=== PATIENT | male | born 1955 | race African-American/Black ===

== ENCOUNTER 2016-07-12 22:19 | Inpatient (IN) ==
[2016-07-12] MEDS ORDERED: FUROSEMIDE 40 MG/4 ML VIAL IV STA ×2 (22:35→23:52)
[2016-07-12] MEDS ORDERED: FUROSEMIDE 40 MG/4 ML VIAL ONE ×2 (22:36→23:52)
--- NOTE | 2016-07-12 23:00 | CT Report ---
Referring physician: Fadi Haddad Exam: CT brain without contrast Date: July 12, 2016 Comparison: None Reason: Altered mental status The patient is an Emergency Department patient on July 12, 2016. Technique: Axial images of the head were obtained without the use of contrast. Total DLP was 1073.1 mGy*cm. Findings: No hydrocephalus or midline shift is present. There is no evidence of an acute infarction, recent intracranial hemorrhage or abnormal mass effect. The osseous structures appear intact. The mastoid air cells and visualized paranasal sinuses are clear. Impression: No acute intracranial abnormality is identified. The CT exam was performed using one or more of the following dose reduction techniques: Automated exposure control and adjustment of the mA and/or kV according to patient size. PROCEDURE INTERPRETED AT [facility] DEPARTMENT OF RADIOLOGY Final Report Signed by: Dr. Dewayne Joiner
[2016-07-12 23:15] LABS: ABG HCO3 26.9 MMOL/L (20-26); ABG Oxygen Saturation 93.3 % (95-100); ABG PCO2 51.5 MM HG (35-48); ABG PH 7.366 (7.35-7.45); ABG PO2 69.9 MM HG (80-95); ABG TCO2 25.7 MMOL/L (23-27); Allen Test Positive
[2016-07-12 23:25] LABS: Basophils % 0.4 % (0.0-0.8); Eosinophils # 0.6 10*3/uL (0.0-0.87); Eosinophils % 8.1 % (0.00-10.9); Hematocrit 40.4 VOL% (42.0-52.0); Hemoglobin 13.8 GM/DL (14.0-18.0); Immature Granulocytes % 0.4 %; Immature Granulocytes Absolute 0.03 #; Lymphocytes # 1.9 10*3/uL (1.4-4.0); Lymphocytes % 28.4 % (21.2-54.2); Mean Corpuscular HGB Conc 34.2 GM/DL (32-36); Mean Corpuscular Hemoglobin 31 PG (27-34); Mean Corpuscular Volume 89.8 FL (87-102); Mean Platelet Volume 11.9 FL (9.6-12.0); Monocytes # 0.6 10*3/uL (0.11-0.8); Monocytes % 8.5 % (1.7-12.7); Neutrophils # 3.7 10*3/uL (1.4-7.4); Neutrophils % 54.2 % (38.7-73.9); Platelet Count 163 T/CUMM (130-400); Red Cell Distribution Width 13.9 % (9.3-17.3); White Blood Count 6.8 T/CUMM (4-12)
[2016-07-12 23:31] LABS: Apearance,Urine Slightly Hazy (Clear); Bilirubin,Urine Negative (Negative); Blood, Urine Negative (Negative); Glucose,Urine (UA) Negative (Negative); Hyaline Casts,Urine 4 /LPF (0-3); Ketones,Urine Negative (Negative); Mucus,Urine Occasional /LPF (Occasional); Nitrite,Urine Negative (Negative); Protein,Urine Negative; RBC,Urine 1 /HPF (0-4); Squamous Epithelial Cell,Urine Occasional /HPF (0-10); Urine Color Yellow (Yellow); Urine Specific Gravity 1.012 (1.001-1.035); Urine Urobilinogen < 2.0 EU/DL (0.2-1.0); WBC,Urine 1 /HPF (0-6)
[2016-07-12 23:35] LABS: Barbiturates Screen,Urine Negative (Negative); Benzodiazepines Screen,Urine Negative (Negative); Cannabinoid Screen,Urine Negative (Negative); Opiate Screen,Urine Negative (Negative); Phencyclidine Screen,Urine Negative (Negative)
[2016-07-12 23:43] LABS: Alanine Aminotransferase 63 U/L (16-61); Albumin 3.7 G/DL (3.4-5.0); Alkaline Phosphatase 67 U/L (45-117); Aspartate Amino Transferase 45 U/L (0-37); Bilirubin,Total < 0.39 MG/DL (0.2-1.0); Blood Urea Nitrogen 14 MG/DL (7-18); Calcium 9.6 MG/DL (8.5-10.1); Glucose 133 MG/DL (74-106); Potassium 3.2 MMOL/L (3.5-5.1); Sodium 143 MMOL/L (136-145)
[2016-07-12 23:46] LABS: Troponin I Only 0.032 NG/ML (0.00-0.045)
[2016-07-13] MEDS ORDERED: POTASSIUM CHLORIDE RIDER 100 ML IV ONE ×2 (00:18→07:47)
[2016-07-13] MEDS ORDERED: cefTRIAXone 1,000 MG in SODIUM CHLORIDE 0.9% 100 ML IV STA (00:39)
--- NOTE | 2016-07-13 00:39 | Emergency Department Note ---
I, Asha Jerome, am scribing for, and in the presence of, Faid Haddad MD 22:41 . IBoo Hans, MD, personally performed the services described in this documentation, ascribed by Asha Jerome in my presence, and it is both accurate and complete . Arrival - Arrival Chief Complaint: Shortness of Breath Stated Complaint: sob ED Nursing Triage Note: ems states pt called [facility] d/t sob cant understand what pt is saying d/t sob. 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 Pt is difficult to arouse and HPI was obtained from significant other. states pt's PCP is at the [facility] but pt has been admitted here before for similar sxs. reports she was at [facility] when pt called and told her he needed to go to the ER but pt had already called EMS. Pt denies CP. states she was with pt earlier today and he was normal and not drowsy. reports " he might start hitting because he thinks back to war." Pt has a PMHx of HTN, CHF , DM, dyslipidemia, asthma, COPD, GERD, and prostate CA. No other complaints/ pain in ED. Onset (ago): hour(s) Consistency: constant Severity: moderate, severe Severity scale (1-10): 6 Quality: other Allergies/Adverse Reactions: Allergies Allergy/AdvReac Type Severity Reaction Status Date / Time lisinopril AdvReac Cough Verified 03/01/16 10:11 Home Medications: Home Medications Medication Instructions Recorded Confirmed Type Albuterol Neb [Proventil Neb] 2.5 mg RESP TX Q6H PRN 02/05/16 03/01/16 History Atorvastatin [Lipitor] 20 mg PO BEDTIME 02/05/16 03/01/16 History Benztropine Mesylate 1 mg PO BEDTIME 02/05/16 03/01/16 History Budesonide/Formoterol 160-4.5 2 puff INH BID 02/05/16 03/01/16 History [Symbicort 160-4.5] Cyclobenzaprine HCl 10 mg PO TID PRN 02/05/16 03/01/16 History Furosemide Tab [Lasix Tab] 20 mg PO BID DIURETIC 02/05/16 03/01/16 History Gabapentin Cap/Tab [Neurontin 600 mg PO TID 02/05/16 03/01/16 History Cap/Tab] Ipratropium/Albuterol Inhaler 1 puff INH QID 02/05/16 03/01/16 History [Combivent Respimat Inhaler] Isosorbide Mononitrate [Isosorbide 60 mg PO BID 02/05/16 03/01/16 History Mononitrate ER] Loratadine 10 mg PO DAILY 02/05/16 03/01/16 History Metoprolol Tartrate Tab [Lopressor 75 mg PO BID 02/05/16 03/01/16 History Tab] Omeprazole [Prilosec] 40 mg PO DAILY 02/05/16 03/01/16 History Potassium Chloride Cap/Tab [K Dur] 20 meq PO BID 02/05/16 03/01/16 History Prazosin HCl 5 mg PO BEDTIME 02/05/16 03/01/16 History Sertraline HCl 100 mg PO DAILY 02/05/16 03/01/16 History Simethicone Chew Tab [Mylicon Chew 80 mg PO TIDPC 02/05/16 03/01/16 History Tab] Theophylline ER Tab 300 mg PO DAILY 02/05/16 03/01/16 History amLODIPine [Norvasc] 10 mg PO DAILY 02/05/16 03/01/16 History glipiZIDE [Glipizide] 20 mg PO BID 02/05/16 03/01/16 History risperiDONE [Risperidone] 3 mg PO BID #60 tablet NS 03/07/16 Rx Albuterol Inhaler [Proventil 2 puff INH Q4H PRN #1 inhaler 05/26/16 Rx Inhaler] predniSONE TAB [PredniSONE] 20 mg PO BID #20 tablet 05/26/16 Rx Review of System - Review of System 12 point system: reviewed and no additional remarkable complaints except as stated - Review of System Constitutional: Absent: chills, fever Respiratory: Present: other (SOB) Cardiovascular: Absent: chest pain Gastrointestinal: Absent: abdominal pain Musculoskeletal: Absent: arm pain, back pain, leg pain, neck pain Skin: Absent: rash Neurological: Absent: headache Medical,Surgical,& Family Hx - Medical History Cardio: History of: CHF, Hypertension Psychological: History of: Depression (PTSD) Endocrine: History of: Diabetes Mellitus (IDDM), Diabetes Mellitus (NIDDM), Dyslipidemia Respiratory: History of: Asthma, COPD, Obstructive Sleep Apnea Genitourinary: History of: Prostate Problems (prostate cancer), Problems ( urinary incontinence ocassionally) Gastrointestinal: History of: GERD - Surgical History Reproductive Surgeries: Surgical HX of;: Prostate Surgery (prostate removal) - Social History Smoking Status: Current every day smoker Frequency of Alcohol Use: None Type of Drug Use: None Exam Vital Signs: Vital Signs Temperature 97.8 F 07/12/16 22:20 Pulse Rate 83 07/12/16 22:20 Respiratory Rate 24 07/12/16 22:20 Blood Pressure 108/79 07/12/16 22:20 O2 Sat by Pulse Oximetry 91 L 07/12/16 22:20 - General General appearance: in no apparent distress, lethargic, other (difficult to arouse) - Head Head exam: Present: atraumatic, normocephalic - Eye Eye exam: Present: PERRL, EOMI - ENT ENT exam: Present: mucous membranes moist. Absent: mucous membranes dry - Neck Neck exam: Present: full ROM. Absent: tenderness - Chest Chest inspection: Present: symmetric chest wall rise. Absent: tenderness - Respiratory Respiratory exam: Present: accessory muscle use, other (expiratory crackles). Absent: wheezes - Cardiovascular Cardiovascular exam: Present: regular rate, normal rhythm, normal heart sounds - Abdominal Exam Abdominal exam: Present: soft. Absent: tenderness - Extremities Exam Extremities exam: Present: full ROM, other (lower extremity edema that is nonpiting in knees). Absent: tenderness - Back Exam Back exam: Present: full ROM. Absent: tenderness - Neurological Exam Neurological exam: Present: alert, oriented X3, CN II-XII intact. Absent: motor sensory deficit - Psychiatric Psychiatric exam: Present: normal affect, normal mood - Skin Skin exam: Present: warm, dry Course Course Narrative: This patient was evaluated with chest x-ray as well as lab work and urinalysis and ABG and EKG. He also had a head CT scan. He was made came back abnormal was cocaine in the urine and ammonia in the blood and a small transaminitis. His potassium was a little bit low so he was given some potassium in the ER. He also was given some Lasix for his history of CHF but did not produce a whole lot of urine. It appeared to have will be consistent with some sort of bronchitis as well as an ammonia level elevation which could be resulting in his altered mental status. His case was discussed with the hospitalist on-call who agreed to come and see him for admission to treat his encephalopathy from his ammonia and any underlying bronchitis that is occurring. Results - Labs CBC & BMP: 07/12/16 23:10 07/12/16 23:10 Lab Results: I have reviewed the patients labs Labs: Laboratory Tests 07/12/16 23:06 ABG pCO2 51.5 H ABG pO2 69.9 L ABG HCO3 26.9 H ABG O2 Saturation 93.3 L ABG Base Excess 3.0 H Laboratory Tests 07/12/16 23:10 Hgb 13.8 L Hct 40.4 L Laboratory Tests 07/12/16 23:10 Urine Color Yellow Urine Appearance Slightly hazy Urine pH 7.0 Ur Specific [place] 1.012 Urine Protein Negative Urine Glucose (UA) Negative Urine Ketones Negative Urine Blood Negative Urine Nitrate Negative Urine Bilirubin Negative Urine Urobilinogen < 2.0 H Urine Leukocytes Negative Urine RBC 1 Urine WBC 1 Ur Squamous Epith Cells Occasional Hyaline Casts 4 Urine Mucus Occasional Laboratory Tests 07/12/16 23:10 U Cocaine Metab Screen Positive H Laboratory Tests 07/12/16 23:10 Potassium 3.2 L Glucose 133 H AST 45 H ALT 63 H Laboratory Tests 07/12/16 23:10 Total Creatine Kinase 205 CK-MB (CK-2) 1.4 Troponin I 0.032 Laboratory Tests 07/12/16 23:10 Ammonia 58 H Laboratory Tests 07/12/16 23:10 B-Natriuretic Peptide 88 Laboratory Tests 07/12/16 23:15 Serum Alcohol < 15 L - Diagnostic Findings Procedure: CT: report reviewed by me (Head: No acute intracranial abnormality is identified.) Disposition Clinical Impression: History of congestive heart failure Case discussed with: patient, patient's family Disposition: Still a Patient Condition: Guarded Instructions: Bronchiolitis (ED) Time of Disposition: 00:39
[2016-07-13] MEDS: POTASSIUM CHLORIDE RIDER 10 MEQ in PREMIX 1 EACH IV SCH ×6 (00:41→07:53)
[2016-07-13] MEDS ORDERED: cefTRIAXone 1,000 MG VIAL ONE (01:53)
--- NOTE | 2016-07-13 02:08 | Hospitalist History & Physical ---
Assessment and Plan (1) Altered mental status Status: Acute Current Visit: Yes (2) Acute exacerbation of chronic obstructive pulmonary disease (COPD) Status: Acute Current Visit: No (3) Diabetes Status: Acute Current Visit: No Qualifiers: Diabetes mellitus type: type 2 (4) History of prostate cancer Status: Acute Current Visit: No (5) Hypertension Status: Chronic Current Visit: No Qualifiers: Hypertension type: essential hypertension Qualified Code(s): I10 - Essential (primary) hypertension (6) Obstructive sleep apnea Status: Chronic Assessment and plan: Plan for this patient will be transfer him to ICU. We will schedule breathing treatments and put him on steroids. Can repeat ABG in the morning. Schedule him some lactulose. Have DT precautions for him. Current Visit: No History of Present Illness Chief complaint: Shortness of breath History of present illness: Mr. Fournier is a 61 year old male with past medical history significant for hypertension, congestive heart failure, diabetes, dyslipidemia, COPD, asthma and reflux presents to our hospital tonight. Patient called his earlier saying that he could not breathe him to please come home. She started coming home that her daughter called her and said ambulance had been called and he had been taken up to the hospital. reports that he is a heavy drinker and smoker. And sometimes he will get confused and that he is back in the worst start hitting things. Patient's lethargic when I examined him and I do feel that it seems in a COPD exacerbation. He is definitely has obstructive sleep apnea. I do feel that a stay in the ICU at least tonight would be appropriate. I was consulted to admit him through the emergency room. Home Medications Medication Instructions Recorded Confirmed Type Albuterol Neb [Proventil Neb] 2.5 mg RESP TX Q6H PRN 02/05/16 03/01/16 History Atorvastatin [Lipitor] 20 mg PO BEDTIME 02/05/16 03/01/16 History Benztropine Mesylate 1 mg PO BEDTIME 02/05/16 03/01/16 History Budesonide/Formoterol 160-4.5 2 puff INH BID 02/05/16 03/01/16 History [Symbicort 160-4.5] Cyclobenzaprine HCl 10 mg PO TID PRN 02/05/16 03/01/16 History Furosemide Tab [Lasix Tab] 20 mg PO BID DIURETIC 02/05/16 03/01/16 History Gabapentin Cap/Tab [Neurontin 600 mg PO TID 02/05/16 03/01/16 History Cap/Tab] Ipratropium/Albuterol Inhaler 1 puff INH QID 02/05/16 03/01/16 History [Combivent Respimat Inhaler] Isosorbide Mononitrate [Isosorbide 60 mg PO BID 02/05/16 03/01/16 History Mononitrate ER] Loratadine 10 mg PO DAILY 02/05/16 03/01/16 History Metoprolol Tartrate Tab [Lopressor 75 mg PO BID 02/05/16 03/01/16 History Tab] Omeprazole [Prilosec] 40 mg PO DAILY 02/05/16 03/01/16 History Potassium Chloride Cap/Tab [K Dur] 20 meq PO BID 02/05/16 03/01/16 History Prazosin HCl 5 mg PO BEDTIME 02/05/16 03/01/16 History Sertraline HCl 100 mg PO DAILY 02/05/16 03/01/16 History Simethicone Chew Tab [Mylicon Chew 80 mg PO TIDPC 02/05/16 03/01/16 History Tab] Theophylline ER Tab 300 mg PO DAILY 02/05/16 03/01/16 History amLODIPine [Norvasc] 10 mg PO DAILY 02/05/16 03/01/16 History glipiZIDE [Glipizide] 20 mg PO BID 02/05/16 03/01/16 History risperiDONE [Risperidone] 3 mg PO BID #60 tablet NS 03/07/16 Rx Albuterol Inhaler [Proventil 2 puff INH Q4H PRN #1 inhaler 05/26/16 Rx Inhaler] predniSONE TAB [PredniSONE] 20 mg PO BID #20 tablet 05/26/16 Rx Allergies Allergy/AdvReac Type Severity Reaction Status Date / Time lisinopril AdvReac Cough Verified 03/01/16 10:11 Medical,Surgical,& Family Hx - Medical History Cardio: History of: CHF, Hypertension Psychological: History of: Depression (PTSD) Endocrine: History of: Diabetes Mellitus (IDDM), Diabetes Mellitus (NIDDM), Dyslipidemia Respiratory: History of: Asthma, COPD, Obstructive Sleep Apnea Genitourinary: History of: Prostate Problems (prostate cancer), Problems ( urinary incontinence ocassionally) Gastrointestinal: History of: GERD - Surgical History Reproductive Surgeries: Surgical HX of;: Prostate Surgery (prostate removal) - Family History Family History: Reports;: Family Heart Disease - Social History Smoking Status: Current every day smoker Frequency of Alcohol Use: None Type of Drug Use: None ROS unobtainable: due to mental status Exam - Constitutional Vitals: Period Temp Pulse Resp BP Sys/Chua Pulse Ox Last 24 Hr 97.8 F 83 24-24 108/79 91 General appearance: over weight - Head Head exam: Present: normal inspection - ENT ENT exam: Present: normal exam - Neck Neck exam: Present: normal inspection - Respiratory Respiratory exam: Present: wheezes - Cardiovascular Cardiovascular exam: Present: regular rate and rhythm - GI/Abdominal GI/Abdominal exam: Present: normal bowel sounds - Extremities Exam Extremities exam: Present: normal inspection - Back Exam Back exam: Present: normal inspection - Neurological Exam Neurological exam: Present: other (Patient's seem sedated) - Psychiatric Psychiatric exam: Present: flat affect - Skin Skin exam: Present: normal color Results - Labs CBC & BMP: 07/12/16 23:10 07/12/16 23:10
[2016-07-13] MEDS ORDERED: GLUCAGON 1 MG VIAL IM PRN (02:11)
[2016-07-13] MEDS ORDERED: DEXTROSE 50% 25 GM/50 ML VIAL IV PRN (02:11)
[2016-07-13] MEDS ORDERED: ALBUTEROL 2.5 MG/3 ML NEB RESP TX PRN (02:11)
[2016-07-13] MEDS ORDERED: ONDANSETRON 4 MG/2 ML VIAL IV PRN (02:11)
[2016-07-13] MEDS ORDERED: LACTULOSE 20 GM/30 ML UDCUP PO PRN (02:15)
[2016-07-13] MEDS ORDERED: LORazepam 1 MG TABLET PO PRN (02:16)
[2016-07-13] MEDS ORDERED: methylPREDNISolone SOD SUC 125 MG/2 ML VIAL IV SCH (04:00)
--- NOTE | 2016-07-13 05:52 | EKG Report ---
Stationary ECG Study [facility] ER Test Date: 07/12/2016 11:42:49 PM Pat Name: HAY GERONIMO Department: Room: 105 Gender: M Broadcast Correspondent: OLE : 1955 Requested by: Fadi Haddad Order Number: [id number] Reading MD: SABA SALGADO Intervals [place] Rate: 73 P: 67 ND: 149 QRS: 60 QRSD: 101 T: 77 QT: 406 QTc: 432 Interpretive Statements SINUS RHYTHM at 73 bpm INDETERMINATE AXIS INCOMPLETE RIGHT BUNDLE BRANCH BLOCK Electronically Signed On 07-16-16 16:15:47 CDT by SABA SALGADO [email or web address]
--- NOTE | 2016-07-13 06:53 | XRay Report ---
XR chest 1V portable Indication: Dyspnea Comparison: Chest x-ray dated May 26, 2016 Technique: Frontal views of the chest Findings: Cardiomediastinal silhouette is stable configuration. There is prominence of interstitial lung markings which may reflect chronic change, interstitial pulmonary edema, or interstitial pneumonia. Mild patchy opacification demonstrated within the left suprahilar and right infrahilar lung suspicious for pneumonia or pulmonary edema. Osseous and surrounding soft tissue structures appear grossly unchanged. IMPRESSION: As above. PROCEDURE INTERPRETED AT [facility] [place] DEPARTMENT OF RADIOLOGY Final Report Signed by: Dr Erick Pinzon
[2016-07-13] MEDS: ALBUTEROL/IPRATROPIUM 3 ML NEB RESP TX SCH ×3 (07:52→19:33)
[2016-07-13 07:57] LABS: ABG Base Excess 1.5 MMOL/L (-2.5-2.5); ABG HCO3 25.8 MMOL/L (20-26); ABG Oxygen Saturation 99.6 % (95-100); ABG PCO2 56.6 MM HG (35-48); ABG PH 7.319 (7.35-7.45); ABG TCO2 25.7 MMOL/L (23-27)
[2016-07-13 07:59] LABS: Basophils % 0.3 % (0.0-0.8); Eosinophils # 0.1 10*3/uL (0.0-0.87); Eosinophils % 1.3 % (0.00-10.9); Hematocrit 39.3 VOL% (42.0-52.0); Hemoglobin 13.3 GM/DL (14.0-18.0); Immature Granulocytes % 0.3 %; Immature Granulocytes Absolute 0.02 #; Lymphocytes # 0.6 10*3/uL (1.4-4.0); Lymphocytes % 8.1 % (21.2-54.2); Mean Corpuscular HGB Conc 33.8 GM/DL (32-36); Mean Corpuscular Hemoglobin 31 PG (27-34); Mean Corpuscular Volume 91.4 FL (87-102); Mean Platelet Volume 11.5 FL (9.6-12.0); Monocytes # 0.1 10*3/uL (0.11-0.8); Monocytes % 1.6 % (1.7-12.7); Neutrophils # 6.7 10*3/uL (1.4-7.4); Neutrophils % 88.4 % (38.7-73.9); Platelet Count 155 T/CUMM (130-400); Red Cell Distribution Width 14.1 % (9.3-17.3); White Blood Count 7.6 T/CUMM (4-12)
[2016-07-13] MEDS ORDERED: POTASSIUM CHLORIDE RIDER 10 MEQ in PREMIX 1 EACH IV SCH (08:00)
[2016-07-13 08:31] LABS: Albumin 3.6 G/DL (3.4-5.0); Bilirubin,Total 0.4 MG/DL (0.2-1.0); Calcium 9.1 MG/DL (8.5-10.1); Osmolality,Calculated 284.5 MOS/KG (273-304); Total Protein 6.8 G/DL (6.4-8.3)
[2016-07-13] MEDS: INSULIN REGULAR 100 UNIT/ML SUBCUT SCH ×4 (09:30→21:51)
[2016-07-13] MEDS ORDERED: AZITHROMYCIN 250 MG TABLET PO ONE (09:32)
--- NOTE | 2016-07-13 10:07 | Hospitalist Progress Note ---
Assessment and Plan - Time spent with patient Time spent with patient: Greater than 30 minutes (1) Community acquired pneumonia Status: Acute Assessment and plan: Continue Rocephin and azithromycin. Current Visit: Yes (2) Acute exacerbation of chronic obstructive pulmonary disease (COPD) Status: Acute Assessment and plan: Continue antibiotics, corticosteroids, bronchodilators. Patient receiving Rocephin and azithromycin. Repeat chest x-ray in 48 hours for follow-up. Current Visit: No (3) Diabetes Status: Chronic Assessment and plan: Continue home medications with sliding scale Accu-Cheks and insulin as well as diabetic diet. Current Visit: No Qualifiers: Diabetes mellitus type: type 2 Diabetes mellitus complication status: without complication (4) Hypertension Status: Chronic Current Visit: No Qualifiers: Hypertension type: essential hypertension Qualified Code(s): I10 - Essential (primary) hypertension (5) Obstructive sleep apnea Status: Chronic Current Visit: No (6) Altered mental status Status: Resolved Current Visit: Yes Qualifiers: Altered mental status type: delirium Qualified Code(s): R41.0 - Disorientation, unspecified Hospitalist: Subjective Interval history: Patient seen and examined. No acute events overnight. Case discussed with nursing staff. Labs reviewed. 61-year-old male admitted with COPD exacerbation and possible pneumonia with altered mental status. He is awake and alert and oriented this morning. He sounds congested and has bilateral rhonchi. Azithromycin was added to Rocephin to cover community-acquired pneumonia. Exam - Constitutional Vitals: Period Temp Pulse Resp BP Sys/Chua Pulse Ox Last 24 Hr 98.2 F-98.4 F 77-85 17-33 87-129/57-94 96-100 Exam: Constitutional System: Mild distress. No tremulousness. Head: Normocephalic, atraumatic. Ears, Nose and Throat System: No pain or tenderness. No epistaxis or discharge Eyes System: Pupils equal, round, and reactive. Extraocular muscles intact. Neck: Supple, without adenopathy, No jugular venous distention. No thyromegaly, neck mass, or prior surgery apparent. Respiratory System: Chest coarse breath sounds to auscultation. Cardiovascular System: Heart with regular rate and rhythm. No murmur. GI System: Abdomen soft, nontender. Normo active bowel sounds present. Musculoskeletal System: limbs with no pedal edema. Full distal pulses. Neurological System: No discernable sensory deficit. No aphasia Psychiatric System: Conversation is rational Results - Labs CBC & BMP: 07/13/16 07:50 07/13/16 07:50 Lab Results: I have reviewed the past 24 hour labs - Diagnostic Findings Procedure: Chest x-ray: image reviewed by me, report reviewed by me Specialty Discharge - Follow Up or Referrals
[2016-07-13] MEDS: PANTOPRAZOLE 40 MG TABLET PO SCH (10:08)
[2016-07-13] MEDS: FOLIC ACID 1 MG TABLET PO SCH (10:09)
[2016-07-13] MEDS: THIAMINE 100 MG TABLET PO SCH (10:09)
[2016-07-13] MEDS: MULTIVITAMIN (CENTRUM) TABLET PO SCH (10:10)
[2016-07-13] MEDS: methylPREDNISolone SOD SUC 40 MG/1 ML VIAL IV SCH ×2 (10:11→18:49)
[2016-07-13] MEDS: ENOXAPARIN 40 MG/0.4 ML SYRINGE SUBCUT SCH (10:12)
[2016-07-13] MEDS: ISOSORBIDE MONONITRATE 60 MG TABLET PO SCH ×2 (10:55→21:44)
--- NOTE | 2016-07-13 11:18 | Sleep Medicine Consult ---
Assessment and Plan (1) Obstructive sleep apnea Status: Chronic Assessment and plan: We can place on auto CPAP therapy with pressure range from 12-20 cm with supplemental oxygen as needed. However, with his pulmonary illness, CPAP may not be his best intervention and I would defer to pulmonary medicine for whether BiPAP would better serve him. We will have CPAP available if he improves enough to utilize it. We will follow-up with him once he is medically stable. Current Visit: No History of Present Illness Chief complaint: Sleep apnea History of present illness: Mr. Fournier is a 61 year old male admitted with acute respiratory insufficiency, altered mental status, community-acquired pneumonia, and influenza B. He is encephalopathic and was unable to give me any history. There was concern expressed by the admitting service regarding sleep apnea. On review of his records, he does have a history of obstructive sleep apnea diagnosed by polysomnography here on 07/01/2012. He had a diagnostic AHI of 28.1 and was treated with CPAP and had excellent results on titration through 16 cm of CPAP. Best treatment was felt to be 15 cm. He also had periodic limb movements and medical therapy for periodic limb movement disorder was recommended. [facility]. I do not have any records of compliance or follow-up on him. Home Medications Medication Instructions Recorded Confirmed Type Albuterol Neb [Proventil Neb] 2.5 mg RESP TX Q6H PRN 02/05/16 07/13/16 History Atorvastatin [Lipitor] 20 mg PO BEDTIME 02/05/16 07/13/16 History Benztropine Mesylate 1 mg PO BEDTIME 02/05/16 07/13/16 History Budesonide/Formoterol 160-4.5 2 puff INH BID 02/05/16 07/13/16 History [Symbicort 160-4.5] Cyclobenzaprine HCl 10 mg PO TID PRN 02/05/16 07/13/16 History Furosemide Tab [Lasix Tab] 20 mg PO BID DIURETIC 02/05/16 07/13/16 History Gabapentin Cap/Tab [Neurontin 600 mg PO TID 02/05/16 07/13/16 History Cap/Tab] Ipratropium/Albuterol Inhaler 1 puff INH QID 02/05/16 07/13/16 History [Combivent Respimat Inhaler] Isosorbide Mononitrate [Isosorbide 60 mg PO BID 02/05/16 07/13/16 History Mononitrate ER] Loratadine 10 mg PO DAILY 02/05/16 07/13/16 History Metoprolol Tartrate Tab [Lopressor 75 mg PO BID 02/05/16 07/13/16 History Tab] Omeprazole [Prilosec] 40 mg PO DAILY 02/05/16 07/13/16 History Potassium Chloride Cap/Tab [K Dur] 20 meq PO BID 02/05/16 07/13/16 History Prazosin HCl 5 mg PO BEDTIME 02/05/16 07/13/16 History Sertraline HCl 100 mg PO DAILY 02/05/16 07/13/16 History Simethicone Chew Tab [Mylicon Chew 80 mg PO TIDPC 02/05/16 07/13/16 History Tab] Theophylline ER Tab 300 mg PO DAILY 02/05/16 07/13/16 History amLODIPine [Norvasc] 10 mg PO DAILY 02/05/16 07/13/16 History glipiZIDE [Glipizide] 20 mg PO BID 02/05/16 07/13/16 History risperiDONE [Risperidone] 3 mg PO BID #60 tablet NS 03/07/16 07/13/16 Rx Albuterol Inhaler [Proventil 2 puff INH Q4H PRN #1 inhaler 05/26/16 07/13/16 Rx Inhaler] predniSONE TAB [PredniSONE] 20 mg PO BID #20 tablet 05/26/16 07/13/16 Rx Allergies Allergy/AdvReac Type Severity Reaction Status Date / Time lisinopril AdvReac Cough Verified 03/01/16 10:11 ROS unobtainable: due to mental status Exam (Pulmonay) H&P - Constitutional Vitals: Period Temp Pulse Resp BP Sys/Chua Pulse Ox Last 24 Hr 98.2 F-98.4 F 77-85 17-33 87-129/57-94 96-100 Exam: He is encephalopathic but arousable. Pupils equal round reactive to light. Oropharynx with a class IV Mallampati exam and dry oral mucosa neck supple without adenopathy. Chest with scattered rhonchi and few crackles bilaterally. Cardiac exam reveals a regular rhythm without murmur gallop. Abdomen soft nontender without palpable hepatosplenomegaly or mass. Extremities are without clubbing, cyanosis, or edema. Neurologically, he he is encephalopathic but will move extremities to painful stimuli. Medical,Surgical,& Family Hx - Medical History Cardio: History of: CHF, Hypertension Psychological: History of: Depression (PTSD) Endocrine: History of: Diabetes Mellitus (IDDM), Diabetes Mellitus (NIDDM), Dyslipidemia Respiratory: History of: Asthma, COPD Genitourinary: History of: Prostate Problems (prostate cancer), Problems ( urinary incontinence ocassionally) Gastrointestinal: History of: GERD - Surgical History Reproductive Surgeries: Surgical HX of;: Prostate Surgery (prostate removal) - Family History Family History: Reports;: Family Heart Disease - Social History Smoking Status: Current every day smoker Frequency of Alcohol Use: None Type of Drug Use: None Results - Labs CBC & BMP: 07/13/16 07:50 07/13/16 07:50 Lab Results: I have reviewed the past 24 hour labs Specialty Discharge - Follow Up or Referrals
[2016-07-13] MEDS: ACETAMINOPHEN 325 MG TABLET PO PRN (19:45)
[2016-07-13] MEDS ORDERED: PRAZOSIN 1 MG CAPSULE PO SCH (21:00)
[2016-07-13] MEDS: glipiZIDE 10 MG TABLET PO SCH (21:43)
[2016-07-13] MEDS: BENZTROPINE 1 MG TABLET PO SCH (21:43)
[2016-07-13] MEDS: ATORVASTATIN 20 MG TABLET PO SCH (21:44)
[2016-07-13] MEDS: METOPROLOL TARTRATE 50 MG TABLET PO SCH (21:44)
[2016-07-13] MEDS: PRAZOSIN 1 MG CAPSULE PO SCH (21:45)
[2016-07-13] MEDS: BUDESONIDE/FORMOTEROL 160-4.5 INHALER 6 GM INH SCH (21:47)
[2016-07-13] MEDS: risperiDONE 1 MG TABLET PO SCH (21:47)
[2016-07-14] MEDS: methylPREDNISolone SOD SUC 40 MG/1 ML VIAL IV SCH ×3 (01:09→18:43)
[2016-07-14] MEDS: cefTRIAXone 1,000 MG in SODIUM CHLORIDE 0.9% 100 ML IV SCH (01:10)
[2016-07-14] MEDS: ALBUTEROL/IPRATROPIUM 3 ML NEB RESP TX SCH ×4 (04:11→19:13)
[2016-07-14 05:45] LABS: Hematocrit 36.9 VOL% (42.0-52.0); Hemoglobin 12.5 GM/DL (14.0-18.0); Immature Granulocytes % 0.6 %; Immature Granulocytes Absolute 0.05 #; Lymphocytes # 0.5 10*3/uL (1.4-4.0); Lymphocytes % 6.4 % (21.2-54.2); Mean Corpuscular HGB Conc 33.9 GM/DL (32-36); Mean Corpuscular Hemoglobin 30 PG (27-34); Mean Corpuscular Volume 88.7 FL (87-102); Mean Platelet Volume 12.5 FL (9.6-12.0); Monocytes # 0.2 10*3/uL (0.11-0.8); Monocytes % 2.1 % (1.7-12.7); Neutrophils # 7.5 10*3/uL (1.4-7.4); Neutrophils % 90.9 % (38.7-73.9); Platelet Count 132 T/CUMM (130-400); Red Blood Count 4.16 MC/CUMM (3.8-5.5); Red Cell Distribution Width 13.4 % (9.3-17.3); White Blood Count 8.3 T/CUMM (4-12)
[2016-07-14 06:22] LABS: Calcium 9.6 MG/DL (8.5-10.1); Magnesium 2.1 MG/DL (1.8-2.4); Osmolality,Calculated 291.1 MOS/KG (273-304); Potassium 4.3 MMOL/L (3.5-5.1)
[2016-07-14 08:11] LABS: Lymphocytes 3 % (20-55); Segmented Neutrophils 93 % (50-85); Total Cells Counted 100
[2016-07-14 08:12] LABS: Hypochromasia 2+; Microcytosis 1+; Platelet Estimate Adequate
[2016-07-14] MEDS: risperiDONE 1 MG TABLET PO SCH ×2 (08:35→22:13)
[2016-07-14] MEDS: ISOSORBIDE MONONITRATE 60 MG TABLET PO SCH ×2 (08:36→22:07)
[2016-07-14] MEDS: glipiZIDE 10 MG TABLET PO SCH ×2 (08:36→22:07)
[2016-07-14] MEDS: THEOPHYLLINE ER 300 MG TABLET PO SCH (08:37)
[2016-07-14] MEDS: THIAMINE 100 MG TABLET PO SCH (08:37)
[2016-07-14] MEDS: METOPROLOL TARTRATE 50 MG TABLET PO SCH ×2 (08:38→22:07)
[2016-07-14] MEDS: AZITHROMYCIN 250 MG TABLET PO SCH (08:40)
[2016-07-14] MEDS: MULTIVITAMIN (CENTRUM) TABLET PO SCH (08:40)
[2016-07-14] MEDS: ENOXAPARIN 40 MG/0.4 ML SYRINGE SUBCUT SCH (08:41)
[2016-07-14] MEDS: PANTOPRAZOLE 40 MG TABLET PO SCH (08:41)
[2016-07-14] MEDS: SERTRALINE 100 MG TABLET PO SCH (08:41)
[2016-07-14] MEDS: FOLIC ACID 1 MG TABLET PO SCH (08:41)
[2016-07-14] MEDS: INSULIN REGULAR 100 UNIT/ML SUBCUT SCH ×4 (08:42→22:09)
[2016-07-14] MEDS: ACETAMINOPHEN 325 MG TABLET PO PRN (09:15)
[2016-07-14] MEDS: BUDESONIDE/FORMOTEROL 160-4.5 INHALER 6 GM INH SCH ×2 (09:15→22:10)
--- NOTE | 2016-07-14 09:17 | Hospitalist Progress Note ---
Assessment and Plan (1) Acute respiratory failure with hypoxia Status: Acute Assessment and plan: Patient respiratory status at this point is optimal. With nasal cannula oxygen , 3 L/min he has saturation of 94%. Stable enough to be transferred to a monitored bed. Current Visit: Yes (2) Acute respiratory acidosis Status: Acute Assessment and plan: This is now resolved patient will be transferred from the ICU Current Visit: Yes (3) Cocaine use Status: Acute Assessment and plan: Patient has been counseled on this. I am informed states it is something that you are not supposed to. Visual use cannot be ascertained at this time there is mention of heavy smoking and heavy drinking as reported in subjective information act admission. risk for abuse is very high. Current Visit: Yes (4) Acute exacerbation of chronic obstructive pulmonary disease (COPD) Status: Acute Assessment and plan: Continue bronchodilators and steroids. This can be continued on the floor. Monitor respiratory status increase activity with ambulation 3 times a day Current Visit: No Hospitalist: Subjective Interval history: Patient has been seen interviewed and examined chart has been reviewed. Admitted to the hospital yesterday with acute exacerbation of COPD acute respiratory failure with hypoxia and hypercapnia and mild respiratory acidosis. There is history of heavy drinking and smoking. Evaluate admission his alcohol level is less than 15 mg percent. He did test positive for cocaine metabolites. With recurrent respiratory failure workup for myocardial infarction was negative markers Exam - Constitutional Vitals: Period Temp Pulse Resp BP Sys/Chua Pulse Ox Last 24 Hr 97.4 F-98.2 F 69-88 17-26 102-137/64-84 90-98 General appearance: normal weight - Head Head exam: Present: normocephalic, atraumatic - Eye Eye exam: Present: EOMI Pupils: Present: CHIQUITA - ENT ENT exam: Present: normal exam, normal oropharynx - Neck Neck exam: Present: other (Supple neck no JVD or bruits no adenopathy) - Respiratory Respiratory exam: Present: clear to auscultation bilaterally, other (Mild wheezing mid to end expiratory. Paroxysmal coughing with a congested cough but no production no rhonchi positive crackles) - Cardiovascular Cardiovascular exam: Present: regular rate and rhythm - GI/Abdominal GI/Abdominal exam: Present: normal bowel sounds, soft, other (No guarding no rebound tenderness no hepatosplenomegaly) - Extremities Exam Extremities exam: Present: full ROM - Back Exam Back exam: Present: normal inspection - Neurological Exam Neurological exam: Present: alert, oriented X3, CN II-XII intact - Psychiatric Psychiatric exam: Present: normal affect, normal mood - Skin Skin exam: Present: normal color, warm, dry Results - Labs CBC & BMP: 07/14/16 05:23 07/14/16 05:23 Lab Results: I have reviewed the past 24 hour labs Specialty Discharge - Follow Up or Referrals
[2016-07-14] MEDS: PRAZOSIN 1 MG CAPSULE PO SCH (22:07)
[2016-07-14] MEDS: BENZTROPINE 1 MG TABLET PO SCH (22:08)
[2016-07-14] MEDS: ATORVASTATIN 20 MG TABLET PO SCH (22:08)
[2016-07-15] MEDS: ALBUTEROL/IPRATROPIUM 3 ML NEB RESP TX SCH ×4 (00:20→20:14)
[2016-07-15] MEDS: cefTRIAXone 1,000 MG in SODIUM CHLORIDE 0.9% 100 ML IV SCH (02:07)
[2016-07-15] MEDS: methylPREDNISolone SOD SUC 40 MG/1 ML VIAL IV SCH ×3 (02:08→21:30)
--- NOTE | 2016-07-15 09:32 | XRay Report ---
XR chest 1V portable Indication: Pneumonia, COPD Comparison: 12 Jul 2016 Findings: The heart and mediastinum are stable in size and configuration. The pulmonary vascularity is slightly increased with bilateral increased interstitial lung density. No other lung infiltrates, effusions, pneumothorax or other abnormality is demonstrated. Impression: Findings suggest mild cardiac decompensation. PROCEDURE INTERPRETED AT [facility] DEPARTMENT OF RADIOLOGY Final Report Signed by: Dr. Daquan Walker
[2016-07-15] MEDS: INSULIN REGULAR 100 UNIT/ML SUBCUT SCH ×4 (09:36→21:29)
[2016-07-15] MEDS: ENOXAPARIN 40 MG/0.4 ML SYRINGE SUBCUT SCH (09:38)
[2016-07-15] MEDS: risperiDONE 1 MG TABLET PO SCH ×2 (09:46→20:59)
[2016-07-15] MEDS: THIAMINE 100 MG TABLET PO SCH (09:46)
[2016-07-15] MEDS: PANTOPRAZOLE 40 MG TABLET PO SCH (09:46)
[2016-07-15] MEDS: ISOSORBIDE MONONITRATE 60 MG TABLET PO SCH ×2 (09:46→20:59)
[2016-07-15] MEDS: THEOPHYLLINE ER 300 MG TABLET PO SCH (09:46)
[2016-07-15] MEDS: AZITHROMYCIN 250 MG TABLET PO SCH (09:47)
[2016-07-15] MEDS: METOPROLOL TARTRATE 50 MG TABLET PO SCH ×2 (09:47→21:00)
[2016-07-15] MEDS: FOLIC ACID 1 MG TABLET PO SCH (09:47)
[2016-07-15] MEDS: glipiZIDE 10 MG TABLET PO SCH ×2 (09:47→21:00)
[2016-07-15] MEDS: SERTRALINE 100 MG TABLET PO SCH (09:47)
[2016-07-15] MEDS: BUDESONIDE/FORMOTEROL 160-4.5 INHALER 6 GM INH SCH ×2 (10:47→20:56)
[2016-07-15] MEDS: MULTIVITAMIN (CENTRUM) TABLET PO SCH (10:47)
[2016-07-15] MEDS ORDERED: FUROSEMIDE 40 MG/4 ML VIAL IV ONE (12:42)
--- NOTE | 2016-07-15 12:45 | Hospitalist Progress Note ---
Assessment and Plan (1) Acute exacerbation of chronic obstructive pulmonary disease (COPD) Status: Acute Assessment and plan: The patient's shortness of breath and hypoxemia are improving with treatment of acute lung infection and COPD. The patient will decrease steroid today and recheck electrolytes tomorrow. I am going to give a dose of Lasix to improve interstitial edema. Current Visit: No (2) Community acquired pneumonia Status: Acute Current Visit: Yes Hospitalist: Subjective Interval history: This patient was admitted to the hospital with interstitial pneumonia. The patient states his cough is persistent but sputum production is improving. She still has shortness of breath which is moderate upon exertion. The patient denies angina or palpitations. Exam - Constitutional Vitals: Period Temp Pulse Resp BP Sys/Chua Pulse Ox Last 24 Hr 97.2 F-98.3 F 70-88 16-24 123-165/73-99 88-98 Exam: Constitutional System: Mild distress. No tremulousness. Head: Normocephalic, atraumatic. Ears, Nose and Throat System: No evidence of Otitis or Mastoiditis. No epistaxis or discharge Eyes System: Pupils equal, round, and reactive. Extraocular muscles intact. Neck: Supple, without adenopathy, No jugular venous distention. No thyromegaly , neck mass, or prior surgery apparent. Respiratory System: Chest generally clear with a few scattered rhonchi to auscultation. Cardiovascular System: Heart with regular rate and rhythm. No murmur. GI System: Abdomen soft, nontender. Normo active bowel sounds present. Musculoskeletal System: limbs with no pedal edema. Full distal pulses. Neurological System: No discernable sensory deficit. No aphasia Psychiatric System: Conversation is rational Results - Labs CBC & BMP: 07/14/16 05:23 07/14/16 05:23 Lab Results: I have reviewed the past 24 hour labs - Diagnostic Findings Procedure: Chest x-ray: report reviewed by me, image reviewed by me (The patient has globular heart with some vascular redistribution. The interstitial pattern infiltrate is improving) Specialty Discharge - Follow Up or Referrals
[2016-07-15] MEDS: BENZTROPINE 1 MG TABLET PO SCH (20:57)
[2016-07-15] MEDS: PRAZOSIN 1 MG CAPSULE PO SCH (20:58)
[2016-07-15] MEDS: ATORVASTATIN 20 MG TABLET PO SCH (20:58)
[2016-07-16] MEDS: cefTRIAXone 1,000 MG in SODIUM CHLORIDE 0.9% 100 ML IV SCH (01:53)
[2016-07-16 05:50] LABS: Calcium 9.3 MG/DL (8.5-10.1); Magnesium 2.1 MG/DL (1.8-2.4); Osmolality,Calculated 288.5 MOS/KG (273-304)
[2016-07-16] MEDS: ALBUTEROL/IPRATROPIUM 3 ML NEB RESP TX SCH (07:23)
[2016-07-16] MEDS: METOPROLOL TARTRATE 50 MG TABLET PO SCH (08:29)
[2016-07-16] MEDS: PANTOPRAZOLE 40 MG TABLET PO SCH (08:30)
[2016-07-16] MEDS: glipiZIDE 10 MG TABLET PO SCH (08:30)
[2016-07-16] MEDS: FOLIC ACID 1 MG TABLET PO SCH (08:30)
[2016-07-16] MEDS: MULTIVITAMIN (CENTRUM) TABLET PO SCH (08:30)
[2016-07-16] MEDS: THIAMINE 100 MG TABLET PO SCH (08:30)
[2016-07-16] MEDS: THEOPHYLLINE ER 300 MG TABLET PO SCH (08:30)
[2016-07-16] MEDS: INSULIN REGULAR 100 UNIT/ML SUBCUT SCH ×2 (08:31→12:56)
[2016-07-16] MEDS: SERTRALINE 100 MG TABLET PO SCH (08:31)
[2016-07-16] MEDS: risperiDONE 1 MG TABLET PO SCH (08:31)
[2016-07-16] MEDS: ISOSORBIDE MONONITRATE 60 MG TABLET PO SCH (08:31)
[2016-07-16] MEDS: AZITHROMYCIN 250 MG TABLET PO SCH (08:31)
[2016-07-16] MEDS: BUDESONIDE/FORMOTEROL 160-4.5 INHALER 6 GM INH SCH (08:32)
[2016-07-16] MEDS: ENOXAPARIN 40 MG/0.4 ML SYRINGE SUBCUT SCH (08:32)
--- NOTE | 2016-07-16 10:59 | Physician Query Form ---
CLICK EDIT DOCUMENT TO SELECT QUERY ANSWER --> OK --> SIGN Radha Malik RN, CCDS Certified Clinical Speech Language Pathologist Assistant W) [phone] (f) [phone] [email or web address] PROVIDERS: Make your selection(s) from the choices in EACH section by typing an "x" and enter comments in the comment section. Please use your independent medical judgment in providing your response. This request does not imply that any particular answer is desired or expected. CLINICAL INDICATORS: (Providers should not edit this section) The medical record indicates that the patient was admitted with acute exacerbation of COPD, AMS, "an ammonia level elevation" and the patient was treated with Chronulac. Based on the above, could you clarify the appropriate diagnosis, if significant , that supports the above abnormalities and additional evaluation, monitoring, and/or treatment rendered: (X ) patient was treated or monitored for hepatic encephalopathy ( ) patient was not treated or monitored for hepatic encephalopathy ( ) patient was treated or monitored for encephalopathy due to ___ ( ) Other, please specify: ( ) Clinically unable to determine COMMENTS: PLEASE ALSO DOCUMENT RESPONSE IN PROGRESS NOTES AND/OR DISCHARGE SUMMARY Use of terms such as suspected, likely, or probable (associated with a specific diagnosis that is being evaluated, monitored, or treated as if it exists) are acceptable and can be restated in the discharge summary if not ruled out. MTDD
--- NOTE | 2016-07-16 11:00 | Physician Query Form ---
CLICK EDIT DOCUMENT TO SELECT QUERY ANSWER --> OK --> SIGN Radha Malik RN, CCDS Certified Clinical Oven Heater Helper W) [phone] (f) [phone] [email or web address] PROVIDERS: Make your selection(s) from the choices in EACH section by typing an "x" and enter comments in the comment section. Please use your independent medical judgment in providing your response. This request does not imply that any particular answer is desired or expected. CLINICAL INDICATORS: (Providers should not edit this section) The medical record indicates that the patient was admitted with acute exacerbation of COPD, "accessory muscle use", SOB, "other (expiratory crackles) ", treated with Non Rebreather Mask some on the AND respiratory failure is mentioned on the . As the attending MD can you please clarify if the respiratory failure was ? ABG's on the : ABG pH 7.366--- pCO2 51.5---p02 69.9---- Diagnosis: Respiratory Failure Please clarify the status of (diagnosis) based on the above: (X ) The above diagnosis was present on admission ( ) The above diagnosis was NOT present on admission ( ) Other, please specify: ( ) Clinically unable to determine COMMENTS: PLEASE ALSO DOCUMENT RESPONSE IN PROGRESS NOTES AND/OR DISCHARGE SUMMARY Use of terms such as suspected, likely, or probable (associated with a specific diagnosis that is being evaluated, monitored, or treated as if it exists) are acceptable and can be restated in the discharge summary if not ruled out. MTDD
[2016-07-16] MEDS: methylPREDNISolone SOD SUC 40 MG/1 ML VIAL IV SCH (12:55)
--- NOTE | 2016-07-16 13:09 | Discharge Summary ---
Hospital Course - Hospital Course Hospital Course: Mr. greenfield was admitted to the hospital with shortness of breath cough and wheezing. He was treated for COPD exacerbation with IV antibiotics, intravenous steroid, and beta agonist nebulized breathing therapies. The patient improved over 5 days period of time and is now ready for discharge home to continue treatment with oral antibiotics oral steroid and inhaled beta agonist nebulizer. The patient [place] up [place]. The patient's sleep apnea diagnosis was confirmed and he needs further follow-up with the ink blender at the [place] in [place] according to Dr. Garcia. On the date of discharge, the patient is enthusiastic about his improvement, has clear chest with minimal to moderate air trapping and no wheezing. The patient has minimal upper airway congestion. Discharge time is 32 minutes. - Time spent with patient Time with patient DS: Greater than 30 minutes Time spent discussing smoking cessation with patient: 3 to 10 minutes Diagnosis - Discharge Diagnosis (1) Acute exacerbation of chronic obstructive pulmonary disease (COPD) Status: Resolved (2) Community acquired pneumonia Status: Resolved Specialty Discharge - Follow Up or Referrals Discharge Plan - Discharge Data Disposition: Disch To Home/Self Care Condition at Discharge: Stable Discharge Diet: advance to your usual diet Activity: resume usual activities as tolerated Hygiene: no restrictions Weight Bearing at Discharge: full weight bearing - Discharge Medications New Cefuroxime Tab [Ceftin] 250 mg PO BID #14 tablet Continue Potassium Chloride Cap/Tab [K Dur] 20 meq PO BID Ipratropium/Albuterol Inhaler [Combivent Respimat Inhaler] 1 puff INH QID amLODIPine [Norvasc] 10 mg PO DAILY Albuterol Neb [Proventil Neb] 2.5 mg RESP TX Q6H PRN PRN Reason: Shortness Of Breath/Wheezing Atorvastatin [Lipitor] 20 mg PO BEDTIME Budesonide/Formoterol 160-4.5 [Symbicort 160-4.5] 2 puff INH BID Isosorbide Mononitrate [Isosorbide Mononitrate ER] 60 mg PO BID glipiZIDE [Glipizide] 20 mg PO BID Omeprazole [Prilosec] 40 mg PO DAILY Prazosin HCl 5 mg PO BEDTIME Theophylline ER Tab 300 mg PO DAILY Metoprolol Tartrate Tab [Lopressor Tab] 75 mg PO BID Sertraline HCl 100 mg PO DAILY Benztropine Mesylate 1 mg PO BEDTIME Simethicone Chew Tab [Mylicon Chew Tab] 80 mg PO TIDPC Loratadine 10 mg PO DAILY Furosemide Tab [Lasix Tab] 20 mg PO BID DIURETIC Albuterol Inhaler [Proventil Inhaler] 2 puff INH Q4H PRN #1 inhaler PRN Reason: Shortness Of Breath/Wheezing risperiDONE [Risperidone] 3 mg PO BID #60 tablet NS predniSONE TAB [PredniSONE] 20 mg PO BID #20 tablet Discontinued Cyclobenzaprine HCl 10 mg PO TID PRN PRN Reason: Spasms Gabapentin Cap/Tab [Neurontin Cap/Tab] 600 mg PO TID - Follow Up or Referral - Forms/Instructions Instructions: Bronchiolitis (ED) Exam - Constitutional Vitals: Period Temp Pulse Resp BP Sys/Chua Pulse Ox Last 24 Hr 96 F-98.4 F 66-82 16-22 158-180/82-99 93-99 Discharge Results Labs on day of discharge: Labs from last 24 hours 07/16/16 07/16/16 07/15/16 07:52 03:49 20:56 Sodium 139 Potassium 4.0 Chloride 103 Carbon Dioxide 28 Anion Gap 12.0 BUN 24 H Creatinine 1.20 GFR Calculation 97 BUN/Creatinine Ratio 20.00 Glucose 235 H POC Glucose 199 H 292 H Calculated Osmolality 288.5 Calcium 9.3 Magnesium 2.1 DS: Provider Date of admission: 07/13/16 02:11 Primary care physician: . No PCP Attending physician on admission: Bridger Treviño MD Consults: 07/13/16 02:20 Consult to Sleep Center [CONS] Routine Reason for Sleep Center: Sleep Center Physician 07/13/16 03:52 Consult to Dietitian [CONS] Routine Reason for Dietitian: Dietary Consult Consult Comment: admit trigger Discharging clinician: Aries Hernandez MD
[2016-07-16 13:22] VITALS: BP 161/98
== END 2016-07-16 15:15 | disposition home or self-care (01) | DRG 189 ==
LOC: EDBD → EDUNIT# → N.ED 22:19 → N.EDINP 07-13 02:11 → SUATTDRO 07-13 02:11 → N.ICU 07-13 03:07 → N.4E 07-14 13:31
PROVIDERS: ADMIT Internal Medicine; ATTEND Internal Medicine

== ENCOUNTER 2016-10-07 07:51 | Inpatient (IN) ==
[2016-10-07] MEDS ORDERED: methylPREDNISolone SOD SUC 125 MG/2 ML VIAL IV STA (08:25)
[2016-10-07] MEDS ORDERED: cefTRIAXone 1,000 MG in SODIUM CHLORIDE 0.9% 100 ML IV STA (08:25)
[2016-10-07 08:35] LABS: Basophils % 0.4 % (0.0-0.8); Eosinophils # 0.2 10*3/uL (0.0-0.87); Eosinophils % 3.3 % (0.00-10.9); Hematocrit 45.2 VOL% (42.0-52.0); Hemoglobin 15.5 GM/DL (14.0-18.0); Immature Granulocytes % 0.4 %; Immature Granulocytes Absolute 0.02 #; Lymphocytes # 0.9 10*3/uL (1.4-4.0); Lymphocytes % 18.5 % (21.2-54.2); Mean Corpuscular HGB Conc 34.3 GM/DL (32-36); Mean Corpuscular Hemoglobin 30 PG (27-34); Mean Corpuscular Volume 88.6 FL (87-102); Mean Platelet Volume 11.9 FL (9.6-12.0); Monocytes # 0.4 10*3/uL (0.11-0.8); Monocytes % 7.5 % (1.7-12.7); Neutrophils # 3.4 10*3/uL (1.4-7.4); Neutrophils % 69.9 % (38.7-73.9); Platelet Count 149 T/CUMM (130-400); Red Cell Distribution Width 13.5 % (9.3-17.3); White Blood Count 4.9 T/CUMM (4-12)
[2016-10-07] MEDS ORDERED: cefTRIAXone 1,000 MG VIAL ONE (08:37)
[2016-10-07] MEDS ORDERED: methylPREDNISolone SOD SUC 125 MG/2 ML VIAL ONE (08:37)
[2016-10-07] MEDS: ALBUTEROL 2.5 MG/3 ML NEB RESP TX SCH ×3 (08:45→09:23)
[2016-10-07 08:49] LABS: Albumin 4.1 G/DL (3.4-5.0); Bilirubin,Total 0.5 MG/DL (0.2-1.0); Osmolality,Calculated 280.5 MOS/KG (273-304); Potassium 3.6 MMOL/L (3.5-5.1); Total Protein 7.5 G/DL (6.4-8.3); Troponin I Only 0.04 NG/ML (0.00-0.045)
--- NOTE | 2016-10-07 08:53 | XRay Report ---
History: Shortness of breath Date: 10/07/2016 Study: Chest x-ray AP portable Comparison exam: August 18, 2016 The cardiac silhouette is not enlarged. There is no mediastinal mass. The pulmonary vasculature is not engorged. There is no gross pleural effusion. The lungs and pleural spaces are generally clear. There is mild thoracic spondylosis. Impression: No acute cardiopulmonary process. No significant interval change PROCEDURE INTERPRETED AT [facility] DEPARTMENT OF RADIOLOGY Final Report Signed by: Dr. Glory Daniels
[2016-10-07] MEDS ORDERED: IBUPROFEN 600 MG TABLET PO STA (09:21)
[2016-10-07] MEDS ORDERED: IBUPROFEN 600 MG TABLET ONE (09:23)
--- NOTE | 2016-10-07 09:25 | Emergency Department Note ---
Mickey Dasilva Brittany, am scribing for, and in the presence of, Chip Claudio MD 08:16. González Dasilva Doug C, MD, personally performed the services described in this documentation, ascribed by Kimi Arevalo in my presence, and it is both accurate and complete . Arrival - Arrival Chief Complaint: Shortness of Breath Stated Complaint: shortness of breath ED Nursing Triage Note: c/o having SOB since last evening., + coughing and congestion, + chills, states the SOB got worse this am around [id number], patient receiving duo-nebs at time of arrival, denies having pain Mode of Arrival: Stretcher Limitations: No Limitations Source: Patient - History of Present Illness HPI Narrative: Patient is a 61-year-old black male presents emergency room complaining of increasing shortness of breath, productive cough and wheezing that started yesterday. Patient has had a subjective fever and chills associated with this. She does have a history of asthma and COPD and is followed by the [facility] for his medical care. Patient states she still smoking about a half pack cigarettes a day. He is having some pleuritic right-sided chest pain associated with this. He denies hemoptysis. He has no history of any cardiac problems and states is not having any nausea, vomiting or diaphoresis. He denies any neck or shoulder discomfort. States she has frequent bouts with his asthma and states he is taking nebulized bronchodilator treatments at home with no benefit. Onset (ago): hour(s) (Started last night) Consistency: constant Severity: moderate, similar to previous episodes Allergies/Adverse Reactions: Allergies Allergy/AdvReac Type Severity Reaction Status Date / Time lisinopril AdvReac Cough Verified 08/18/16 09:10 Home Medications: Home Medications Medication Instructions Recorded Confirmed Type Albuterol Neb [Proventil Neb] 2.5 mg RESP TX Q6H PRN 02/05/16 10/07/16 History Atorvastatin [Lipitor] 20 mg PO BEDTIME 02/05/16 10/07/16 History Benztropine Mesylate 1 mg PO BEDTIME 02/05/16 10/07/16 History Budesonide/Formoterol 160-4.5 2 puff INH BID PRN 02/05/16 10/07/16 History [Symbicort 160-4.5] Furosemide Tab [Lasix Tab] 20 mg PO BID DIURETIC 02/05/16 10/07/16 History Isosorbide Mononitrate [Isosorbide 60 mg PO BID 02/05/16 10/07/16 History Mononitrate ER] Loratadine 10 mg PO DAILY 02/05/16 10/07/16 History Metoprolol Tartrate Tab [Lopressor 100 mg PO BID 02/05/16 10/07/16 History Tab] Omeprazole [Prilosec] 40 mg PO DAILY 02/05/16 10/07/16 History Potassium Chloride Cap/Tab [K Dur] 20 meq PO BID 02/05/16 10/07/16 History Prazosin HCl 5 mg PO BEDTIME 02/05/16 10/07/16 History Sertraline HCl 100 mg PO DAILY 02/05/16 10/07/16 History Simethicone Chew Tab [Mylicon Chew 80 mg PO DAILY PRN 02/05/16 10/07/16 History Tab] Theophylline ER Tab 300 mg PO DAILY 02/05/16 10/07/16 History amLODIPine [Norvasc] 10 mg PO DAILY 02/05/16 10/07/16 History glipiZIDE [Glipizide] 20 mg PO BID 02/05/16 10/07/16 History HYDROcodone/ACETAMIN 10-325 [[place] 1 tablet PO Q8H 07/22/16 10/07/16 History 10-325] Albuterol Inhaler [Proventil 2 puff INH Q6H PRN #1 inhaler 07/28/16 10/07/16 Rx Inhaler] predniSONE TAB [PredniSONE] 20 mg PO BID #20 tablet 08/18/16 10/07/16 Rx Ipratropium/Albuterol Inhaler 2 puff INH BID 10/07/16 10/07/16 History [Combivent Respimat Inhaler] risperiDONE [Risperidone] 3 mg PO BEDTIME 10/07/16 10/07/16 History Review of System - Review of System 12 point system: reviewed and no additional remarkable complaints except as stated - Review of System Constitutional: Present: chills, fever (Subjective fever ) Respiratory: Present: cough, wheezing Cardiovascular: Present: chest pain, dyspnea on exertion Medical,Surgical,& Family Hx - Medical History Cardio: History of: CHF, Hypertension Psychological: History of: Depression (PTSD) Endocrine: History of: Diabetes Mellitus (NIDDM), Dyslipidemia Respiratory: History of: Asthma, COPD, Obstructive Sleep Apnea Genitourinary: History of: Prostate Problems (prostate cancer), Problems ( urinary incontinence ocassionally) Gastrointestinal: History of: GERD - Surgical History Reproductive Surgeries: Surgical HX of;: Prostate Surgery (prostate removal) - Social History Smoking Status: Smoker, status unknown Frequency of Alcohol Use: Occasionally Type of Drug Use: Cocaine Exam Vital Signs: Vital Signs Temperature 98.4 F 10/07/16 07:52 Pulse Rate 98 H 10/07/16 09:15 Respiratory Rate 26 H 10/07/16 09:15 Blood Pressure 159/108 10/07/16 09:15 O2 Sat by Pulse Oximetry 99 10/07/16 09:15 - General General appearance: alert, in no apparent distress, obese - Head Head exam: Present: atraumatic, normocephalic, normal inspection - Eye Eye exam: Present: normal appearance, PERRL, EOMI. Absent: conjunctival injection, nystagmus, periorbital swelling, periorbital tenderness - ENT ENT exam: Present: normal exam, normal oropharynx, mucous membranes moist - Neck Neck exam: Present: normal inspection, full ROM, trachea midline. Absent: tenderness, meningismus, lymphadenopathy, thyromegaly - Chest Chest inspection: Present: normal inspection, symmetric chest wall rise. Absent : tenderness, rash, abscess - Respiratory Respiratory exam: Present: wheezes (Auditory wheezes). Absent: normal lung sounds bilaterally, rales, respiratory distress, rhonchi, stridor - Cardiovascular Cardiovascular exam: Present: regular rate, normal rhythm, normal heart sounds. Absent: murmur, rubs, gallop, clicks, JVD - Abdominal Exam Abdominal exam: Present: soft, normal bowel sounds. Absent: distention, tenderness, guarding, rebound, rigidity - Rectal Exam Rectal exam: Present: deferred - Extremities Exam Extremities exam: Present: normal inspection, full ROM, normal capillary refill. Absent: tenderness, pedal edema, joint swelling, calf tenderness - Back Exam Back exam: Present: normal inspection, full ROM. Absent: tenderness, muscle spasm, rashes - Neurological Exam Neurological exam: Present: alert, oriented X3, CN II-XII intact. Absent: motor sensory deficit - Psychiatric Psychiatric exam: Present: normal affect, normal mood. Absent: depressed, agitated, anxious, flat affect, manic - Skin Skin exam: Present: warm, dry, intact, normal color. Absent: rash, cyanosis, diaphoresis, erythema, pallor, mottled Course Course Narrative: Patient was given a series of albuterol nebulized bronchodilator treatments. He was also given IV Solu-Medrol. Patient improved with his respiratory rate dropping from 36/min to 26/min and he was able to drift off to sleep. In spite of this improvement he still had prominent expiratory wheezes and felt hospitalization was warranted. I discussed patient with Ravinder who is covering the hospitalist service and he will see the patient in the emergency room and evaluate for admission Results - Labs CBC & BMP: 10/07/16 08:09 10/07/16 08:09 Lab Results: I have reviewed the patients labs Labs: Laboratory Tests 10/07/16 10/07/16 08:09 08:09 WBC 4.9 RBC 5.10 Hgb 15.5 Hct 45.2 MCV 88.6 MCH 30 MCHC 34.3 RDW 13.5 Plt Count 149 MPV 11.9 Neut % (Auto) 69.9 Lymph % (Auto) 18.5 L [place] % (Auto) 7.5 Eos % (Auto) 3.3 Baso % (Auto) 0.4 Neut # (Auto) 3.4 Lymph # (Auto) 0.9 L [place] # (Auto) 0.4 Eos # (Auto) 0.2 Baso # (Auto) 0.0 Immature Gran % 0.4 Nucleated RBC % 0.0 Immature Gran # 0.02 Nucleated RBCs # 0.00 Immature Plt Fraction 0.0 Sodium 139 Potassium 3.6 Chloride 101 Carbon Dioxide 30 Anion Gap 11.6 BUN 11 Creatinine 0.90 GFR Calculation 139 BUN/Creatinine Ratio 12.00 Glucose 193 H Calculated Osmolality 280.5 Calcium 10.0 Total Bilirubin 0.50 AST 43 H ALT 45 Alkaline Phosphatase 92 Troponin I 0.040 Total Protein 7.5 Albumin 4.1 Globulin 3.4 Albumin/Globulin Ratio 1.2 - EKG EKG results: interpreted by ERMD EKG shows: tachycardia (Sinus tachycardia with rate of 109 bpm) - Diagnostic Findings Procedure: Chest x-ray: report reviewed by me (Nothing acute. ) Disposition Clinical Impression: Acute exacerbation of COPD with asthma Case discussed with: patient Disposition: Still a Patient Condition: Guarded Time of Disposition: 09:25
[2016-10-07] MEDS ORDERED: ONDANSETRON 4 MG/2 ML VIAL IV PRN (10:37)
[2016-10-07] MEDS ORDERED: SIMETHICONE CHEW 80 MG TABLET PO PRN (10:37)
[2016-10-07] MEDS ORDERED: ACETAMINOPHEN 325 MG TABLET PO PRN (10:37)
[2016-10-07] MEDS ORDERED: ALBUTEROL 2.5 MG/3 ML NEB RESP TX PRN (10:37)
--- NOTE | 2016-10-07 10:40 | Hospitalist History & Physical ---
Assessment and Plan (1) Acute exacerbation of COPD with asthma Status: Acute Assessment and plan: Admit as inpatient. Treat with IV antibiotics and IV steroids. Duonebs. Restart home meds. Monitor O2 saturations. CXR negative. Current Visit: Yes (2) Hypertension Status: Acute Assessment and plan: Restart home medications. Routine vitals to monitor. Current Visit: Yes (3) Diabetes Status: Acute Assessment and plan: Accuchecks. SSI. Hemoglobin A1c in am. Current Visit: Yes (4) History of prostate cancer Status: Acute Current Visit: No (5) Obstructive sleep apnea Status: Chronic Current Visit: No (6) History of congestive heart failure Status: Chronic Current Visit: No History of Present Illness Chief complaint: Shortness of breath History of present illness: Mr. Fournier is a 61 year old black male with a history of GERD, hypertension, dm , dyslipidemia, depression and anxiety, asthma, COPD, and AURELIO that presented to the ED for complaints of shortness of breath that has worsened since yesterday. Pt. states that he used his inhaler and took about 4 or 5 breathing treatments yesterday without relief. Pt. states this is a chronic issue. Pt. reports he is a smoker. Pt reports a subjective fever and chills but denies night sweats, n/v/ d. Pt. also reported pleuritic right sided chest pain. Pt. denies any other complaints in the ED at this time. [facility] Pt. will be admitted to the hospitalist service for further evaluation and treatment. Home Medications Medication Instructions Recorded Confirmed Type Albuterol Neb [Proventil Neb] 2.5 mg RESP TX Q6H PRN 02/05/16 10/07/16 History Atorvastatin [Lipitor] 20 mg PO BEDTIME 02/05/16 10/07/16 History Benztropine Mesylate 1 mg PO BEDTIME 02/05/16 10/07/16 History Budesonide/Formoterol 160-4.5 2 puff INH BID PRN 02/05/16 10/07/16 History [Symbicort 160-4.5] Furosemide Tab [Lasix Tab] 20 mg PO BID DIURETIC 02/05/16 10/07/16 History Isosorbide Mononitrate [Isosorbide 60 mg PO BID 02/05/16 10/07/16 History Mononitrate ER] Loratadine 10 mg PO DAILY 02/05/16 10/07/16 History Metoprolol Tartrate Tab [Lopressor 100 mg PO BID 02/05/16 10/07/16 History Tab] Omeprazole [Prilosec] 40 mg PO DAILY 02/05/16 10/07/16 History Potassium Chloride Cap/Tab [K Dur] 20 meq PO BID 02/05/16 10/07/16 History Prazosin HCl 5 mg PO BEDTIME 02/05/16 10/07/16 History Sertraline HCl 100 mg PO DAILY 02/05/16 10/07/16 History Simethicone Chew Tab [Mylicon Chew 80 mg PO DAILY PRN 02/05/16 10/07/16 History Tab] Theophylline ER Tab 300 mg PO DAILY 02/05/16 10/07/16 History amLODIPine [Norvasc] 10 mg PO DAILY 02/05/16 10/07/16 History glipiZIDE [Glipizide] 20 mg PO BID 02/05/16 10/07/16 History HYDROcodone/ACETAMIN 10-325 [[place] 1 tablet PO Q8H 07/22/16 10/07/16 History 10-325] Albuterol Inhaler [Proventil 2 puff INH Q6H PRN #1 inhaler 07/28/16 10/07/16 Rx Inhaler] predniSONE TAB [PredniSONE] 20 mg PO BID #20 tablet 08/18/16 10/07/16 Rx Ipratropium/Albuterol Inhaler 2 puff INH BID 10/07/16 10/07/16 History [Combivent Respimat Inhaler] risperiDONE [Risperidone] 3 mg PO BEDTIME 10/07/16 10/07/16 History Allergies Allergy/AdvReac Type Severity Reaction Status Date / Time lisinopril AdvReac Cough Verified 08/18/16 09:10 Medical,Surgical,& Family Hx - Medical History Cardio: History of: CHF, Hypertension Psychological: History of: Depression (PTSD) Endocrine: History of: Diabetes Mellitus (IDDM), Diabetes Mellitus (NIDDM), Dyslipidemia Respiratory: History of: Asthma, COPD, Obstructive Sleep Apnea Genitourinary: History of: Prostate Problems (prostate cancer), Problems ( urinary incontinence ocassionally) Gastrointestinal: History of: GERD - Surgical History Reproductive Surgeries: Surgical HX of;: Prostate Surgery (prostate removal) - Family History Family History: Reports;: Family Heart Disease - Social History Smoking Status: Current every day smoker Frequency of Alcohol Use: Occasionally Type of Drug Use: Cocaine Marital Status: Lives With:: Spouse Functional capacity: independent ambulation - Constitutional Constitutional: Present: chills, fever(s), weakness. Absent: night sweats - EENT Eyes: Present: requires corrective lense Nose, mouth and throat: Absent: epistaxis, headache(s) - Cardiovascular Cardiovascular: Present: chest pain at rest (related to respiratory issue), dyspnea, dyspnea on exertion, edema. Absent: lightheadedness - Respiratory Respiratory: Present: cough, dyspnea, dyspnea on exertion - Gastrointestinal Gastrointestinal: Absent: abdominal pain, nausea, vomiting - Genitourinary Genitourinary: Present: urinary frequency. Absent: difficulty urinating - Neurological Neurological: Absent: confusion, dizziness - Psychiatric Psychiatric: Present: anxiety, depression Exam - Constitutional Vitals: Period Temp Pulse Resp BP Sys/Chua Pulse Ox Last 24 Hr 97.8 F-98.4 F 98-111 18-36 146-159/96-108 94-100 General appearance: no acute distress, over weight - Head Head exam: Present: normal inspection, normocephalic - Eye Eye exam: Present: EOMI. Absent: scleral icterus Pupils: Present: CHIQUITA - Respiratory Respiratory exam: Present: rhonchi. Absent: clear to auscultation bilaterally - Cardiovascular Cardiovascular exam: Present: tachycardia - GI/Abdominal GI/Abdominal exam: Present: normal bowel sounds, soft. Absent: tenderness - Extremities Exam Extremities exam: Present: normal capillary refill, full ROM, edema (trace) - Neurological Exam Neurological exam: Present: alert, oriented X3 - Psychiatric Psychiatric exam: Present: normal affect, normal mood - Skin Skin exam: Present: normal color, warm, dry Results - Labs CBC & BMP: 10/07/16 08:09 10/07/16 08:09 Lab Results: I have reviewed the past 24 hour labs
[2016-10-07] MEDS ORDERED: AZITHROMYCIN INJ 500 MG in SODIUM CHLORIDE 0.9% 250 ML IV SCH (11:30)
[2016-10-07] MEDS: ALBUTEROL/IPRATROPIUM 3 ML NEB RESP TX SCH ×4 (12:04→23:28)
[2016-10-07] MEDS: methylPREDNISolone SOD SUC 40 MG/1 ML VIAL IV SCH ×2 (14:59→20:43)
[2016-10-07] MEDS ORDERED: DEXTROSE 50% 25 GM/50 ML SYRINGE IV PRN (15:24)
[2016-10-07] MEDS ORDERED: GLUCAGON 1 MG VIAL IM PRN (15:24)
[2016-10-07] MEDS: INSULIN REGULAR 100 UNIT/ML SUBCUT SCH ×2 (16:13→22:41)
[2016-10-07] MEDS: FUROSEMIDE 20 MG TABLET PO SCH (16:14)
[2016-10-07] MEDS: NEBIVOLOL 10 MG TABLET PO SCH (16:14)
[2016-10-07] MEDS: NICOTINE 21 MG/24 HR PATCH TRANSDERM SCH (16:15)
[2016-10-07] MEDS ORDERED: METOPROLOL TARTRATE 100 MG TABLET PO SCH (21:00)
[2016-10-07] MEDS: POTASSIUM CHLORIDE 20 MEQ TABLET PO SCH (21:58)
[2016-10-07] MEDS: ISOSORBIDE MONONITRATE 60 MG TABLET PO SCH (21:59)
[2016-10-07] MEDS: ATORVASTATIN 20 MG TABLET PO SCH (21:59)
[2016-10-07] MEDS: BENZTROPINE 1 MG TABLET PO SCH (21:59)
[2016-10-07] MEDS: risperiDONE 1 MG TABLET PO SCH (22:00)
[2016-10-07] MEDS: glipiZIDE 10 MG TABLET PO SCH (22:00)
[2016-10-07] MEDS: PRAZOSIN 1 MG CAPSULE PO SCH (22:01)
[2016-10-07] MEDS: BUDESONIDE/FORMOTEROL 160-4.5 INHALER 6 GM INH SCH (22:07)
[2016-10-08] MEDS: ALBUTEROL/IPRATROPIUM 3 ML NEB RESP TX SCH ×6 (03:02→23:55)
[2016-10-08] MEDS: methylPREDNISolone SOD SUC 40 MG/1 ML VIAL IV SCH ×4 (03:32→20:44)
--- NOTE | 2016-10-08 05:59 | EKG Report ---
Stationary ECG Study [facility] ER Test Date: 10/07/2016 8:06:14 AM Pat Name: HAY GERONIMO Department: Room: 434 Gender: M Software Clerk: : [id number] Requested by: Martir Smith Order Number: [id number] Reading MD: PATRICK LOMELI Intervals [place] Rate: 109 P: 72 SD: 116 QRS: 55 QRSD: 97 T: 18 QT: 356 QTc: 420 Interpretive Statements SINUS TACHYCARDIA WITH SHORT SD INTERVAL Electronically Signed On 10-08-16 07:36:02 CDT by PATRICK LOMELI [email or web address]
[2016-10-08 06:04] LABS: Hematocrit 38.3 VOL% (42.0-52.0); Hemoglobin 13.4 GM/DL (14.0-18.0); Immature Granulocytes % 0.7 %; Immature Granulocytes Absolute 0.05 #; Lymphocytes # 0.6 10*3/uL (1.4-4.0); Lymphocytes % 7.2 % (21.2-54.2); Mean Corpuscular Hemoglobin 31 PG (27-34); Mean Corpuscular Volume 87.2 FL (87-102); Mean Platelet Volume 11.9 FL (9.6-12.0); Monocytes # 0.2 10*3/uL (0.11-0.8); Monocytes % 2.9 % (1.7-12.7); Neutrophils # 6.8 10*3/uL (1.4-7.4); Neutrophils % 89.2 % (38.7-73.9); Platelet Count 143 T/CUMM (130-400); Red Blood Count 4.39 MC/CUMM (3.8-5.5); Red Cell Distribution Width 13.2 % (9.3-17.3); White Blood Count 7.6 T/CUMM (4-12)
[2016-10-08 06:33] LABS: Calcium 9.8 MG/DL (8.5-10.1); Magnesium 1.7 MG/DL (1.8-2.4); Potassium 3.9 MMOL/L (3.5-5.1); Risk Ratio 2.5; Thyroid Stimulating Hormone 0.293 uIU/ml (0.358-3.74); VLDL CHOLESTEROL 9.2 MG/DL
[2016-10-08] MEDS: INSULIN REGULAR 100 UNIT/ML SUBCUT SCH ×4 (08:40→20:43)
[2016-10-08] MEDS ORDERED: THEOPHYLLINE ER 300 MG TABLET PO SCH (09:00)
[2016-10-08] MEDS ORDERED: cefTRIAXone 1,000 MG in SODIUM CHLORIDE 0.9% 100 ML IV SCH (09:00)
[2016-10-08] MEDS: glipiZIDE 10 MG TABLET PO SCH ×2 (09:20→20:44)
[2016-10-08] MEDS: ISOSORBIDE MONONITRATE 60 MG TABLET PO SCH ×2 (09:20→20:44)
[2016-10-08] MEDS: LORATADINE 10 MG TABLET PO SCH (09:21)
[2016-10-08] MEDS: PANTOPRAZOLE 40 MG TABLET PO SCH (09:21)
[2016-10-08] MEDS: amLODIPine 10 MG TABLET PO SCH (09:21)
[2016-10-08] MEDS: NEBIVOLOL 10 MG TABLET PO SCH (09:21)
[2016-10-08] MEDS: FUROSEMIDE 20 MG TABLET PO SCH ×2 (09:21→16:46)
[2016-10-08] MEDS: POTASSIUM CHLORIDE 20 MEQ TABLET PO SCH ×2 (09:21→20:45)
[2016-10-08] MEDS: SERTRALINE 100 MG TABLET PO SCH (09:21)
[2016-10-08] MEDS: BUDESONIDE/FORMOTEROL 160-4.5 INHALER 6 GM INH SCH ×2 (09:26→20:48)
[2016-10-08] MEDS: NICOTINE 21 MG/24 HR PATCH TRANSDERM SCH (09:27)
[2016-10-08] MEDS ORDERED: AMINOPHYLLINE 250 MG in SODIUM CHLORIDE 0.9% 100 ML IV ONE (10:28)
--- NOTE | 2016-10-08 10:37 | Pulmonology Consult Note ---
History of Present Illness Chief complaint: COPD exacerbation, tobacco abuse, acute bronchitis History of present illness: Alberto Brown, [facility], acting as scribe for Dr. Sukhjinder Tapia Mr. Fournier is a 61-year-old -[place] male who we have been asked to see in pulmonary consultation for evaluation and treatment. The request for consultation was made by Dr. Hernandez. Patient is usually followed by the [place]. He presented to [facility] emergency room 10/07/2016 with complaints of increased shortness of breath, productive cough with associated chest congestion, chills, and wheezing. The symptoms reportedly started the day prior to admission. On evaluation in the ER he was felt to have an acute exacerbation of COPD with acute bronchitis. He was admitted for further evaluation and care. Patient has had increasing shortness of breath with productive cough as above. There is no cardiac angina or palpitations. He denies dysphagia but does have reflux and often times it comes up into his throat and wakes him up. There has been no bleeding from any site, specifically no hemoptysis. No change in bowel or bladder habits. No TIA symptoms or syncope. All other systems were reviewed and were negative. 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 Surgical history: Positive for prostatectomy Family history: Heart disease Social history: Patient is unemployed. He is followed by the [place] clinic. He confirms tobacco abuse and states that one pack lasts approximately 2-3 days. He also uses cocaine and states that his last time was approximately 1 week ago. He is . He reports occasionally drinking alcohol. Chest x-ray. Done 10/07/2016. My interpretation. No acute abnormalities. Laboratories: White count 7600 with 89.2% segs, 7.2% lymphs, and 2.9% monos; H& H 13.4/38.3 with normal indices and normal red blood cell distribution with; platelet count 143,000; creatinine has risen from 0.90-1.10, BUN 23, sodium 136 , potassium 3.9, magnesium 1.7 (hypomagnesemia); hemoglobin A1c 7.8; calcium 9.8 , albumin 4.1, total protein 7.5; liver function test within normal limits with the exception of a minimally elevated AST at 43; BNP 194; fasting lipoprotein profile shows a total cholesterol 125, LDL 65, HDL 50, triglycerides 46; TSH is low at 0.293 but free T4 is normal at 0.92; theophylline level is less than 2.0 Microbiology: Blood cultures are negative at day 1 Home Medications Medication Instructions Recorded Confirmed Type Albuterol Neb [Proventil Neb] 2.5 mg RESP TX Q6H PRN 02/05/16 10/07/16 History Atorvastatin [Lipitor] 20 mg PO BEDTIME 02/05/16 10/07/16 History Benztropine Mesylate 1 mg PO BEDTIME 02/05/16 10/07/16 History Budesonide/Formoterol 160-4.5 2 puff INH BID PRN 02/05/16 10/07/16 History [Symbicort 160-4.5] Furosemide Tab [Lasix Tab] 20 mg PO BID DIURETIC 02/05/16 10/07/16 History Isosorbide Mononitrate [Isosorbide 60 mg PO BID 02/05/16 10/07/16 History Mononitrate ER] Loratadine 10 mg PO DAILY 02/05/16 10/07/16 History Metoprolol Tartrate Tab [Lopressor 100 mg PO BID 02/05/16 10/07/16 History Tab] Omeprazole [Prilosec] 40 mg PO DAILY 02/05/16 10/07/16 History Potassium Chloride Cap/Tab [K Dur] 20 meq PO BID 02/05/16 10/07/16 History Prazosin HCl 5 mg PO BEDTIME 02/05/16 10/07/16 History Sertraline HCl 100 mg PO DAILY 02/05/16 10/07/16 History Simethicone Chew Tab [Mylicon Chew 80 mg PO DAILY PRN 02/05/16 10/07/16 History Tab] Theophylline ER Tab 300 mg PO DAILY 02/05/16 10/07/16 History amLODIPine [Norvasc] 10 mg PO DAILY 02/05/16 10/07/16 History glipiZIDE [Glipizide] 20 mg PO BID 02/05/16 10/07/16 History HYDROcodone/ACETAMIN 10-325 [[place] 1 tablet PO Q8H 07/22/16 10/07/16 History 10-325] Albuterol Inhaler [Proventil 2 puff INH Q6H PRN #1 inhaler 07/28/16 10/07/16 Rx Inhaler] predniSONE TAB [PredniSONE] 20 mg PO BID #20 tablet 08/18/16 10/07/16 Rx Ipratropium/Albuterol Inhaler 2 puff INH BID 10/07/16 10/07/16 History [Combivent Respimat Inhaler] risperiDONE [Risperidone] 3 mg PO BEDTIME 10/07/16 10/07/16 History Allergies Allergy/AdvReac Type Severity Reaction Status Date / Time lisinopril AdvReac Cough Verified 08/18/16 09:10 Exam (Pulmonay) H&P - Constitutional Vitals: Period Temp Pulse Resp BP Sys/Chua Pulse Ox Last 24 Hr 97 F-97.9 F 75-102 17-24 118-179/76-112 91-99 Exam: Psych: Oriented x 3 HEENT: Pupils, irises, sclera, conjunctiva, and eyelids are normal. The face is symmetrical without rash or masses. Lips, tongue, buccal mucosa, soft and hard palates, and pharynx are WNL. Neck: Symmetrical. Thyroid was not palpated. Lymphatics: No submandibular, cervical, or supraclavicular adenopathy Chest: Symmetrical and hyperinflated with high-pitched peripheral wheeze, large airway wheeze, and associated large airway congestion CV: Regular without murmur, rub, or gallop Arterial: Carotids with a good upstroke. There is no bruit. Upper extremity pulses are palpable. Lower extremity pulses are palpable. Venous: Exam of the neck, upper, and lower extremities is normal Abd: No appreciable organomegaly, masses, tenderness, or bruit; Bowel sounds are positive 4; The aorta was not palpated /Rectal: Deferred Extremities: No clubbing, cyanosis, edema, or obvious DVT Skin: No cancerous or infectious lesions of the exposed, examined skin; the perineal area was not examined M/S: Age appropriate loss of the normal curvature of the cervical, thoracic, and lumbar spine Neurological: Cranial nerves are intact, Long tract motor function is intact; Sensory exam was not done; gait was not tested. The remainder of the exam was noncontributory. Impression: #1: Acute exacerbation of COPD with both large airway and high-pitched peripheral wheezes #2: Acute bronchitis #3: Cocaine abuse #4: Tobacco abuse #5: History of alcohol abuse #6: Diabetes mellitus. Note, hemoglobin A1c is 7.8%. 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 Previously followed by Dr. Garcia. #8: Hypertension #9: Dyslipidemia #10: Posttraumatic stress disorder #11: COPD/asthma #12: See past history Plan: #1: Sputum for Gram stain, culture and sensitivity #2: Since the patient's theophylline level is less than 2.0, take this and he is not taking this medicine as an outpatient. Given his high-pitched peripheral wheezes, we will start IV Aminophyllin. Will give him 250 mrem over 4 hours and then run at 24 mg/h. Daily theophylline levels. #3: Start albuterol 2 mg every 8 hours #4: Start Singulair 10 mg daily #5: Urine drug screen #6: Agree with present antibiotics #7: See orders We appreciate this consult and will follow along with you. Medical,Surgical,& Family Hx - Medical History Cardio: History of: CHF, Hypertension Psychological: History of: Depression (PTSD) Endocrine: History of: Diabetes Mellitus (IDDM), Diabetes Mellitus (NIDDM), Dyslipidemia Respiratory: History of: Asthma, COPD, Obstructive Sleep Apnea Genitourinary: History of: Prostate Problems (prostate cancer), Problems ( urinary incontinence ocassionally) Gastrointestinal: History of: GERD - Surgical History Reproductive Surgeries: Surgical HX of;: Prostate Surgery (prostate removal) - Family History Family History: Reports;: Family Heart Disease - Social History Smoking Status: Current every day smoker Frequency of Alcohol Use: Occasionally Type of Drug Use: Cocaine Results - Labs CBC & BMP: 10/08/16 05:42 10/08/16 05:42
[2016-10-08] MEDS: MONTELUKAST 10 MG TABLET PO SCH (11:20)
[2016-10-08 13:21] LABS: Barbiturates Screen,Urine Negative (Negative); Benzodiazepines Screen,Urine Negative (Negative); Cannabinoid Screen,Urine Negative (Negative); Opiate Screen,Urine Positive (Negative); Phencyclidine Screen,Urine Negative (Negative)
[2016-10-08 13:25] LABS: Apearance,Urine CLEAR (Clear); Bacteria,Urine Occasional /HPF (Few); Bilirubin,Urine Negative (Negative); Blood, Urine Negative (Negative); Glucose,Urine (UA) >=500 mg/dL (Negative); Hyaline Casts,Urine 13 /LPF (0-3); Ketones,Urine 5 mg/dL (Negative); Mucus,Urine Occasional /LPF (Occasional); Nitrite,Urine Negative (Negative); Protein,Urine Negative; RBC,Urine 1 /HPF (0-4); Squamous Epithelial Cell,Urine Occasional /HPF (0-10); Urine Color Yellow (Yellow); Urine Specific Gravity 1.021 (1.001-1.035); Urine Urobilinogen < 2.0 EU/DL (0.2-1.0); WBC,Urine <1 /HPF (0-6)
[2016-10-08] MEDS: AMINOPHYLLINE 500 MG in SODIUM CHLORIDE 0.9% 480 ML IV SCH (16:34)
[2016-10-08] MEDS: LEVOFLOXACIN INJ 500 MG in PREMIX 1 EACH IV SCH (16:37)
[2016-10-08] MEDS: ALBUTEROL 2 MG TABLET PO SCH ×2 (16:44→21:04)
--- NOTE | 2016-10-08 18:18 | Hospitalist Progress Note ---
Assessment and Plan (1) Acute exacerbation of COPD with asthma Status: Acute Assessment and plan: The patient will continue on present care with IV antibiotics, beta agonist nebulized breathing therapy, and steroids. I will coordinate care with Dr. Jung and continue therapy until patient returns to baseline breathing status whereupon he will be discharged home for outpatient follow-up at the [facility]. Current Visit: Yes (2) Hypertension Status: Acute Current Visit: Yes (3) Diabetes Status: Acute Current Visit: Yes Hospitalist: Subjective Interval history: The patient is admitted to the hospital with COPD exacerbation. The patient is status he has less shortness of breath since being treated in the ER and admitted overnight with further therapy. The patient still has moderate wheezing. Exam - Constitutional Vitals: Period Temp Pulse Resp BP Sys/Chua Pulse Ox Last 24 Hr 97 F-97.7 F 75-97 17-22 118-169/63-109 91-99 Exam: Constitutional System: Mild distress. Mild tremulousness. Head: Normocephalic, atraumatic. Ears, Nose and Throat System: No evidence of Otitis or Mastoiditis. No epistaxis or discharge Eyes System: Pupils equal, round, and reactive. Extraocular muscles intact. Neck: Supple, without adenopathy, No jugular venous distention. No thyromegaly , neck mass, or prior surgery apparent. Respiratory System: Chest moderate air trapping and mild to moderate wheezing to auscultation. Cardiovascular System: Heart with regular rate and rhythm. No murmur. Results - Labs CBC & BMP: 10/08/16 05:42 10/08/16 05:42 Lab Results: I have reviewed the past 24 hour labs
[2016-10-08] MEDS: risperiDONE 1 MG TABLET PO SCH (20:44)
[2016-10-08] MEDS: PRAZOSIN 1 MG CAPSULE PO SCH (20:44)
[2016-10-08] MEDS: BENZTROPINE 1 MG TABLET PO SCH (20:44)
[2016-10-08] MEDS: ATORVASTATIN 20 MG TABLET PO SCH (20:45)
[2016-10-09] MEDS: methylPREDNISolone SOD SUC 40 MG/1 ML VIAL IV SCH ×4 (01:03→22:09)
[2016-10-09] MEDS: ALBUTEROL/IPRATROPIUM 3 ML NEB RESP TX SCH ×6 (03:29→23:46)
[2016-10-09] MEDS: ALBUTEROL 2 MG TABLET PO SCH ×2 (06:04→14:35)
[2016-10-09 06:35] LABS: Hematocrit 37.8 VOL% (42.0-52.0); Immature Granulocytes % 0.7 %; Immature Granulocytes Absolute 0.07 #; Lymphocytes # 0.4 10*3/uL (1.4-4.0); Lymphocytes % 3.7 % (21.2-54.2); Mean Corpuscular HGB Conc 34.4 GM/DL (32-36); Mean Corpuscular Hemoglobin 31 PG (27-34); Mean Corpuscular Volume 88.9 FL (87-102); Mean Platelet Volume 12.8 FL (9.6-12.0); Monocytes # 0.2 10*3/uL (0.11-0.8); Monocytes % 2.2 % (1.7-12.7); Neutrophils % 93.4 % (38.7-73.9); Platelet Count 150 T/CUMM (130-400); Red Blood Count 4.25 MC/CUMM (3.8-5.5); Red Cell Distribution Width 13.7 % (9.3-17.3); White Blood Count 10.7 T/CUMM (4-12)
[2016-10-09 07:03] LABS: Calcium 9.8 MG/DL (8.5-10.1); Osmolality,Calculated 287.1 MOS/KG (273-304); Potassium 4.2 MMOL/L (3.5-5.1)
[2016-10-09 07:05] LABS: Lymphocytes 1 % (20-55); Segmented Neutrophils 97 % (50-85); Total Cells Counted 100
[2016-10-09 07:06] LABS: Hypochromasia Slight
[2016-10-09] MEDS: INSULIN REGULAR 100 UNIT/ML SUBCUT SCH ×4 (07:30→22:09)
[2016-10-09] MEDS: ISOSORBIDE MONONITRATE 60 MG TABLET PO SCH ×2 (08:19→22:14)
[2016-10-09] MEDS: glipiZIDE 10 MG TABLET PO SCH ×2 (08:19→22:08)
[2016-10-09] MEDS: amLODIPine 10 MG TABLET PO SCH (08:19)
[2016-10-09] MEDS: LORATADINE 10 MG TABLET PO SCH (08:20)
[2016-10-09] MEDS: NEBIVOLOL 10 MG TABLET PO SCH (08:20)
[2016-10-09] MEDS: POTASSIUM CHLORIDE 20 MEQ TABLET PO SCH ×2 (08:20→22:08)
[2016-10-09] MEDS: MONTELUKAST 10 MG TABLET PO SCH (08:20)
[2016-10-09] MEDS: PANTOPRAZOLE 40 MG TABLET PO SCH (08:20)
[2016-10-09] MEDS: SERTRALINE 100 MG TABLET PO SCH (08:20)
[2016-10-09] MEDS: NICOTINE 21 MG/24 HR PATCH TRANSDERM SCH (08:23)
[2016-10-09] MEDS: FUROSEMIDE 20 MG TABLET PO SCH ×2 (08:30→17:56)
--- NOTE | 2016-10-09 10:33 | Pulmonology Progress Note ---
Pulmonary - PN: Subj Interval history: This is a 61-year-old black male whom I saw in consultation on 10/08/2016. My impressions were. #1: Acute exacerbation of COPD with both large airway and high-pitched peripheral wheezes #2: Acute bronchitis #3: Cocaine abuse #4: Tobacco abuse #5: History of alcohol abuse #6: Diabetes mellitus. Note, hemoglobin A1c is 7.8%. 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 Previously followed by Dr. Garcia. #8: Hypertension #9: Dyslipidemia #10: Posttraumatic stress disorder #11: COPD/asthma #12: See past history 10/09/2016. Drug screen was done yesterday. Patient was positive for opiates and cocaine. CBC is stable. Sodium is 135. Potassium 4.2. Creatinine is increased to 1.3 with a BUN of 30. On chest exam the patient is moving air much better. He however denies any improvement. Patient came in on theophylline. His level was nonexistent. I gave him IV Aminophyllin yesterday and ran it at a rate of 22 mg/h and this morning his theophylline level was therapeutic. I will convert his IV theophylline to theophylline by mouth 300 mg twice a day. Physical exam. Vital signs. See below Psychiatric. Probably oriented 3 Neurologic. Cranial nerves are intact with decreased hearing acuity. Moves all 4 extremities. Sensory exam was not done in gait was not tested. Face. Symmetrical. No edema of the lips or tongue. Neck. Symmetrical. No mass. No meningismus. Lymphatics. No cysts submandibular cervical supraclavicular or epitrochlear adenopathy Chest. Symmetrical slightly kyphotic with hyperinflation and prolonged incomplete wheeze. Moderate large airway wheeze with associated congestion. High-pitched peripheral wheezes it persists beyond the end of expiration. Heart. No gallop Abdomen. Nondistended. Positive bowel sounds Extremities. Nothing to suggest deep venous thrombophlebitis The remainder the physical exam is negative Plan: 10/08/2006 #1: Sputum for Gram stain, culture and sensitivity #2: Since the patient's theophylline level is less than 2.0, take this and he is not taking this medicine as an outpatient. Given his high-pitched peripheral wheezes, we will start IV Aminophyllin. Will give him 250 mrem over 4 hours and then run at 24 mg/h. Daily theophylline levels. #3: Start albuterol 2 mg every 8 hours #4: Start Singulair 10 mg daily #5: Urine drug screen #6: Agree with present antibiotics #7: See orders 10/09/2016 1. See today's note above. 2. Change IV Aminophyllin to theophylline 300 p.o. twice daily 3. Continue present regimen 4. Note positive drug screen Medical,Surgical,& Family Hx - Medical History Exam (Progress Note) - Constitutional Vitals: Period Temp Pulse Resp BP Sys/Chua Pulse Ox Last 24 Hr 97 F-98.2 F 77-104 16-22 113-149/60-83 91-100 Results - Labs CBC & BMP: 10/09/16 05:26 10/09/16 05:26
[2016-10-09] MEDS: BUDESONIDE/FORMOTEROL 160-4.5 INHALER 6 GM INH SCH ×2 (12:40→23:30)
[2016-10-09] MEDS: AMINOPHYLLINE 500 MG in SODIUM CHLORIDE 0.9% 480 ML IV SCH (14:06)
--- NOTE | 2016-10-09 15:16 | Hospitalist Progress Note ---
Assessment and Plan (1) Acute exacerbation of COPD with asthma Status: Acute Assessment and plan: The patient will continue on present care with IV antibiotics, beta agonist nebulized breathing therapy, and steroids. The patient will continue on present care and today we change the Aminophyllin drip to oral theophylline. We will reassess tomorrow and begin discharge planning. Current Visit: Yes (2) Hypertension Status: Acute Current Visit: Yes (3) Diabetes Status: Acute Current Visit: Yes Hospitalist: Subjective Interval history: The patient has less shortness of breath today. He is moving air better and has fewer wheezes today. The patient is discussing outpatient drug rehab through the [facility] and perhaps to do it at [place]. Exam - Constitutional Vitals: Period Temp Pulse Resp BP Sys/Chua Pulse Ox Last 24 Hr 97.5 F-98.2 F 77-104 16-22 113-149/60-83 91-100 Exam: Constitutional System: Mild distress. Mild tremulousness. Head: Normocephalic, atraumatic. Ears, Nose and Throat System: No evidence of Otitis or Mastoiditis. No epistaxis or discharge Eyes System: Pupils equal, round, and reactive. Extraocular muscles intact. Neck: Supple, without adenopathy, No jugular venous distention. No thyromegaly , neck mass, or prior surgery apparent. Respiratory System: Chest moderate air trapping and mild wheezing to auscultation. Cardiovascular System: Heart with regular rate and rhythm. No murmur. Results - Labs CBC & BMP: 10/09/16 05:26 10/09/16 05:26 Lab Results: I have reviewed the past 24 hour labs Specialty Discharge - Follow Up or Referrals
[2016-10-09] MEDS: LEVOFLOXACIN INJ 500 MG in PREMIX 1 EACH IV SCH (17:52)
[2016-10-09] MEDS: THEOPHYLLINE ER 300 MG TABLET PO SCH (18:00)
[2016-10-09] MEDS: risperiDONE 1 MG TABLET PO SCH (22:08)
[2016-10-09] MEDS: PRAZOSIN 1 MG CAPSULE PO SCH (22:08)
[2016-10-09] MEDS: BENZTROPINE 1 MG TABLET PO SCH (22:09)
[2016-10-09] MEDS: ATORVASTATIN 20 MG TABLET PO SCH (22:09)
[2016-10-10] MEDS: ALBUTEROL 2 MG TABLET PO SCH ×4 (00:15→21:32)
[2016-10-10] MEDS: ALBUTEROL/IPRATROPIUM 3 ML NEB RESP TX SCH ×6 (03:48→23:16)
[2016-10-10] MEDS: methylPREDNISolone SOD SUC 40 MG/1 ML VIAL IV SCH ×4 (04:35→21:17)
[2016-10-10] MEDS: INSULIN REGULAR 100 UNIT/ML SUBCUT SCH ×4 (07:59→21:32)
[2016-10-10] MEDS: glipiZIDE 10 MG TABLET PO SCH ×2 (09:36→21:19)
[2016-10-10] MEDS: amLODIPine 10 MG TABLET PO SCH (09:36)
[2016-10-10] MEDS: ISOSORBIDE MONONITRATE 60 MG TABLET PO SCH ×2 (09:37→21:32)
[2016-10-10] MEDS: NEBIVOLOL 10 MG TABLET PO SCH (09:37)
[2016-10-10] MEDS: LORATADINE 10 MG TABLET PO SCH (09:37)
[2016-10-10] MEDS: PANTOPRAZOLE 40 MG TABLET PO SCH (09:37)
[2016-10-10] MEDS: MONTELUKAST 10 MG TABLET PO SCH (09:38)
[2016-10-10] MEDS: SERTRALINE 100 MG TABLET PO SCH (09:38)
[2016-10-10] MEDS: POTASSIUM CHLORIDE 20 MEQ TABLET PO SCH ×2 (09:38→21:18)
[2016-10-10] MEDS: NICOTINE 21 MG/24 HR PATCH TRANSDERM SCH (09:40)
[2016-10-10] MEDS: THEOPHYLLINE ER 300 MG TABLET PO SCH ×2 (10:02→16:52)
[2016-10-10] MEDS: FUROSEMIDE 20 MG TABLET PO SCH ×2 (10:02→15:23)
[2016-10-10] MEDS: BUDESONIDE/FORMOTEROL 160-4.5 INHALER 6 GM INH SCH ×2 (10:03→21:17)
--- NOTE | 2016-10-10 10:54 | Pulmonology Progress Note ---
Pulmonary - PN: Subj Interval history: Alberto Brown, [facility] acting as scribe for Dr. Sukhjinder Tapia This is a 61-year-old black male who we saw in initial pulmonary consultation on 10/08/2016. At that time, our impressions were: #1: Acute exacerbation of COPD with both large airway and high-pitched peripheral wheezes #2: Acute bronchitis #3: Cocaine abuse #4: Tobacco abuse #5: History of alcohol abuse #6: Diabetes mellitus. Note, hemoglobin A1c is 7.8%. 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 Previously followed by Dr. Garcia. #8: Hypertension #9: Dyslipidemia #10: Posttraumatic stress disorder #11: COPD/asthma #12: See past history 10/09/2016. Drug screen was done yesterday. Patient was positive for opiates and cocaine. CBC is stable. Sodium is 135. Potassium 4.2. Creatinine is increased to 1.3 with a BUN of 30. On chest exam the patient is moving air much better. He however denies any improvement. Patient came in on theophylline. His level was nonexistent. I gave him IV Aminophyllin yesterday and ran it at a rate of 22 mg/h and this morning his theophylline level was therapeutic. I will convert his IV theophylline to theophylline by mouth 300 mg twice a day. 10/10/2016. The patient was seen today along with his nurse. He was sitting up in the bedside chair. He states that his breathing is much improved. On chest exam, he continues to have large airway congestion with increased high-pitched peripheral wheezes. Yesterday he was converted to oral theophylline and theophylline level today is 8.6. We have instructed that he needs to continue to mobilize his secretions. Today we started Mucinex 600 mg twice daily. He needs to be up and ambulatory. Sputum has grown Serratia marcescens. Levaquin which she is on has an TG of less than 2. Sputum is also growing a yeast. Blood cultures are growing no organisms. We have ordered a repeat chest x-ray and BMP/magnesium tomorrow. Medications have been reviewed. Mucinex was added today. Labs were reviewed. Theophylline level is 8.6. Exam (Progress Note) - Constitutional Vitals: Period Temp Pulse Resp BP Sys/Chua Pulse Ox Last 24 Hr 97.0 F-98.4 F 80-106 18-24 132-169/78-90 92-99 Exam: Chest... See above Heart no gallop Abdomen is nontender and nondistended; bowel sounds are positive 4 Extremities with nothing to suggest acute deep venous arthritis Psychiatric oriented 3 Neurologic long-term motor function is intact Plan: Start Mucinex 600 mg p.o. twice daily. Continue present treatment. Repeat chest x-ray, BMP and magnesium in the morning. See orders. Results - Labs CBC & BMP: 10/09/16 05:26 10/09/16 05:26 Specialty Discharge - Follow Up or Referrals
--- NOTE | 2016-10-10 11:36 | Hospitalist Progress Note ---
Assessment and Plan (1) Acute exacerbation of COPD with asthma Status: Acute Assessment and plan: The patient will continue on present care with IV antibiotics, beta agonist nebulized breathing therapy, and steroids. The patient will start Rocephin in addition to the Levaquin. We are continuing steroid. The patient is on theophylline oral medication and Mucinex is added. Will recheck electrolytes tomorrow. Current Visit: Yes (2) Hypertension Status: Acute Current Visit: Yes (3) Diabetes Status: Acute Current Visit: Yes Hospitalist: Subjective Interval history: The patient is improving slowly. Sputum cultures now revealed Serratia. I reviewed Dr. Jung's recommendations and am continuing per his plan. Exam - Constitutional Vitals: Period Temp Pulse Resp BP Sys/Chua Pulse Ox Last 24 Hr 97.0 F-98.4 F 80-106 18-24 132-169/78-90 92-99 Exam: Constitutional System: Mild distress. Mild tremulousness. Head: Normocephalic, atraumatic. Ears, Nose and Throat System: No evidence of Otitis or Mastoiditis. No epistaxis or discharge Eyes System: Pupils equal, round, and reactive. Extraocular muscles intact. Neck: Supple, without adenopathy, No jugular venous distention. No thyromegaly , neck mass, or prior surgery apparent. Respiratory System: Chest moderate air trapping and mild wheezing to auscultation. Cardiovascular System: Heart with regular rate and rhythm. No murmur. Results - Labs CBC & BMP: 10/09/16 05:26 10/09/16 05:26 Lab Results: I have reviewed the past 24 hour labs Labs: Sputum culture revealed Serratia marcescens sensitive to Levaquin and Rocephin. Specialty Discharge - Follow Up or Referrals
[2016-10-10] MEDS: cefTRIAXone 1,000 MG in SODIUM CHLORIDE 0.9% 100 ML IV SCH (12:03)
[2016-10-10] MEDS: LEVOFLOXACIN INJ 500 MG in PREMIX 1 EACH IV SCH (15:24)
[2016-10-10] MEDS: BENZTROPINE 1 MG TABLET PO SCH (21:18)
[2016-10-10] MEDS: PRAZOSIN 1 MG CAPSULE PO SCH (21:18)
[2016-10-10] MEDS: risperiDONE 1 MG TABLET PO SCH (21:18)
[2016-10-10] MEDS: ATORVASTATIN 20 MG TABLET PO SCH (21:19)
[2016-10-11] MEDS: ALBUTEROL/IPRATROPIUM 3 ML NEB RESP TX SCH ×5 (03:12→19:52)
[2016-10-11] MEDS: methylPREDNISolone SOD SUC 40 MG/1 ML VIAL IV SCH ×4 (04:00→20:47)
[2016-10-11] MEDS: ALBUTEROL 2 MG TABLET PO SCH ×3 (05:56→22:32)
[2016-10-11 06:26] LABS: Calcium 10.3 MG/DL (8.5-10.1); Magnesium 2.2 MG/DL (1.8-2.4); Osmolality,Calculated 282.1 MOS/KG (273-304); Potassium 4.4 MMOL/L (3.5-5.1)
--- NOTE | 2016-10-11 08:05 | XRay Report ---
Exam: XR chest 2V Indication: COPD Comparison study: 10/07/2016 Findings: The heart, mediastinum and bony structures are stable from prior. Cardiac silhouette is mildly enlarged. Mild tortuosity of the descending thoracic aorta similar to prior. There has been development of minimal patchy right basilar airspace opacities and blunting of costophrenic angle. Diffuse mild interstitial prominence likely representing underlying scarring changes is essentially stable from prior. There is no pneumothorax. Impression: Development of minimal right basilar opacities may represent atelectasis or developing infectious/inflammatory infiltrate and trace pleural fluid. Mild chronic interstitial scarring changes otherwise appear unchanged. PROCEDURE INTERPRETED AT [facility] DEPARTMENT OF RADIOLOGY Final Report Signed by: Ryan Heller
[2016-10-11] MEDS: THEOPHYLLINE ER 300 MG TABLET PO SCH ×2 (08:11→17:01)
[2016-10-11] MEDS: INSULIN REGULAR 100 UNIT/ML SUBCUT SCH ×4 (08:11→22:32)
[2016-10-11] MEDS: glipiZIDE 10 MG TABLET PO SCH ×2 (09:19→20:46)
[2016-10-11] MEDS: PANTOPRAZOLE 40 MG TABLET PO SCH (09:20)
[2016-10-11] MEDS: NEBIVOLOL 10 MG TABLET PO SCH (09:20)
[2016-10-11] MEDS: ISOSORBIDE MONONITRATE 60 MG TABLET PO SCH ×2 (09:20→20:47)
[2016-10-11] MEDS: MONTELUKAST 10 MG TABLET PO SCH (09:20)
[2016-10-11] MEDS: POTASSIUM CHLORIDE 20 MEQ TABLET PO SCH ×2 (09:20→20:47)
[2016-10-11] MEDS: SERTRALINE 100 MG TABLET PO SCH (09:20)
[2016-10-11] MEDS: amLODIPine 10 MG TABLET PO SCH (09:20)
[2016-10-11] MEDS: LORATADINE 10 MG TABLET PO SCH (09:20)
[2016-10-11] MEDS: NICOTINE 21 MG/24 HR PATCH TRANSDERM SCH (09:21)
[2016-10-11] MEDS: FUROSEMIDE 20 MG TABLET PO SCH ×2 (09:21→15:33)
[2016-10-11] MEDS: BUDESONIDE/FORMOTEROL 160-4.5 INHALER 6 GM INH SCH ×2 (09:26→20:48)
--- NOTE | 2016-10-11 10:57 | Pulmonology Progress Note ---
Pulmonary - PN: Subj Interval history: Alberto Brown, [facility] acting as scribe for Dr. Sukhjinder Tapia This is a 61-year-old black male who we saw in initial pulmonary consultation on 10/08/2016. At that time, our impressions were: #1: Acute exacerbation of COPD with both large airway and high-pitched peripheral wheezes #2: Acute bronchitis #3: Cocaine abuse #4: Tobacco abuse #5: History of alcohol abuse #6: Diabetes mellitus. Note, hemoglobin A1c is 7.8%. 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 Previously followed by Dr. Garcia. #8: Hypertension #9: Dyslipidemia #10: Posttraumatic stress disorder #11: COPD/asthma #12: See past history 10/09/2016. Drug screen was done yesterday. Patient was positive for opiates and cocaine. CBC is stable. Sodium is 135. Potassium 4.2. Creatinine is increased to 1.3 with a BUN of 30. On chest exam the patient is moving air much better. He however denies any improvement. Patient came in on theophylline. His level was nonexistent. I gave him IV Aminophyllin yesterday and ran it at a rate of 22 mg/h and this morning his theophylline level was therapeutic. I will convert his IV theophylline to theophylline by mouth 300 mg twice a day. 10/10/2016. The patient was seen today along with his nurse. He was sitting up in the bedside chair. He states that his breathing is much improved. On chest exam, he continues to have large airway congestion with increased high-pitched peripheral wheezes. Yesterday he was converted to oral theophylline and theophylline level today is 8.6. We have instructed that he needs to continue to mobilize his secretions. Today we started Mucinex 600 mg twice daily. He needs to be up and ambulatory. Sputum has grown Serratia marcescens. Levaquin which she is on has an TG of less than 2. Sputum is also growing a yeast. Blood cultures are growing no organisms. We have ordered a repeat chest x-ray and BMP/magnesium tomorrow. Medications have been reviewed. Mucinex was added today. Labs were reviewed. Theophylline level is 8.6. 10/11/2016. Patient is better mobilizing his secretions today. He continues to have a good bit of loose large airway secretions that he needs to expectorate, however. Chest x-ray today shows a right lower lobe infiltrate. This was certainly present at admission but only became prevalent with rehydration. This is not a hospital-acquired infiltrate. Again, sputum has grown Serratia marcescens. Therefore, his infiltrate secondary to Serratia marcescens. He is on Levaquin which has not TG of less than 2. He can be discharged home on another 5-7 days of Levaquin. He is followed at the [place] and should follow-up there upon discharge. At discharge, we recommend prednisone 10 mg daily for 10 days then 10 mg every other day for 10 doses. Medications have been reviewed. We made no changes today. Labs been reviewed. Creatinine 1.20, BUN 22, sodium 135, potassium 4.4, magnesium 2.2, theophylline 10.3 Exam (Progress Note) - Constitutional Vitals: Period Temp Pulse Resp BP Sys/Chua Pulse Ox Last 24 Hr 97.5 F-98.2 F 78-96 16-22 130-169/78-90 90-99 Exam: Chest... See above Heart no gallop Abdomen is nontender and nondistended; bowel sounds are positive 4 Extremities with nothing to suggest acute deep venous arthritis Psychiatric oriented 3 Neurologic long-term motor function is intact Plan: Continue present treatment while inpatient. At discharge, we recommend prednisone 10 mg daily for 10 days then 10 mg every other day for 10 doses, Levaquin 500 mg daily for another 5-7 days, and continue Singulair, Symbicort, and theophylline as he is currently taking. He will need follow-up with the [place] physicians. Certainly, he needs to abstain from all drug use as previously discussed at length with this patient. We will sign off. Please reconsult as needed. Results - Labs CBC & BMP: 10/09/16 05:26 10/11/16 04:57 Specialty Discharge - Follow Up or Referrals
--- NOTE | 2016-10-11 11:35 | Hospitalist Progress Note ---
Assessment and Plan (1) Acute exacerbation of COPD with asthma Status: Acute Assessment and plan: The patient will continue on present care with IV antibiotics, beta agonist nebulized breathing therapy, and steroids. The patient will start Rocephin in addition to the Levaquin. I reduced his Solu-Medrol to 40 mg twice daily today. I anticipate discharge home tomorrow. Current Visit: Yes (2) Hypertension Status: Acute Current Visit: Yes (3) Diabetes Status: Acute Current Visit: Yes Hospitalist: Subjective Interval history: The patient has Serratia pneumonia. He continues on Levaquin and Rocephin. I anticipate discharge home tomorrow. The patient will follow up at the [place] Exam - Constitutional Vitals: Period Temp Pulse Resp BP Sys/Chua Pulse Ox Last 24 Hr 97.5 F-98.2 F 78-96 16-22 130-169/78-90 90-99 Exam: Constitutional System: Mild distress. Mild tremulousness. Head: Normocephalic, atraumatic. Ears, Nose and Throat System: No evidence of Otitis or Mastoiditis. No epistaxis or discharge Eyes System: Pupils equal, round, and reactive. Extraocular muscles intact. Neck: Supple, without adenopathy, No jugular venous distention. No thyromegaly , neck mass, or prior surgery apparent. Respiratory System: Chest moderate air trapping and mild wheezing to auscultation. Cardiovascular System: Heart with regular rate and rhythm. No murmur. Results - Labs CBC & BMP: 10/09/16 05:26 10/11/16 04:57 Lab Results: I have reviewed the past 24 hour labs Specialty Discharge - Follow Up or Referrals
[2016-10-11] MEDS: cefTRIAXone 1,000 MG in SODIUM CHLORIDE 0.9% 100 ML IV SCH (12:42)
[2016-10-11] MEDS: LEVOFLOXACIN INJ 500 MG in PREMIX 1 EACH IV SCH (15:27)
[2016-10-11] MEDS: PRAZOSIN 1 MG CAPSULE PO SCH (20:46)
[2016-10-11] MEDS: risperiDONE 1 MG TABLET PO SCH (20:46)
[2016-10-11] MEDS: BENZTROPINE 1 MG TABLET PO SCH (20:47)
[2016-10-11] MEDS: ATORVASTATIN 20 MG TABLET PO SCH (20:47)
[2016-10-12] MEDS: ALBUTEROL/IPRATROPIUM 3 ML NEB RESP TX SCH ×4 (00:55→10:46)
[2016-10-12] MEDS: ALBUTEROL 2 MG TABLET PO SCH (06:17)
[2016-10-12] MEDS: THEOPHYLLINE ER 300 MG TABLET PO SCH (08:00)
[2016-10-12] MEDS: FUROSEMIDE 20 MG TABLET PO SCH (08:00)
[2016-10-12] MEDS: INSULIN REGULAR 100 UNIT/ML SUBCUT SCH ×2 (08:24→12:32)
[2016-10-12] MEDS: NEBIVOLOL 10 MG TABLET PO SCH (09:56)
[2016-10-12] MEDS: glipiZIDE 10 MG TABLET PO SCH (09:56)
[2016-10-12] MEDS: amLODIPine 10 MG TABLET PO SCH (09:56)
[2016-10-12] MEDS: POTASSIUM CHLORIDE 20 MEQ TABLET PO SCH (09:56)
[2016-10-12] MEDS: MONTELUKAST 10 MG TABLET PO SCH (09:56)
[2016-10-12] MEDS: LORATADINE 10 MG TABLET PO SCH (09:56)
[2016-10-12] MEDS: ISOSORBIDE MONONITRATE 60 MG TABLET PO SCH (09:56)
[2016-10-12] MEDS: NICOTINE 21 MG/24 HR PATCH TRANSDERM SCH (09:57)
[2016-10-12] MEDS: PANTOPRAZOLE 40 MG TABLET PO SCH (09:57)
[2016-10-12] MEDS: SERTRALINE 100 MG TABLET PO SCH (09:57)
[2016-10-12] MEDS: methylPREDNISolone SOD SUC 40 MG/1 ML VIAL IV SCH (09:57)
[2016-10-12] MEDS: BUDESONIDE/FORMOTEROL 160-4.5 INHALER 6 GM INH SCH (10:03)
--- NOTE | 2016-10-12 10:34 | Discharge Summary ---
Hospital Course - Hospital Course Hospital Course: The patient was admitted to the hospital with COPD and exacerbation. The patient's sputum grew Serratia and he was treated for pneumonia. The patient's shortness of breath improved over 5 days. Of time and is now ready for discharge home and follow-up at the [place] [facility]. The patient has been an active smoker and was given 4 minutes tobacco cessation education. On the date of discharge the patient's examination reveals mild air trapping and no wheezing. The patient has his own medical decision maker and wishes to be full code. The patient's medications were reconciled on admission and again upon discharge. Discharge time was 34 minutes. - Time spent with patient Time with patient DS: Greater than 30 minutes Diagnosis - Discharge Diagnosis (1) Acute exacerbation of COPD with asthma Status: Resolved (2) Hypertension Status: Chronic (3) Diabetes Status: Chronic Specialty Discharge - Follow Up or Referrals Discharge Plan - Discharge Data Disposition: Disch To Home/Self Care Condition at Discharge: Stable Discharge Diet: diabetic diet Activity: resume usual activities as tolerated - Discharge Medications New Theophylline ER Tab 300 mg PO BID W/MEALS #100 tablet Ciprofloxacin Tab [Cipro Tab] 500 mg PO BID #14 tablet Continue Potassium Chloride Cap/Tab [K Dur] 20 meq PO BID amLODIPine [Norvasc] 10 mg PO DAILY Albuterol Neb [Proventil Neb] 2.5 mg RESP TX Q6H PRN PRN Reason: Shortness Of Breath/Wheezing Atorvastatin [Lipitor] 20 mg PO BEDTIME Budesonide/Formoterol 160-4.5 [Symbicort 160-4.5] 2 puff INH BID PRN PRN Reason: Shortness Of Breath Isosorbide Mononitrate [Isosorbide Mononitrate ER] 60 mg PO BID glipiZIDE [Glipizide] 20 mg PO BID Omeprazole [Prilosec] 40 mg PO DAILY Prazosin HCl 5 mg PO BEDTIME Metoprolol Tartrate Tab [Lopressor Tab] 100 mg PO BID Sertraline HCl 100 mg PO DAILY Benztropine Mesylate 1 mg PO BEDTIME Simethicone Chew Tab [Mylicon Chew Tab] 80 mg PO DAILY PRN PRN Reason: Gas Loratadine 10 mg PO DAILY Furosemide Tab [Lasix Tab] 20 mg PO BID DIURETIC HYDROcodone/ACETAMIN 10-325 [[place] 10-325] 1 tablet PO Q8H risperiDONE [Risperidone] 3 mg PO BEDTIME Albuterol Inhaler [Proventil Inhaler] 2 puff INH Q6H PRN #1 inhaler PRN Reason: Shortness Of Breath/Wheezing predniSONE TAB [PredniSONE] 20 mg PO BID #20 tablet Ipratropium/Albuterol Inhaler [Combivent Respimat Inhaler] 2 puff INH BID Discontinued Theophylline ER Tab 300 mg PO DAILY - Follow Up or Referral [facility] We[facility] - Forms/Instructions Instructions: How to Stop Smoking (GEN), Cigarette Smoking and Your Health (GEN ), Chronic Obstructive Pulmonary Disease (GEN), COPD Exacerbation, 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) Exam - Constitutional Vitals: Period Temp Pulse Resp BP Sys/Chua Pulse Ox Last 24 Hr 96.2 F-98.3 F 73-96 15-20 139-162/76-94 90-98 Discharge Results Procedures and tests throughout hospitalization: Pending Orders 10/08/16 11:00 Sputum Culture and Gram Stain Routine Labs on day of discharge: Labs from last 24 hours 10/12/16 10/12/16 10/11/16 07:54 05:03 21:43 POC Glucose 240 H 287 H Theophylline 9.9 L 10/11/16 10/11/16 10/11/16 16:07 15:45 12:02 POC Glucose 297 H 273 H 297 H Theophylline Preliminary micro results at discharge 10/08/16 11:00 Sputum Culture - Preliminary Sputum Serratia marcescens Yeast DS: Provider Date of admission: 10/07/16 09:25 Primary care physician: . No PCP Attending physician on admission: Chris Pacheco MD Consults: 10/07/16 10:37 Consult to Pulmonary Rehabilitation [CONS] Routine Reason for Pulmonary Rehabilitation: COPD 10/07/16 11:01 Consult to Dietitian [CONS] Routine Reason for Dietitian: Other Consult Comment: admission assessment 10/08/16 08:10 Consult to Physician [CONS] Routine Comment: COPD Consulting Provider: Sukhjinder Tapia Consulting Provider Notified: Yes When should Consulting Provider be notified: Now Consult to Specialist Group: Pulmonology When should Consulting Provider be notified: Now Person Notified: MONTEZ Date Notified: 10/08/16 Time Notified: 08:48 Discharging clinician: Aries Hernandez MD
[2016-10-12 12:16] VITALS: BP 171/76
[2016-10-12] MEDS: cefTRIAXone 1,000 MG in SODIUM CHLORIDE 0.9% 100 ML IV SCH (14:19)
== END 2016-10-12 12:30 | disposition home or self-care (01) | DRG 190 ==
LOC: EDUNIT# → EDBD → N.ED 07:51 → N.EDINP 09:25 → SUATTDRO 09:25 → N.EDINP 10:08 → N.4E 10:16
PROVIDERS: ADMIT Hospitalist; ATTEND Internal Medicine

== ENCOUNTER 2016-11-03 03:34 | Inpatient (IN) ==
[2016-11-03] MEDS ORDERED: methylPREDNISolone SOD SUC 125 MG/2 ML VIAL ONE (03:38)
[2016-11-03] MEDS ORDERED: ALBUTEROL/IPRATROPIUM 3 ML NEB RESP TX STA ×3 (03:51→03:54)
[2016-11-03] MEDS ORDERED: methylPREDNISolone SOD SUC 125 MG/2 ML VIAL IV STA (03:51)
[2016-11-03 03:57] LABS: Basophils % 0.3 % (0.0-0.8); Eosinophils # 0.4 10*3/uL (0.0-0.87); Eosinophils % 5.1 % (0.00-10.9); Hematocrit 42.9 VOL% (42.0-52.0); Hemoglobin 14.7 GM/DL (14.0-18.0); Immature Granulocytes % 0.3 %; Immature Granulocytes Absolute 0.02 #; Lymphocytes # 3.4 10*3/uL (1.4-4.0); Lymphocytes % 42.7 % (21.2-54.2); Mean Corpuscular HGB Conc 34.3 GM/DL (32-36); Mean Corpuscular Hemoglobin 30 PG (27-34); Mean Corpuscular Volume 88.1 FL (87-102); Mean Platelet Volume 11.8 FL (9.6-12.0); Monocytes # 0.7 10*3/uL (0.11-0.8); Monocytes % 8.4 % (1.7-12.7); Neutrophils # 3.5 10*3/uL (1.4-7.4); Neutrophils % 43.2 % (38.7-73.9); Platelet Count 181 T/CUMM (130-400); Red Blood Count 4.87 MC/CUMM (3.8-5.5); Red Cell Distribution Width 13.2 % (9.3-17.3)
--- NOTE | 2016-11-03 03:57 | Emergency Department Note ---
Arrival - Arrival Time Seen by Provider: 11/03/16 03:50 - History of Present Illness HPI Narrative: This is a 61-year-old of descent with a history of COPD and recently treated pneumonia positive for Serratia who is admitted to the hospital in the first part of October and spent 5 days receiving steroids albuterol and antibiotics who continues to smoke and who presents with respiratory distress and wheezing by ambulance which was managed as an exacerbation of COPD and asthma. The patient's chest x-ray showed no infiltrate. He has a history of hypertension and type 2 diabetes. The patient's condition improved on CPAP. Allergies/Adverse Reactions: Allergies Allergy/AdvReac Type Severity Reaction Status Date / Time lisinopril AdvReac Cough Verified 08/18/16 09:10 Home Medications: Home Medications Medication Instructions Recorded Confirmed Type Albuterol Neb [Proventil Neb] 2.5 mg RESP TX Q6H PRN 02/05/16 10/07/16 History Atorvastatin [Lipitor] 20 mg PO BEDTIME 02/05/16 10/07/16 History Benztropine Mesylate 1 mg PO BEDTIME 02/05/16 10/07/16 History Budesonide/Formoterol 160-4.5 2 puff INH BID PRN 02/05/16 10/07/16 History [Symbicort 160-4.5] Furosemide Tab [Lasix Tab] 20 mg PO BID DIURETIC 02/05/16 10/07/16 History Isosorbide Mononitrate [Isosorbide 60 mg PO BID 02/05/16 10/07/16 History Mononitrate ER] Loratadine 10 mg PO DAILY 02/05/16 10/07/16 History Metoprolol Tartrate Tab [Lopressor 100 mg PO BID 02/05/16 10/07/16 History Tab] Omeprazole [Prilosec] 40 mg PO DAILY 02/05/16 10/07/16 History Potassium Chloride Cap/Tab [K Dur] 20 meq PO BID 02/05/16 10/07/16 History Prazosin HCl 5 mg PO BEDTIME 02/05/16 10/07/16 History Sertraline HCl 100 mg PO DAILY 02/05/16 10/07/16 History Simethicone Chew Tab [Mylicon Chew 80 mg PO DAILY PRN 02/05/16 10/07/16 History Tab] amLODIPine [Norvasc] 10 mg PO DAILY 02/05/16 10/07/16 History glipiZIDE [Glipizide] 20 mg PO BID 02/05/16 10/07/16 History HYDROcodone/ACETAMIN 10-325 [[place] 1 tablet PO Q8H 07/22/16 10/07/16 History 10-325] Albuterol Inhaler [Proventil 2 puff INH Q6H PRN #1 inhaler 07/28/16 10/07/16 Rx Inhaler] predniSONE TAB [PredniSONE] 20 mg PO BID #20 tablet 08/18/16 10/07/16 Rx Ipratropium/Albuterol Inhaler 2 puff INH BID 10/07/16 10/07/16 History [Combivent Respimat Inhaler] risperiDONE [Risperidone] 3 mg PO BEDTIME 10/07/16 10/07/16 History Ciprofloxacin Tab [Cipro Tab] 500 mg PO BID #14 tablet 10/12/16 Rx Theophylline ER Tab 300 mg PO BID W/MEALS #100 tablet 10/12/16 Rx Review of System - Review of System Constitutional: Absent: fever, weakness Eyes: Absent: redness, vision change Head/Ears/Nose/Throat: Absent: epistaxis, nasal drainage Respiratory: Absent: respiratory distress Cardiovascular: Absent: edema Gastrointestinal: Absent: diarrhea, constipation, hematemesis Genitourinary male: Absent: urgency, hematuria Musculoskeletal: Absent: joint swelling, lower back pain, leg pain Skin: Absent: change in color, change in hair/nails Neurological: Absent: numbness, paresthesias Psychiatric: Absent: suicidal thoughts, homicidal thoughts Endocrine: Absent: heat intolerance, polydipsia Hematological/Lymphatic: Absent: easy bruising, lymphadenopathy Allergic/Immunologic: Absent: urticaria, itchy eyes Medical,Surgical,& Family Hx - Medical History Cardio: History of: CHF, Hypertension Psychological: History of: Depression (PTSD) Endocrine: History of: Diabetes Mellitus (IDDM), Diabetes Mellitus (NIDDM), Dyslipidemia Respiratory: History of: Asthma, COPD, Obstructive Sleep Apnea Genitourinary: History of: Prostate Problems (prostate cancer), Problems ( urinary incontinence ocassionally) Gastrointestinal: History of: GERD - Surgical History Reproductive Surgeries: Surgical HX of;: Prostate Surgery (prostate removal) - Family History Family History: Reports;: Family Heart Disease - Social History Smoking Status: Current every day smoker Exam Vital Signs: Vital Signs Temperature 98.1 F 11/03/16 03:34 Pulse Rate 122 H 11/03/16 03:34 Respiratory Rate 28 H 11/03/16 03:34 Blood Pressure 168/109 11/03/16 03:34 O2 Sat by Pulse Oximetry 92 L 11/03/16 03:34 - General General appearance: alert - Eye Eye exam: Present: PERRL, EOMI - ENT ENT exam: Present: normal exam - Neck Neck exam: Present: normal inspection, full ROM - Chest Chest inspection: Present: other (Decreased breath sounds bilaterally with occasional wheezing) - Cardiovascular Cardiovascular exam: Present: tachycardia - Abdominal Exam Abdominal exam: Present: soft, normal bowel sounds - Extremities Exam Extremities exam: Present: normal inspection, full ROM - Back Exam Back exam: Present: normal inspection, full ROM - Neurological Exam Neurological exam: Present: alert - Psychiatric Psychiatric exam: Present: normal affect - Skin Skin exam: Present: diaphoresis Course Course Narrative: The patient was initially agitated and in impending respiratory failure. He was managed with CPAP albuterol intravenous steroids until his condition improved. The case was discussed with the hospitalist who agreed to admit the patient to the hospital Results - Labs CBC & BMP: 11/03/16 03:18 11/03/16 03:18 Disposition Clinical Impression: COPD exacerbation Disposition: Still a Patient Additional Instructions: The patient was initially agitated and in impending respiratory failure. He was managed with CPAP albuterol intravenous steroids until his condition improved. The case was discussed with the hospitalist who agreed to admit the patient to the hospital
[2016-11-03 04:16] LABS: Alanine Aminotransferase 35 U/L (16-61); Albumin 4.1 G/DL (3.4-5.0); Alkaline Phosphatase 91 U/L (45-117); Aspartate Amino Transferase 33 U/L (0-37); Blood Urea Nitrogen 14 MG/DL (7-18); Calcium 9.5 MG/DL (8.5-10.1); Glucose 181 MG/DL (74-106); Osmolality,Calculated 284.4 MOS/KG (273-304); Potassium 3.4 MMOL/L (3.5-5.1); Sodium 140 MMOL/L (136-145); Total Protein 7.9 G/DL (6.4-8.3); Troponin I Only < 0.015 NG/ML (0.00-0.045)
[2016-11-03 04:18] LABS: ABG Base Excess 1.2 MMOL/L (-2.5-2.5); ABG Oxygen Saturation 99.1 % (95-100); ABG PH 7.377 (7.35-7.45); ABG PO2 232.5 MM HG (80-95); ABG TCO2 28.4 MMOL/L (23-27); Allen Test Positive; Pt O2 Delivery Device BIPAP
--- NOTE | 2016-11-03 05:44 | Hospitalist History & Physical ---
History of Present Illness Chief complaint: worsening shortness of breath History of present illness: Mr. Fournier is a 61 year old male who presents with one day of worsening shortness of breath, wheezing, and productive cough of yellow sputum. Sick contacts are positive. There have been no fevers or chills. He endorses some PND and orthopnea. He denies any LE swelling. He was recently hospitalized for a pneumonia. While in the ER, he required BIPAP. He states that it is helping. He also received solumedrol and neb treatment. He continues to smoke. Home Medications Medication Instructions Recorded Confirmed Type Albuterol Neb [Proventil Neb] 2.5 mg RESP TX Q6H PRN 02/05/16 10/07/16 History Atorvastatin [Lipitor] 20 mg PO BEDTIME 02/05/16 10/07/16 History Benztropine Mesylate 1 mg PO BEDTIME 02/05/16 10/07/16 History Budesonide/Formoterol 160-4.5 2 puff INH BID PRN 02/05/16 10/07/16 History [Symbicort 160-4.5] Furosemide Tab [Lasix Tab] 20 mg PO BID DIURETIC 02/05/16 10/07/16 History Isosorbide Mononitrate [Isosorbide 60 mg PO BID 02/05/16 10/07/16 History Mononitrate ER] Loratadine 10 mg PO DAILY 02/05/16 10/07/16 History Metoprolol Tartrate Tab [Lopressor 100 mg PO BID 02/05/16 10/07/16 History Tab] Omeprazole [Prilosec] 40 mg PO DAILY 02/05/16 10/07/16 History Potassium Chloride Cap/Tab [K Dur] 20 meq PO BID 02/05/16 10/07/16 History Prazosin HCl 5 mg PO BEDTIME 02/05/16 10/07/16 History Sertraline HCl 100 mg PO DAILY 02/05/16 10/07/16 History Simethicone Chew Tab [Mylicon Chew 80 mg PO DAILY PRN 02/05/16 10/07/16 History Tab] amLODIPine [Norvasc] 10 mg PO DAILY 02/05/16 10/07/16 History glipiZIDE [Glipizide] 20 mg PO BID 02/05/16 10/07/16 History HYDROcodone/ACETAMIN 10-325 [[place] 1 tablet PO Q8H 07/22/16 10/07/16 History 10-325] Albuterol Inhaler [Proventil 2 puff INH Q6H PRN #1 inhaler 07/28/16 10/07/16 Rx Inhaler] predniSONE TAB [PredniSONE] 20 mg PO BID #20 tablet 08/18/16 10/07/16 Rx Ipratropium/Albuterol Inhaler 2 puff INH BID 10/07/16 10/07/16 History [Combivent Respimat Inhaler] risperiDONE [Risperidone] 3 mg PO BEDTIME 10/07/16 10/07/16 History Ciprofloxacin Tab [Cipro Tab] 500 mg PO BID #14 tablet 10/12/16 Rx Theophylline ER Tab 300 mg PO BID W/MEALS #100 tablet 10/12/16 Rx Allergies Allergy/AdvReac Type Severity Reaction Status Date / Time lisinopril AdvReac Cough Verified 08/18/16 09:10 Medical,Surgical,& Family Hx - Medical History Cardio: History of: CHF, Hypertension Psychological: History of: Depression (PTSD) Endocrine: History of: Diabetes Mellitus (IDDM), Diabetes Mellitus (NIDDM), Dyslipidemia Respiratory: History of: Asthma, COPD, Obstructive Sleep Apnea Genitourinary: History of: Prostate Problems (prostate cancer), Problems ( urinary incontinence ocassionally) Gastrointestinal: History of: GERD - Surgical History Reproductive Surgeries: Surgical HX of;: Prostate Surgery (prostate removal) - Family History Family History: Reports;: Family Heart Disease - Social History Smoking Status: Current every day smoker Frequency of Alcohol Use: None Type of Drug Use: Cocaine, Marijuana 12 point system: reviewed and no additional remarkable complaints except as stated Exam - Constitutional Vitals: Period Temp Pulse Resp BP Sys/Chua Pulse Ox Last 24 Hr 98.1 F-98.1 F 122-122 28-28 168-168/109-109 92-92 General appearance: no acute distress, mild distress (mild respiratory distress , wearing BIPAP; able to speak in complete sentences) - Head Head exam: Present: normal inspection, normocephalic - Eye Eye exam: Present: EOMI. Absent: conjunctival injection, scleral icterus Pupils: Present: CHIQUITA - ENT ENT exam: Present: normal oropharynx (has BIPAP mask) - Respiratory Respiratory exam: Present: prolonged expiratory phase (slightly labored respirations, descent air movement), rhonchi. Absent: rales, wheezes - Cardiovascular Cardiovascular exam: Present: tachycardia (regular rhythm) - GI/Abdominal GI/Abdominal exam: Present: normal bowel sounds, soft. Absent: distended, tenderness - Extremities Exam Extremities exam: Absent: edema - Neurological Exam Neurological exam: Present: alert, oriented X3 - Psychiatric Psychiatric exam: Present: normal affect, normal mood - Skin Skin exam: Present: normal color, dry Results - Labs CBC & BMP: 11/03/16 03:18 11/03/16 03:18 - EKG EKG results: no acute changes (EKG from outside facility: sinus tachycardia) - Impressions Patient is a 61 yo male admitted for acute respiratory failure 2nd to COPD with acute exacerbation. Active Issues: 1. Acute respiratory failure 2. COPD with acute exacerbation 3. HTN, blood pressure uncontrolled 4. Tobacco use, counselled 5. Comorbid conditions: history of DM, AURELIO, CHF, BPH, GERD, depression Plan: admit to telemetry (while on BIPAP), add steroids, antibiotics, duonebs, consult pulmonary, continue BIPAP and titrate oxygen status as allowed, start nicotine patch, control blood pressure, control sugars, restart home medications as appropriate. DVT prophalaxis. CODE: FULL The plan of care may be modified as more information becomes available. - Diagnostic Findings Procedure: Chest x-ray: report reviewed by me (hyperinflated lungs; possible airspace disease in RLL)
[2016-11-03] MEDS ORDERED: hydrALAZINE 20 MG/1 ML VIAL IV PRN (06:03)
[2016-11-03] MEDS ORDERED: DEXTROSE 50% 25 GM/50 ML SYRINGE IV PRN ×3 (06:07→06:15)
[2016-11-03] MEDS ORDERED: GLUCAGON 1 MG VIAL IM PRN ×3 (06:07→06:15)
[2016-11-03 07:51] LABS: Eosinophils % 0.2 % (0.00-10.9); Hematocrit 40.1 VOL% (42.0-52.0); Hemoglobin 13.6 GM/DL (14.0-18.0); Immature Granulocytes % 0.4 %; Immature Granulocytes Absolute 0.02 #; Lymphocytes # 0.5 10*3/uL (1.4-4.0); Lymphocytes % 10.2 % (21.2-54.2); Mean Corpuscular HGB Conc 33.9 GM/DL (32-36); Mean Corpuscular Hemoglobin 30 PG (27-34); Mean Corpuscular Volume 88.1 FL (87-102); Mean Platelet Volume 11.8 FL (9.6-12.0); Monocytes # 0.1 10*3/uL (0.11-0.8); Monocytes % 2.8 % (1.7-12.7); Neutrophils % 86.4 % (38.7-73.9); Platelet Count 143 T/CUMM (130-400); Red Blood Count 4.55 MC/CUMM (3.8-5.5); Red Cell Distribution Width 13.2 % (9.3-17.3); White Blood Count 4.6 T/CUMM (4-12)
[2016-11-03] MEDS ORDERED: cefTRIAXone 1,000 MG in SODIUM CHLORIDE 0.9% 100 ML IV SCH (08:00)
[2016-11-03] MEDS ORDERED: FUROSEMIDE 20 MG TABLET PO SCH (08:00)
[2016-11-03] MEDS: ALBUTEROL/IPRATROPIUM 3 ML NEB RESP TX SCH ×2 (08:10→11:17)
[2016-11-03 08:24] LABS: Calcium 9.5 MG/DL (8.5-10.1); Magnesium 1.7 MG/DL (1.8-2.4); Osmolality,Calculated 288.4 MOS/KG (273-304); Potassium 3.4 MMOL/L (3.5-5.1)
--- NOTE | 2016-11-03 08:52 | EKG Report ---
Stationary ECG Study [facility] ER Test Date: 11/03/2016 3:56:17 AM Pat Name: HAY GERONIMO Department: Room: 271 Gender: M Contract Associate: : [id number] Requested by: Tim Kiran Order Number: [id number] Reading MD: CALEB FELIPE Intervals [place] Rate: 111 P: -78 RI: 258 QRS: 43 QRSD: 99 T: 79 QT: 342 QTc: 407 Interpretive Statements SINUS TACHYCARDIA Electronically Signed On 11-03-16 13:56:36 CDT by CALEB FELIPE [email or web address]
[2016-11-03] MEDS ORDERED: DOXYCYCLINE HYCLATE 100 MG CAPSULE PO SCH (09:00)
--- NOTE | 2016-11-03 09:23 | EKG Report ---
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
[2016-11-03] MEDS: amLODIPine 10 MG TABLET PO SCH (09:24)
[2016-11-03] MEDS: INSULIN LISPRO 100 UNIT/ML SUBCUT SCH ×4 (09:24→20:22)
[2016-11-03] MEDS: PANTOPRAZOLE 40 MG TABLET PO SCH (09:24)
[2016-11-03] MEDS: METOPROLOL TARTRATE 50 MG TABLET PO SCH ×2 (09:24→20:22)
[2016-11-03] MEDS: ENOXAPARIN 40 MG/0.4 ML SYRINGE SUBCUT SCH (09:24)
[2016-11-03] MEDS: ISOSORBIDE MONONITRATE 60 MG TABLET PO SCH ×2 (09:24→20:22)
[2016-11-03] MEDS: NICOTINE 21 MG/24 HR PATCH TRANSDERM SCH (09:25)
[2016-11-03] MEDS ORDERED: MAGNESIUM SULF RIDER 2 GM in PREMIX 1 EACH IV ONE (10:00)
--- NOTE | 2016-11-03 10:17 | XRay Report ---
Portable chest November 03, 2016 Indication: Right lower lobe consolidation Comparison from October 11, 2016 1716 hours Findings: Cardiomediastinal contours are stable. Chronic coarsening of the interstitial pattern is again noted. Lungs are otherwise clear bilaterally with resolution and improved aeration of the right lung base. No acute osseous abnormalities. Visualized upper abdomen is remarkable. Impression: No acute cardiopulmonary findings PROCEDURE INTERPRETED AT [facility] DEPARTMENT OF RADIOLOGY Final Report Signed by: Sanket Escobar
[2016-11-03] MEDS: POTASSIUM CHLORIDE 20 MEQ TABLET PO SCH (10:24)
[2016-11-03] MEDS ORDERED: BUDESONIDE/FORMOTEROL 160-4.5 INHALER 6 GM INH PRN (10:50)
--- NOTE | 2016-11-03 11:08 | Hospitalist Progress Note ---
Assessment and Plan (1) Acute respiratory failure with hypoxia Status: Acute Assessment and plan: Continue CPAP 15 decrease FiO2 to 35%, continue steroids, duo nebs and Zosyn. Dr. Jung will be seeing him shortly. Critical care time 50 min Current Visit: No (2) Acute exacerbation of chronic obstructive pulmonary disease (COPD) Status: Resolved Assessment and plan: Continue duo nebs, Symbicort, Zosyn, theophylline Current Visit: No (3) Community acquired pneumonia Status: Resolved Assessment and plan: Switch to Zosyn due to worsening respiratory failure. Current Visit: No (4) Chronic diastolic (congestive) heart failure Status: Acute Assessment and plan: Repeat echo, last echo EF was normal at 55 with no abnormal PAP with grade 1 diastolic dysfunction Current Visit: Yes (5) Obstructive sleep apnea Status: Chronic Assessment and plan: dr Garcia will see him on Saturday Current Visit: No (6) Hypertension Status: Chronic Assessment and plan: Continue metoprolol, Norvasc and Imdur. Current Visit: No (7) Diabetes Status: Chronic Assessment and plan: Insulin sliding scale, hemoglobin A1c, continue glipizide Current Visit: No Hospitalist: Subjective Interval history: Patient was placed on BiPAP for pneumonia and was on telemetry. Patient was in severe respiratory distress and is high risk for respiratory failure and have moved him down to the ICU for further care and treatment. I discussed his case with Dr. Tapia. We have changed his antibiotics to Zosyn to be more aggressive. Exam - Constitutional Vitals: Period Temp Pulse Resp BP Sys/Chua Pulse Ox Last 24 Hr 98.0 F-98.1 F 89-124 19-28 149-168/97-115 92-100 Exam: Heart Rate-[tachy] Lungs-[rhonchi and diminished ] GI-[+bs soft, NT] Ext-[no edema] Neuro [Motor 5/5], [alert and oriented times 3] psych [normal mood and affect] General [no acute distress] Results - Labs CBC & BMP: 11/03/16 07:44 11/03/16 07:44 Lab Results: I have reviewed the past 24 hour labs Labs: Magnesium 1.7, serial troponins negative. Lactic acid is 1.9. ABG PO2 is 232 - Diagnostic Findings Procedure: Chest x-ray: report reviewed by me (Chronic coarsening of interstitial pattern.)
[2016-11-03 11:21] LABS: Allen Test Positive; Pt O2 Delivery Device BIPAP
[2016-11-03 11:22] LABS: ABG Base Excess 0.1 MMOL/L (-2.5-2.5); ABG HCO3 24.5 MMOL/L (20-26); ABG Oxygen Saturation 99.3 % (95-100); ABG PCO2 47.9 MM HG (35-48); ABG PH 7.349 (7.35-7.45)
[2016-11-03] MEDS ORDERED: MORPHINE 2 MG/1 ML SYRINGE ONE (11:22)
[2016-11-03] MEDS: MORPHINE 2 MG/1 ML SYRINGE IV PRN ×2 (11:46→15:40)
[2016-11-03] MEDS: glipiZIDE 10 MG TABLET PO SCH ×2 (12:25→20:22)
[2016-11-03] MEDS: PIPERACILLIN/TAZOBACTAM 3,375 MG in SODIUM CHLORIDE 0.9% 100 ML IV SCH ×2 (12:25→19:18)
[2016-11-03] MEDS ORDERED: IPRATROPIUM 500 MCG/2.5 ML NEB RESP TX PRN (12:36)
--- NOTE | 2016-11-03 12:40 | Pulmonology Consult Note ---
History of Present Illness Chief complaint: Acute bronchitis with bronchospasm. COPD. GERD. History of present illness: Mr. Fournier is a 61 year old black male whom I been asked see in pulmonary consultation for evaluation and treatment. This patient has long-standing COPD and asthma. He has dyspnea on exertion and shortness of breath. He had been in his usual state of health. He took his medicines a little bit late on 11/02/2016. He went to bed in his normal state. He woke up during the night severely short of breath. He got up took his inhaler and later on he got worse and he took his nebulizer and he did not get better and eventually he called the ambulance. The patient has mild solid dysphasia. He has gastroesophageal reflux with the gastric contents refluxing back up into his throat. This occurred last night and precipitated the acute respiratory distress. In addition the patient is continued to smoke cigarettes. He did said he did stop smoking for a period of time but stress because him to restart smoking. He says he smokes one third of a pack of cigarettes per day Patient has obstructive sleep apnea. He uses CPAP at night. He denies syncope near syncope he has had no hemoptysis. The remainder the review of systems is negative. Allergies. Lisinopril. Medicines. See below. Past history. High blood pressure. History of depression and posttraumatic stress disorder. History of congestive heart failure. Insulin-dependent diabetes mellitus. Hyperlipidemia. COPD. Asthma. Obstructive sleep apnea. Prostate cancer. Occasional urinary incontinence. Gastroesophageal reflux disease. History of colon polyps followed at the [facility]. Previous prostatectomy. Social history. Patient admits to smoking one third of a pack of cigarettes per day. He has used cocaine and marijuana. He denies alcohol. Family history. Positive for heart disease. Chest x-ray. 11/03/2016. My interpretation. Normal size heart. Enlarged pulmonary arteries. Benign calcifications of both hilar areas. Mediastinum is normal. There are increased markings at both bases. Those in the right lower lung may turn into an infiltrate.Watch for bibasilar interstitial lung disease secondary to aspiration ABGs. FiO2 50%. CPAP. PH 7.349, PCO2 47.9, PO2 250, bicarb 24.5. Microbiology. No reports Lab. Sodium 140. Potassium 3.4. Creatinine 1.20. BUN 17. Magnesium low at 1.7. Calcium and lactic acid are normal. Liver function tests are normal. Natruretic peptide is 36. H&H 13.6/40.1 with normal indices. White count is 4686 segs and 10 lymphs. Platelets are 143,000. Labs been reviewed. Medicines have been reviewed. Physical exam. Vital signs.'s see below. Face. Symmetrical. No edema of the lips or tongue. Lymphatics. No submandibular cervical supraclavicular or epitrochlear adenopathy. Arterial. Carotids are decreased. Upper extremity pulses are palpable lower extremity pulses are nonpalpable. Venous exam. Neck upper and lower extremities are within normal limits. Neurologic. Cranial nerves are intact with some mild decreased hearing acuity bilaterally. Long track motor functions intact. Sensory exam was not done. Gait was not tested. Chest. Hyperinflated with prolonged incomplete expiration. Patient has tracheal and large airway wheeze. He is not moving enough air to produce any peripheral wheezes. Heart. Heart sounds are distant. I do not hear a murmur rub or gallop Abdomen. Obese. Nontender. No organs can be palpated. Bowel sounds are present. and rectal deferred Lower extremities. No evidence of deep venous thrombophlebitis. The remainder the physical exam is negative. Impression. 1. COPD/asthma 2. Gastroesophageal reflux disease. Mild solid dysphasia. 3. Acute bronchitis and bronchospasm. Most likely secondary to nocturnal gastroesophageal reflux with microaspiration 4. Tobacco abuse 5. Insulin-dependent diabetes mellitus. 6. Prostatectomy for prostate cancer. 7. History of posttraumatic stress disorder 8. High blood pressure 9. See past history 10. History of colon polyp Plan 1. Singulair 10 mg p.o. twice daily 2. Try Atrovent inhalation. 3. Theophylline level. If low will give theophylline infusion to supplement the level 4. Antireflux regimen which I instructed the patient in 5. Consider GI consultation concerning solid dysphasia and gastroesophageal reflux disease. He could have a stricture. Also have to consider the possibility of Gómez's esophagitis 6. I agree with present medicines. 7. Sputum for Gram stain culture and sensitivity 8. 2 view chest x-ray in a.m. 9. ABGs in the morning. 10. I have discussed the case with Dr. Weir and we have coordinated our care. Home Medications Medication Instructions Recorded Confirmed Type Albuterol Neb [Proventil Neb] 2.5 mg RESP TX Q6H PRN 02/05/16 10/07/16 History Atorvastatin [Lipitor] 20 mg PO BEDTIME 02/05/16 10/07/16 History Benztropine Mesylate 1 mg PO BEDTIME 02/05/16 10/07/16 History Budesonide/Formoterol 160-4.5 2 puff INH BID PRN 02/05/16 10/07/16 History [Symbicort 160-4.5] Furosemide Tab [Lasix Tab] 20 mg PO BID DIURETIC 02/05/16 10/07/16 History Isosorbide Mononitrate [Isosorbide 60 mg PO BID 02/05/16 10/07/16 History Mononitrate ER] Loratadine 10 mg PO DAILY 02/05/16 10/07/16 History Metoprolol Tartrate Tab [Lopressor 100 mg PO BID 02/05/16 10/07/16 History Tab] Omeprazole [Prilosec] 40 mg PO DAILY 02/05/16 10/07/16 History Potassium Chloride Cap/Tab [K Dur] 20 meq PO BID 02/05/16 10/07/16 History Prazosin HCl 5 mg PO BEDTIME 02/05/16 10/07/16 History Sertraline HCl 100 mg PO DAILY 02/05/16 10/07/16 History Simethicone Chew Tab [Mylicon Chew 80 mg PO DAILY PRN 02/05/16 10/07/16 History Tab] amLODIPine [Norvasc] 10 mg PO DAILY 02/05/16 10/07/16 History glipiZIDE [Glipizide] 20 mg PO BID 02/05/16 10/07/16 History HYDROcodone/ACETAMIN 10-325 [Imboden 1 tablet PO Q8H 07/22/16 10/07/16 History 10-325] Albuterol Inhaler [Proventil 2 puff INH Q6H PRN #1 inhaler 07/28/16 10/07/16 Rx Inhaler] predniSONE TAB [PredniSONE] 20 mg PO BID #20 tablet 08/18/16 10/07/16 Rx Ipratropium/Albuterol Inhaler 2 puff INH BID 10/07/16 10/07/16 History [Combivent Respimat Inhaler] risperiDONE [Risperidone] 3 mg PO BEDTIME 10/07/16 10/07/16 History Ciprofloxacin Tab [Cipro Tab] 500 mg PO BID #14 tablet 10/12/16 Rx Theophylline ER Tab 300 mg PO BID W/MEALS #100 tablet 10/12/16 Rx Allergies Allergy/AdvReac Type Severity Reaction Status Date / Time lisinopril AdvReac Cough Verified 08/18/16 09:10 Exam (Pulmonay) H&P - Constitutional Vitals: Period Temp Pulse Resp BP Sys/Chua Pulse Ox Last 24 Hr 98.0 F-98.1 F 85-124 19-28 149-168/97-115 92-100 Medical,Surgical,& Family Hx - Medical History Cardio: History of: CHF, Hypertension Psychological: History of: Depression (PTSD) Endocrine: History of: Diabetes Mellitus (IDDM), Diabetes Mellitus (NIDDM), Dyslipidemia Respiratory: History of: Asthma, COPD, Obstructive Sleep Apnea Genitourinary: History of: Prostate Problems (prostate cancer-removed), Problems (urinary incontinence ocassionally) Gastrointestinal: History of: GERD - Surgical History Reproductive Surgeries: Surgical HX of;: Prostate Surgery (prostate removal) - Family History Family History: Reports;: Family Heart Disease - Social History Smoking Status: Current every day smoker Frequency of Alcohol Use: None Type of Drug Use: Cocaine, Marijuana Results - Labs CBC & BMP: 11/03/16 07:44 11/03/16 07:44
[2016-11-03] MEDS: methylPREDNISolone SOD SUC 125 MG/2 ML VIAL IV SCH ×2 (13:16→20:22)
[2016-11-03] MEDS: IPRATROPIUM 500 MCG/2.5 ML NEB RESP TX SCH ×2 (13:19→19:36)
--- NOTE | 2016-11-03 13:37 | ECHO Report ---
Chasity Fournier Exam Date: 11/03/2016 11:06 Referring Physician: Technologist: Mary Jane Banks Age: 61 Ht (in): 73 Wt (lb): 265 Gender: M Exam Location: [facility] Echo Indications: altered mental status, pneumonia, hypoxia, acute resp failure, COPD, diabetes, HTN, cocaine abuse, Pt. on BI PAP BP: 167 / 115 HR: 98 Rhythm: Sinus Technical Quality: Technically difficult study IMPRESSIONS Left ventricular ejection fraction is estimated at 55-60 %. Grade I/IV diastolic dysfunction (abnormal relaxation filling pattern), normal to mildly elevated filling pressures. Mild concentric left ventricular hypertrophy. Normal right ventricular size. Normal right atrial size. Normal left atrial size. Morphologically normal mitral valve. Trace mitral valve regurgitation. The aortic valve is trileaflet and has normal motion. Mild tricuspid valve regurgitation. PAP30 mmHG. Pulmonic valve not well visualized. No pericardial effusion. Normal size aortic root and proximal ascending aorta. MEASUREMENTS (Male / Female) Normal Values 2D ECHO LV Diastolic Diameter PLAX 4.5 cm 4.2 - 5.9 / 3.9 - 5.3 cm LV Systolic Diameter PLAX 3.3 cm LV Fractional Shortening PLAX 26.9 % IVS Diastolic Thickness 1.6 cm 0.6 - 1.0 / 0.6 - 0.9 cm LVPW Diastolic Thickness 1.4 cm 0.6 - 1.0 / 0.6 - 0.9 cm Aortic Root Diameter 3.1 cm LA Systolic Diameter LX 3.6 cm 3.0 - 4.0 / 2.7 - 3.8 cm DOPPLER TR Peak Velocity 190.0 cm/s TR Peak Gradient 14.4 mmHg FINDINGS Left Ventricle Left ventricular ejection fraction is estimated at 55-60 %. Grade I/IV diastolic dysfunction (abnormal relaxation filling pattern), normal to mildly elevated filling pressures. Mild concentric left ventricular hypertrophy. Right Ventricle Normal right ventricular size. Right Atrium Normal right atrial size. Left Atrium Normal left atrial size. Mitral Valve Morphologically normal mitral valve. Trace mitral valve regurgitation. Aortic Valve The aortic valve is trileaflet and has normal motion. Tricuspid Valve Morphologically normal tricuspid valve. Mild tricuspid valve regurgitation. PAP30 mmHG. Pulmonic Valve Pulmonic valve not well visualized. Pericardium No pericardial effusion. Aorta Normal size aortic root and proximal ascending aorta. Nicolas Shae (Electronically Signed) Final Date: 03 November 2016 13:36
[2016-11-03] MEDS: THEOPHYLLINE ER 300 MG TABLET PO SCH (17:57)
[2016-11-03] MEDS: MONTELUKAST 10 MG TABLET PO SCH (20:22)
[2016-11-03] MEDS: ATORVASTATIN 20 MG TABLET PO SCH (20:22)
[2016-11-03] MEDS ORDERED: traZODone 50 MG TABLET PO ONE (20:40)
[2016-11-03] MEDS: risperiDONE 1 MG TABLET PO SCH (20:51)
[2016-11-04] MEDS: IPRATROPIUM 500 MCG/2.5 ML NEB RESP TX SCH ×4 (00:06→20:07)
[2016-11-04] MEDS: PIPERACILLIN/TAZOBACTAM 3,375 MG in SODIUM CHLORIDE 0.9% 100 ML IV SCH ×3 (02:12→18:13)
[2016-11-04 03:03] LABS: ABG Base Excess 1.6 MMOL/L (-2.5-2.5); ABG HCO3 25.7 MMOL/L (20-26); ABG Oxygen Saturation 94.3 % (95-100); ABG PCO2 44.4 MM HG (35-48); ABG PH 7.391 (7.35-7.45); ABG TCO2 23.7 MMOL/L (23-27); Allen Test Positive
[2016-11-04] MEDS: methylPREDNISolone SOD SUC 125 MG/2 ML VIAL IV SCH ×3 (04:43→20:57)
[2016-11-04 06:48] LABS: Basophils % 0.1 % (0.0-0.8); Hematocrit 36.7 VOL% (42.0-52.0); Hemoglobin 12.7 GM/DL (14.0-18.0); Immature Granulocytes % 0.6 %; Immature Granulocytes Absolute 0.05 #; Lymphocytes # 0.6 10*3/uL (1.4-4.0); Lymphocytes % 7.1 % (21.2-54.2); Mean Corpuscular HGB Conc 34.6 GM/DL (32-36); Mean Corpuscular Hemoglobin 30 PG (27-34); Mean Corpuscular Volume 87.2 FL (87-102); Mean Platelet Volume 12.4 FL (9.6-12.0); Monocytes # 0.2 10*3/uL (0.11-0.8); Monocytes % 2.9 % (1.7-12.7); Neutrophils # 7.4 10*3/uL (1.4-7.4); Neutrophils % 89.3 % (38.7-73.9); Platelet Count 166 T/CUMM (130-400); Red Blood Count 4.21 MC/CUMM (3.8-5.5); Red Cell Distribution Width 13.1 % (9.3-17.3); White Blood Count 8.3 T/CUMM (4-12)
[2016-11-04 07:23] LABS: Calcium 9.8 MG/DL (8.5-10.1); Magnesium 2.1 MG/DL (1.8-2.4); Osmolality,Calculated 285.8 MOS/KG (273-304); Potassium 4.3 MMOL/L (3.5-5.1)
[2016-11-04 07:24] LABS: Hypochromasia Slight; Macrocytosis 1+
--- NOTE | 2016-11-04 08:00 | EKG Report ---
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
[2016-11-04] MEDS: NICOTINE 21 MG/24 HR PATCH TRANSDERM SCH (08:32)
[2016-11-04] MEDS: ISOSORBIDE MONONITRATE 60 MG TABLET PO SCH ×2 (08:33→20:56)
[2016-11-04] MEDS: ENOXAPARIN 40 MG/0.4 ML SYRINGE SUBCUT SCH (08:33)
[2016-11-04] MEDS: THEOPHYLLINE ER 300 MG TABLET PO SCH ×2 (08:33→18:12)
[2016-11-04] MEDS: INSULIN LISPRO 100 UNIT/ML SUBCUT SCH ×4 (08:34→20:58)
[2016-11-04] MEDS: glipiZIDE 10 MG TABLET PO SCH ×2 (08:34→20:57)
[2016-11-04] MEDS: PANTOPRAZOLE 40 MG TABLET PO SCH (08:34)
[2016-11-04] MEDS: amLODIPine 10 MG TABLET PO SCH (08:34)
[2016-11-04] MEDS: MONTELUKAST 10 MG TABLET PO SCH ×2 (08:34→20:57)
[2016-11-04] MEDS: METOPROLOL TARTRATE 50 MG TABLET PO SCH ×2 (08:34→20:57)
[2016-11-04] MEDS: POTASSIUM CHLORIDE 20 MEQ TABLET PO SCH (08:35)
[2016-11-04] MEDS: MORPHINE 2 MG/1 ML SYRINGE IV PRN (08:37)
--- NOTE | 2016-11-04 10:48 | Pulmonology Progress Note ---
Pulmonary - PN: Subj Interval history: This is a 61-year-old black male whom I saw in pulmonary consultation on 2016. My impressions were. 1. COPD/asthma 2. Gastroesophageal reflux disease. Mild solid dysphasia. 3. Acute bronchitis and bronchospasm. Most likely secondary to nocturnal gastroesophageal reflux with microaspiration 4. Tobacco abuse 5. Insulin-dependent diabetes mellitus. 6. Prostatectomy for prostate cancer. 7. History of posttraumatic stress disorder 8. High blood pressure 9. See past history 10. History of colon polyp 11/04/2016. Clinically the patient is markedly better today previously noted tracheal and large airway wheeze has improved significantly and he is moving a lot more care. He is comfortable lying nearly flat in bed. He did not seem to have any shortness of breath while he was eating his breakfast. His chest x- ray shows no definite infiltrates and there is no pulmonary edema. ABGs on FiO2 32% show pH 7.39, PCO2 of 44.4, PO2 73 and a bicarb of 26. Electrolytes are normal. Creatinine is dropped to 1.0 with a BUN of 25. Glucoses are mildly elevated. White count is 8388 segs and 7 lymphs. H&H 12.7 and 36.7 and platelets are normal at 166,000. There are no positive cultures. From a pulmonary standpoint I think this patient can be moved to a regular room. When it is time for him to go home I think we could send him home on 10 of prednisone a day for 7 days and 10 every other day for 10 doses. He has duo nebs for nebulizers at home and these can be continued. His theophylline level was nonexistent so he should be encouraged to take this medicine. At the time of discharge I think his Singulair could be decreased to 10 mg daily. I have discussed antireflux regimen with this patient. When discharged she can be referred back to his Primary care physician. He does not need a follow-up appointment to see me. Note that drug screen is pending. Physical exam. Vital signs. See below Psychiatric. Oriented 3. General. In no distress and markedly improved compared to my exam yesterday. Face is symmetrical with no edema of the lips or tongue. The patient does have a big tongue. He has a history of sleep apnea. Neck is short thick slightly kyphotic with no meningismus. Lymphatics. No submandibular cervical supraclavicular or epitrochlear adenopathy Chest. Symmetrical slightly kyphotic hyperinflated with moderate prolongation of expiration. Expiration is not quite complete. The previously noticed severe tracheal and large airway wheezes now mild wheeze. Heart. No gallop Abdomen obese. Nontender positive bowel sounds. No organs can be palpated Lower extremities. Chronic venous stasis. Neurologic. Cranial nerves are intact. Long track motor functions intact The remainder the physical exam is negative. Plan 11/03/2016 1. Singulair 10 mg p.o. twice daily 2. Try Atrovent inhalation. 3. Theophylline level. If low will give theophylline infusion to supplement the level 4. Antireflux regimen which I instructed the patient in 5. Consider GI consultation concerning solid dysphasia and gastroesophageal reflux disease. He could have a stricture. Also have to consider the possibility of Gómez's esophagitis 6. I agree with present medicines. 7. Sputum for Gram stain culture and sensitivity 8. 2 view chest x-ray in a.m. 9. ABGs in the morning. 10. I have discussed the case with Dr. Weir and we have coordinated our care. 11/04/2016. 1. See today's note above. Attention to suggested discharge medicines. 2. Okay to move to floor. Exam (Progress Note) - Constitutional Vitals: Period Temp Pulse Resp BP Sys/Chua Pulse Ox Last 24 Hr 97.9 F-98.4 F 63-91 12-28 114-153/80-115 93-100 Results - Labs CBC & BMP: 11/04/16 05:22 11/04/16 05:22
--- NOTE | 2016-11-04 11:22 | XRay Report ---
Portable chest November 04, 2016 Indication: Pneumonia, cough Comparison images from previous day at 0343 hours Findings: Chronic coarsened interstitial markings. No superimposed consolidation or congestive process. Cardiomediastinal contours are normal. No acute osseous abnormalities Impression: Stable chest. No acute cardiopulmonary findings PROCEDURE INTERPRETED AT [facility] DEPARTMENT OF RADIOLOGY Final Report Signed by: Sanket Escobar
[2016-11-04] MEDS: ASPIRIN CHEW 81 MG TABLET PO SCH (11:37)
--- NOTE | 2016-11-04 15:33 | Hospitalist Progress Note ---
Assessment and Plan (1) Acute respiratory failure with hypoxia Status: Acute Assessment and plan: Continue CPAP [address] at [address] Thanks to Dr[address] Tapia for his help. Continue Zosyn and steroids. Current Visit: No (2) Acute exacerbation of chronic obstructive pulmonary disease (COPD) Status: Resolved Assessment and plan: Continue duo nebs, Symbicort, Zosyn, theophylline and steroids Current Visit: No (3) Community acquired pneumonia Status: Resolved Assessment and plan: Continue Zosyn with significant improvement today Current Visit: No (4) Chronic diastolic (congestive) heart failure Status: Acute Assessment and plan: Repeat echo shows normal EF of 55% with grade 1/4 diastolic dysfunction and PA P of 30 Current Visit: Yes (5) Obstructive sleep apnea Status: Chronic Assessment and plan: dr Garcia will see him on Saturday, continue CPAP at night Current Visit: No (6) Hypertension Status: Chronic Assessment and plan: Continue metoprolol, Norvasc and Imdur. Current Visit: No (7) Diabetes Status: Chronic Assessment and plan: Insulin sliding scale, hemoglobin A1c 8.1, continue glipizide, decrease steroids , blood sugars not well controlled, add metformin Current Visit: No Hospitalist: Subjective Interval history: Patient's respiratory failure is improving. He has been weaned off CPAP and is only requiring 2 L of oxygen. Will ask for him to fifth floor for further care and treatment. He says he has not been wearing his CPAP faithfully at night. He is still smoking but really wants to quit. He feels so much better today. Dr. Tapia and I have discussed his case. He recommends some Singulair. Exam - Constitutional Vitals: Period Temp Pulse Resp BP Sys/Chua Pulse Ox Last 24 Hr 97.7 F-98.4 F 63-90 12-25 114-153/79-98 93-100 Exam: Heart Rate-[regular rate and rhythm] Lungs-[clear and moving more air today GI-[+bs soft, NT] Ext-[no edema] Neuro [Motor 5/5], [alert and oriented times 3] psych [normal mood and affect] General [no acute distress] Results - Labs CBC & BMP: 11/04/16 05:22 11/04/16 05:22 Lab Results: I have reviewed the past 24 hour labs Labs: Sputum culture negative no growth - Diagnostic Findings Procedure: Chest x-ray: report reviewed by me (Stable nothing acute)
[2016-11-04] MEDS ORDERED: MAGNESIUM SULF RIDER 2 GM in PREMIX 1 EACH IV ONE (15:37)
[2016-11-04] MEDS: CYCLOBENZAPRINE 10 MG TABLET PO SCH ×2 (15:51→20:57)
[2016-11-04] MEDS: GABAPENTIN 600 MG TABLET PO SCH ×2 (15:51→20:57)
[2016-11-04] MEDS: metFORMIN 500 MG TABLET PO SCH (18:12)
[2016-11-04] MEDS: ATORVASTATIN 20 MG TABLET PO SCH (20:57)
[2016-11-04] MEDS: risperiDONE 1 MG TABLET PO SCH (20:57)
[2016-11-05] MEDS: IPRATROPIUM 500 MCG/2.5 ML NEB RESP TX SCH ×2 (00:32→08:36)
[2016-11-05] MEDS: PIPERACILLIN/TAZOBACTAM 3,375 MG in SODIUM CHLORIDE 0.9% 100 ML IV SCH ×2 (03:15→07:15)
[2016-11-05] MEDS: methylPREDNISolone SOD SUC 125 MG/2 ML VIAL IV SCH ×2 (03:15→13:55)
[2016-11-05 03:23] LABS: Hematocrit 33.9 VOL% (42.0-52.0); Hemoglobin 11.6 GM/DL (14.0-18.0); Immature Granulocytes % 1.4 %; Immature Granulocytes Absolute 0.14 #; Lymphocytes # 0.7 10*3/uL (1.4-4.0); Lymphocytes % 6.3 % (21.2-54.2); Mean Corpuscular HGB Conc 34.2 GM/DL (32-36); Mean Corpuscular Hemoglobin 30 PG (27-34); Mean Corpuscular Volume 87.6 FL (87-102); Mean Platelet Volume 12.4 FL (9.6-12.0); Monocytes # 0.4 10*3/uL (0.11-0.8); Monocytes % 3.5 % (1.7-12.7); Neutrophils # 9.2 10*3/uL (1.4-7.4); Neutrophils % 88.8 % (38.7-73.9); Platelet Count 165 T/CUMM (130-400); Red Blood Count 3.87 MC/CUMM (3.8-5.5); Red Cell Distribution Width 13.3 % (9.3-17.3); White Blood Count 10.3 T/CUMM (4-12)
[2016-11-05 03:53] LABS: Calcium 9.5 MG/DL (8.5-10.1); Magnesium 2.3 MG/DL (1.8-2.4); Osmolality,Calculated 286.8 MOS/KG (273-304); Potassium 4.2 MMOL/L (3.5-5.1)
[2016-11-05] MEDS: METOPROLOL TARTRATE 50 MG TABLET PO SCH (09:04)
[2016-11-05] MEDS: CYCLOBENZAPRINE 10 MG TABLET PO SCH (09:04)
[2016-11-05] MEDS: glipiZIDE 10 MG TABLET PO SCH (09:04)
[2016-11-05] MEDS: amLODIPine 10 MG TABLET PO SCH (09:04)
[2016-11-05] MEDS: metFORMIN 500 MG TABLET PO SCH (09:04)
[2016-11-05] MEDS: THEOPHYLLINE ER 300 MG TABLET PO SCH (09:04)
[2016-11-05] MEDS: POTASSIUM CHLORIDE 20 MEQ TABLET PO SCH (09:04)
[2016-11-05] MEDS: PANTOPRAZOLE 40 MG TABLET PO SCH (09:04)
[2016-11-05] MEDS: NICOTINE 21 MG/24 HR PATCH TRANSDERM SCH (09:05)
[2016-11-05] MEDS: GABAPENTIN 600 MG TABLET PO SCH (09:05)
[2016-11-05] MEDS: INSULIN LISPRO 100 UNIT/ML SUBCUT SCH ×2 (09:05→13:54)
[2016-11-05] MEDS: ASPIRIN CHEW 81 MG TABLET PO SCH (09:05)
[2016-11-05] MEDS: ISOSORBIDE MONONITRATE 60 MG TABLET PO SCH (09:05)
[2016-11-05] MEDS: ENOXAPARIN 40 MG/0.4 ML SYRINGE SUBCUT SCH (09:14)
[2016-11-05] MEDS: MONTELUKAST 10 MG TABLET PO SCH (09:14)
--- NOTE | 2016-11-05 09:28 | Hospitalist Progress Note ---
Assessment and Plan (1) COPD exacerbation Status: Acute Assessment and plan: We will continue inhaled corticosteroids, antibiotics, and intravenous bronchodilators as previously ordered. Current Visit: Yes (2) Acute respiratory acidosis Status: Acute Assessment and plan: We will continue CPAP at 15 at night. In addition, we will continue intravenous bronchodilators and corticosteroids. We will continue antibiotic coverage as previously ordered. Sleep medicine consultation requested. Current Visit: No Hospitalist: Subjective Interval history: Patient seen and examined; chart reviewed. No significant overnight events reported per staff. Patient states "I am ready to go home". Exam - Constitutional Vitals: Period Temp Pulse Resp BP Sys/Chua Pulse Ox Last 24 Hr 96.7 F-97.7 F 71-89 16-20 128-147/79-98 94-98 General appearance: normal weight, no acute distress - Head Head exam: Present: normal inspection, normocephalic, atraumatic - Eye Eye exam: Present: EOMI. Absent: conjunctival injection Pupils: Present: CHIQUITA, normal accommodation - ENT ENT exam: Present: normal exam, normal external ear exam, normal oropharynx - Neck Neck exam: Present: normal inspection. Absent: lymphadenopathy, meningismus, thyromegaly - Respiratory Respiratory exam: Present: clear to auscultation bilaterally. Absent: rales, rhonchi, stridor, wheezes - Cardiovascular Cardiovascular exam: Present: regular rate and rhythm. Absent: carotid bruit, diastolic murmur, gallop, JVD, rubs, systolic murmur - GI/Abdominal GI/Abdominal exam: Present: normal bowel sounds - Extremities Exam Extremities exam: Present: normal inspection, normal capillary refill. Absent: full ROM, edema - Back Exam Back exam: Present: normal inspection - Neurological Exam Neurological exam: Present: alert, oriented X3, CN II-XII intact - Psychiatric Psychiatric exam: Present: normal affect, normal mood - Skin Skin exam: Present: normal color, warm, dry Results - Labs CBC & BMP: 11/05/16 02:47 11/05/16 02:47 Lab Results: I have reviewed the past 24 hour labs
--- NOTE | 2016-11-05 10:00 | XRay Report ---
Portable chest November 05, 2016 at 0529 hours Indication: Pneumonia, cough Comparison images from previous day at 0324 hours Findings: Cardiomediastinal contours are stable. Coarsened interstitial markings, felt to be chronic in nature. No superimposed consolidative congestive process. No effusions. No acute osseous abnormalities. Impression: Chronic interstitial changes. No superimposed acute pulmonary process PROCEDURE INTERPRETED AT [facility] DEPARTMENT OF RADIOLOGY Final Report Signed by: Sanket Escobar
--- NOTE | 2016-11-05 11:29 | Pulmonology Progress Note ---
Pulmonary - PN: Subj Interval history: This is a 61-year-old black male whom I saw in pulmonary consultation on 2016. My impressions were. 1. COPD/asthma 2. Gastroesophageal reflux disease. Mild solid dysphasia. 3. Acute bronchitis and bronchospasm. Most likely secondary to nocturnal gastroesophageal reflux with microaspiration 4. Tobacco abuse 5. Insulin-dependent diabetes mellitus. 6. Prostatectomy for prostate cancer. 7. History of posttraumatic stress disorder 8. High blood pressure 9. See past history 10. History of colon polyp 11/04/2016. Clinically the patient is markedly better today previously noted tracheal and large airway wheeze has improved significantly and he is moving a lot more care. He is comfortable lying nearly flat in bed. He did not seem to have any shortness of breath while he was eating his breakfast. His chest x- ray shows no definite infiltrates and there is no pulmonary edema. ABGs on FiO2 32% show pH 7.39, PCO2 of 44.4, PO2 73 and a bicarb of 26. Electrolytes are normal. Creatinine is dropped to 1.0 with a BUN of 25. Glucoses are mildly elevated. White count is 8388 segs and 7 lymphs. H&H 12.7 and 36.7 and platelets are normal at 166,000. There are no positive cultures. From a pulmonary standpoint I think this patient can be moved to a regular room. When it is time for him to go home I think we could send him home on 10 of prednisone a day for 7 days and 10 every other day for 10 doses. He has duo nebs for nebulizers at home and these can be continued. His theophylline level was nonexistent so he should be encouraged to take this medicine. At the time of discharge I think his Singulair could be decreased to 10 mg daily. I have discussed antireflux regimen with this patient. When discharged she can be referred back to his Primary care physician. He does not need a follow-up appointment to see me. Note that drug screen is pending. 11/05/2016. This patient has been moved to pulmonary floor. His breath sounds are much better. He thanked me for tell them about antireflux regimen and we reviewed again in detail including how to determine how high to elevate the head of his bed and having to make it work. His chest is much better. Today's chest x-ray shows mild cardiomegaly both hilar areas contain benign calcifications. Pulmonary arteries are top normal. There is ectasia of the aortic knob. Mediastinum is normal. Lung elizalde reveal scattered non- coalescing areas of interstitial scarring at both bases. 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 Microbiology is negative. Electrolytes normal. Creatinine is 1.3 with a BUN of 32. CBC is stable. I have discussed the case with Dr. Weir and we have coordinated our care. I think the patient is ready for discharge. See my note 11/04/2016 for suggestions on discharge medicine and suggestions for follow-up. The patient is walking around and is not short of breath. He is asking to go home. Physical exam. Vital signs. See below Psychiatric. Oriented 3. General. In no distress and markedly improved compared to my exam yesterday. Face is symmetrical with no edema of the lips or tongue. The patient does have a big tongue. He has a history of sleep apnea. Neck is short thick slightly kyphotic with no meningismus. Lymphatics. No submandibular cervical supraclavicular or epitrochlear adenopathy Chest. Symmetrical slightly kyphotic. hyperinflated with moderate prolongation of expiration. Expiration is not quite complete. The previously noticed severe tracheal and large airway wheezes now mild wheeze. Heart. No gallop Abdomen obese. Nontender positive bowel sounds. No organs can be palpated Lower extremities. Chronic venous stasis. Neurologic. Cranial nerves are intact. Long track motor functions intact The remainder the physical exam is negative. Plan 11/03/2016 1. Singulair 10 mg p.o. twice daily 2. Try Atrovent inhalation. 3. Theophylline level. If low will give theophylline infusion to supplement the level 4. Antireflux regimen which I instructed the patient in 5. Consider GI consultation concerning solid dysphasia and gastroesophageal reflux disease. He could have a stricture. Also have to consider the possibility of Gómez's esophagitis 6. I agree with present medicines. 7. Sputum for Gram stain culture and sensitivity 8. 2 view chest x-ray in a.m. 9. ABGs in the morning. 10. I have discussed the case with Dr. Weir and we have coordinated our care. 11/04/2016. 1. See today's note above. Attention to suggested discharge medicines. 2. Okay to move to floor. 11/05/2016. 1. See today's note and my note 11/04/2016. Above. 2. Ready for discharge 3. Patient does not need to see me in follow-up. Refer back to his primary care physician 4. See above for recommended discharge medicines 5. Antireflux regimen 6. I will sign off. Reconsult if needed. Exam (Progress Note) - Constitutional Vitals: Period Temp Pulse Resp BP Sys/Chua Pulse Ox Last 24 Hr 96.7 F-97.6 F 71-96 18-20 130-147/86-98 93-98 Results - Labs CBC & BMP: 11/05/16 02:47 11/05/16 02:47
--- NOTE | 2016-11-05 11:54 | Discharge Summary ---
Hospital Course - Hospital Course Hospital Course: Mr. Fournier is a 61 year old AAM who has a long-standing h/o COPD and asthma. He had dyspnea on exertion and shortness of breath. He had been in his usual state of health. He took his medicines a little bit late on 11/02/2016. He went to bed in his normal state. He woke up during the night severely short of breath. He got up, took his inhaler and later on he got worse and he took his nebulizer and he did not get better and eventually he called the ambulance. The patient has mild solid dysphasia. He has gastroesophageal reflux with the gastric contents refluxing back up into his throat. This occurred land precipitated the acute respiratory distress. In addition the patient had continued to smoke cigarettes. He did said he did stop smoking for a period of time but stress because him to restart smoking. He said he was smoking one third of a pack of cigarettes per day. Patient also has obstructive sleep apnea. He uses CPAP at night. He was admitted to the intensive care unit. After aggressive treatment he improved and was moved to the floor. He is wheezing and shortness of breath has completely resolved. He is not ambulating in the hallways without any problems. He had acute bronchitis but no pneumonia on the chest x-ray, then got better with IV antibiotics and steroids. Patient has reached maximal hospital benefit and being discharged home in an improved and stable condition. Total discharge time 36 minutes. - Time spent with patient Time with patient DS: Greater than 30 minutes Diagnosis - Discharge Diagnosis (1) Acute exacerbation of chronic obstructive pulmonary disease (COPD) Status: Resolved Discharge Plan - Discharge Data Condition at Discharge: Stable Discharge Diet: advance to your usual diet Activity: resume usual activities as tolerated Hygiene: no restrictions Weight Bearing at Discharge: full weight bearing Driving: no restrictions Contact your physician if you experience:: fever over 101, Shortness of breath - Discharge Medications New Budesonide/Formoterol 160-4.5 [Symbicort 160-4.5] 2 puff INH BID PRN #1 inhaler PRN Reason: Shortness Of Breath cephALEXin [Keflex] 500 mg PO Q6HR #14 capsule Montelukast Tab [Singulair Tab] 10 mg PO BEDTIME #30 tablet predniSONE TAB [PredniSONE] 10 mg PO DAILY #10 tablet Pantoprazole Tab [Protonix Tab] 40 mg PO DAILY #30 tablet Continue Potassium Chloride Cap/Tab [K Dur] 20 meq PO BID amLODIPine [Norvasc] 10 mg PO DAILY Albuterol Neb [Proventil Neb] 1 puff RESP TX Q6H PRN PRN Reason: Shortness Of Breath/Wheezing Isosorbide Mononitrate [Isosorbide Mononitrate ER] 60 mg PO BID glipiZIDE [Glipizide] 20 mg PO BID Omeprazole [Prilosec] 40 mg PO DAILY Prazosin HCl 5 mg PO BEDTIME Metoprolol Tartrate Tab [Lopressor Tab] 75 mg PO BID Sertraline HCl 200 mg PO DAILY Simethicone Chew Tab [Mylicon Chew Tab] 80 mg PO TID Furosemide Tab [Lasix Tab] 20 mg PO BID DIURETIC risperiDONE [Risperidone] 3 mg PO BEDTIME Acamprosate Calcium [Campral] 666 mg PO TID Trazodone HCl 100 mg PO BEDTIME Melatonin/Pyridoxine HCl (B6) [Melatonin 3 mg Tablet] 2 each PO BEDTIME Aspirin 81 mg PO DAILY Theophylline ER Tab 300 mg PO BID W/MEALS #100 tablet Albuterol Inhaler [Proventil Inhaler] 2 puff INH Q6H PRN #1 inhaler PRN Reason: Shortness Of Breath/Wheezing Gabapentin 600 mg PO TID Cyclobenzaprine HCl 10 mg PO TID Nicotine Polacrilex [Nicotine Lozenge] 2 mg PO TID PRN PRN Reason: Nicotine Cravings - Follow Up or Referral - Forms/Instructions Exam - Constitutional Vitals: Period Temp Pulse Resp BP Sys/Chua Pulse Ox Last 24 Hr 96.7 F-97.6 F 71-96 18-20 130-147/86-98 93-98 Exam: General: No Acute Distress HEENT: Normocephalic, atraumatic, Extra ocular movements intact Neck: Supple, No JVD Chest: Clear to auscultation B/L CV: S1 + S2 audible without murmur, gallop or rub Abd: soft, NT, Non-distended, BS + Ext: No edema Skin: No purpura, bruising or rash Rheumatologic: No Joint deformities Neurologic: Strength 5/5 all extremities, no gross sensory deficits Discharge Results Procedures and tests throughout hospitalization: Pending Orders 11/03/16 12:40 Sputum Culture and Gram Stain Stat 11/04/16 15:48 Blood Culture Routine 11/06/16 04:00 Basic Metabolic Panel w/Mg IN AM CBC [Comp Blood Count Auto Diff] IN AM CMP [Comprehensive Metabolic Panel] IN AM Magnesium IN AM Phosphorous IN AM Labs on day of discharge: Labs from last 24 hours 11/05/16 11/05/16 11/05/16 06:52 02:47 02:47 WBC 10.3 RBC 3.87 Hgb 11.6 L Hct 33.9 L MCV 87.6 MCH 30 MCHC 34.2 RDW 13.3 Plt Count 165 MPV 12.4 H Neut % (Auto) 88.8 H Lymph % (Auto) 6.3 L Mcnairy % (Auto) 3.5 Eos % (Auto) 0.0 Baso % (Auto) 0.0 Neut # (Auto) 9.2 H Lymph # (Auto) 0.7 L Mcnairy # (Auto) 0.4 Eos # (Auto) 0.0 Baso # (Auto) 0.0 Immature Gran % 1.4 Nucleated RBC % 0.0 Immature Gran # 0.14 Nucleated RBCs # 0.00 Immature Plt Fraction 0.0 Sodium 137 Potassium 4.2 Chloride 103 Carbon Dioxide 29 Anion Gap 9.2 BUN 32 H Creatinine 1.30 GFR Calculation 94 BUN/Creatinine Ratio 24.00 H Glucose 225 H POC Glucose 268 H Calculated Osmolality 286.8 Calcium 9.5 Magnesium 2.3 11/04/16 11/04/16 20:41 16:39 WBC RBC Hgb Hct MCV MCH MCHC RDW Plt Count MPV Neut % (Auto) Lymph % (Auto) Mcnairy % (Auto) Eos % (Auto) Baso % (Auto) Neut # (Auto) Lymph # (Auto) Mcnairy # (Auto) Eos # (Auto) Baso # (Auto) Immature Gran % Nucleated RBC % Immature Gran # Nucleated RBCs # Immature Plt Fraction Sodium Potassium Chloride Carbon Dioxide Anion Gap BUN Creatinine GFR Calculation BUN/Creatinine Ratio Glucose POC Glucose 300 H 296 H Calculated Osmolality Calcium Magnesium DS: Provider Date of admission: 11/03/16 06:09 Primary care physician: . No PCP Attending physician on admission: Tim Kiran MD Consults: 11/03/16 06:09 Consult to Physician [CONS] Routine Comment: COPD with acute exacerbation Consulting Provider: Sukhjinder Tapia When should Consulting Provider be notified: In am Person Notified: Dr Tapia Date Notified: 11/03/16 Time Notified: 11:36 Consult Notification Comment: notified of consult 11/03/16 10:18 Consult to Physician [CONS] Routine Comment: Consulting Provider: Discharging clinician: Chris Pacheco MD
[2016-11-05] MEDS ORDERED: cephALEXin 500 MG CAPSULE PO SCH (12:00)
[2016-11-05 12:10] VITALS: BP 140/92
[2016-11-05] MEDS ORDERED: MONTELUKAST 10 MG TABLET PO SCH (21:00)
[2016-11-06] MEDS ORDERED: predniSONE 10 MG TABLET PO SCH (09:00)
--- NOTE | 2016-11-09 10:32 | Physician Query Form ---
CLICK EDIT DOCUMENT TO SELECT QUERY ANSWER --> OK --> SIGN Radha Malik RN, CCDS Certified Clinical Job Analyst W) [phone] (f) [phone] [email or web address] PROVIDERS: Make your selection(s) from the choices in EACH section by typing an "x" and enter comments in the comment section. Please use your independent medical judgment in providing your response. This request does not imply that any particular answer is desired or expected. CLINICAL INDICATORS: (Providers should not edit this section) The medical record indicates that the patient was admitted with COPD exacerbation, "gastroesophageal reflux with the gastric contents refluxing back up into his throat", "most likely secondary to nocturnal gastroesophageal reflux with microaspiration" and the patient was placed on Piperacillin. Based on the above, could you clarify the appropriate diagnosis, if significant , that supports the above abnormalities and additional evaluation, monitoring, and/or treatment rendered: ( x) Patient was monitored or treated for aspiration bronchitis ( ) Patient was not monitored or treated for aspiration bronchitis ( ) Patient was treated for COPD exacerbation only ( ) Other, please specify: ( ) Clinically unable to determine COMMENTS: PLEASE ALSO DOCUMENT RESPONSE IN PROGRESS NOTES AND/OR DISCHARGE SUMMARY Use of terms such as suspected, likely, or probable (associated with a specific diagnosis that is being evaluated, monitored, or treated as if it exists) are acceptable and can be restated in the discharge summary if not ruled out. MTDD
== END 2016-11-05 12:44 | disposition home or self-care (01) | DRG 177 ==
LOC: EDUNIT# → EDBD → N.ED 03:34 → SUATTDRO 06:08 → N.EDINP 06:08 → SUATTDRO 06:09 → N.TELES 07:56 → N.ICU 10:49 → N.5E 11-04 10:50
PROVIDERS: ADMIT Internal Medicine; ATTEND Hospitalist

== ENCOUNTER 2016-11-11 17:27 | Observation (INO) ==
[2016-11-11 18:46] LABS: Basophils % 0.1 % (0.0-0.8); Eosinophils % 0.5 % (0.00-10.9); Hematocrit 38.6 VOL% (42.0-52.0); Hemoglobin 13.1 GM/DL (14.0-18.0); Immature Granulocytes % 0.9 %; Immature Granulocytes Absolute 0.07 #; Lymphocytes # 1.2 10*3/uL (1.4-4.0); Lymphocytes % 14.4 % (21.2-54.2); Mean Corpuscular HGB Conc 33.9 GM/DL (32-36); Mean Corpuscular Hemoglobin 30 PG (27-34); Mean Corpuscular Volume 87.1 FL (87-102); Mean Platelet Volume 11.9 FL (9.6-12.0); Monocytes # 0.7 10*3/uL (0.11-0.8); Monocytes % 8.1 % (1.7-12.7); Neutrophils # 6.2 10*3/uL (1.4-7.4); Platelet Count 163 T/CUMM (130-400); Red Blood Count 4.43 MC/CUMM (3.8-5.5); Red Cell Distribution Width 12.9 % (9.3-17.3); White Blood Count 8.1 T/CUMM (4-12)
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
[2016-11-11 19:01] LABS: Albumin 3.3 G/DL (3.4-5.0); Bilirubin,Total 0.6 MG/DL (0.2-1.0); Calcium 9.5 MG/DL (8.5-10.1); Osmolality,Calculated 274.8 MOS/KG (273-304); Potassium 3.2 MMOL/L (3.5-5.1); Total Protein 6.9 G/DL (6.4-8.3)
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
[2016-11-11 19:23] LABS: Barbiturates Screen,Urine Negative (Negative); Benzodiazepines Screen,Urine Negative (Negative); Cannabinoid Screen,Urine Negative (Negative); Opiate Screen,Urine Positive (Negative); Phencyclidine Screen,Urine Negative (Negative)
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
[2016-11-12] MEDS ORDERED: MIDAZOLAM 2 MG/2 ML VIAL IV STA (00:42)
[2016-11-12] MEDS ORDERED: MIDAZOLAM 2 MG/2 ML VIAL ONE (00:52)
[2016-11-12] MEDS ORDERED: HYDROmorphone 2 MG/1 ML VIAL IV STA (06:14)
[2016-11-12] MEDS ORDERED: ONDANSETRON 4 MG/2 ML VIAL IV STA (06:15)
[2016-11-12] MEDS ORDERED: HYDROmorphone 2 MG/1 ML VIAL ONE (06:18)
[2016-11-12] MEDS ORDERED: ONDANSETRON 4 MG/2 ML VIAL ONE (06:18)
[2016-11-12] MEDS ORDERED: CLINDAMYCIN INJ 600 MG in PREMIX 1 EACH IV STA (06:36)
[2016-11-12] MEDS ORDERED: GENTAMICIN INJ 140 MG in SODIUM CHLORIDE 0.9% 100 ML IV STA (06:36)
[2016-11-12] MEDS ORDERED: CLINDAMYCIN INJ 50 ML IV ONE (06:56)
--- NOTE | 2016-11-12 07:39 | XRay Report ---
XR abdomen complete w decub Indication: Abdominal pain , left side Comparison: 08 November 2016 Findings: No free fluid or free air seen. Increased stool volume is seen in the colon. The bowel gas pattern otherwise appears within normal limits. No abnormal calcifications are present. No other abnormality is identified. Impression: Increased stool volume in the colon, may indicate constipation. PROCEDURE INTERPRETED AT [facility] DEPARTMENT OF RADIOLOGY Final Report Signed by: Dr. Daquan Walker
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
[2016-11-12] MEDS ORDERED: ACETAMINOPHEN 325 MG TABLET PO PRN (08:24)
[2016-11-12] MEDS ORDERED: ALBUTEROL 2.5 MG/3 ML NEB RESP TX PRN ×2 (08:24→11:41)
[2016-11-12] MEDS ORDERED: GLUCAGON 1 MG VIAL IM PRN (09:24)
[2016-11-12] MEDS ORDERED: DEXTROSE 50% 25 GM/50 ML SYRINGE IV PRN (09:24)
[2016-11-12] MEDS ORDERED: MAGNESIUM HYDROXIDE SUSP 30 ML UDCUP PO PRN (09:40)
[2016-11-12] MEDS: DOCUSATE SODIUM 100 MG CAPSULE PO SCH (10:00)
[2016-11-12] MEDS: POTASSIUM CHLORIDE 20 MEQ TABLET PO PRN ×4 (10:00→16:42)
[2016-11-12] MEDS: SODIUM CHLORIDE 0.9% 1,000 ML IV SCH (10:00)
[2016-11-12] MEDS ORDERED: BUDESONIDE/FORMOTEROL 160-4.5 INHALER 6 GM INH PRN (11:41)
[2016-11-12] MEDS: INSULIN LISPRO 100 UNIT/ML SUBCUT SCH ×3 (11:49→21:31)
[2016-11-12] MEDS: CYCLOBENZAPRINE 10 MG TABLET PO SCH ×2 (14:40→21:30)
[2016-11-12] MEDS: GABAPENTIN 600 MG TABLET PO SCH ×2 (14:41→21:30)
[2016-11-12] MEDS: THEOPHYLLINE ER 300 MG TABLET PO SCH (16:42)
[2016-11-12] MEDS: FUROSEMIDE 20 MG TABLET PO SCH (16:42)
[2016-11-12] MEDS: METOPROLOL TARTRATE 25 MG TABLET PO SCH (19:04)
[2016-11-12] MEDS: ISOSORBIDE MONONITRATE 60 MG TABLET PO SCH (19:04)
[2016-11-12] MEDS: PRAZOSIN 1 MG CAPSULE PO SCH (21:29)
[2016-11-12] MEDS: MELATONIN 3 MG TABLET PO SCH (21:29)
[2016-11-12] MEDS: risperiDONE 1 MG TABLET PO SCH (21:29)
[2016-11-12] MEDS: CIPROFLOXACIN 500 MG TABLET PO SCH (21:30)
[2016-11-12] MEDS: traZODone 50 MG TABLET PO SCH (21:30)
[2016-11-12] MEDS: POTASSIUM CHLORIDE 20 MEQ TABLET PO SCH (21:30)
[2016-11-12] MEDS: MONTELUKAST 10 MG TABLET PO SCH (21:30)
[2016-11-13] MEDS: SODIUM CHLORIDE 0.9% 1,000 ML IV SCH (07:25)
[2016-11-13] MEDS ORDERED: LACTULOSE 20 GM/30 ML UDCUP PO ONE (07:28)
[2016-11-13 07:36] LABS: Basophils % 0.2 % (0.0-0.8); Eosinophils # 0.1 10*3/uL (0.0-0.87); Hematocrit 30.8 VOL% (42.0-52.0); Immature Granulocytes % 0.9 %; Immature Granulocytes Absolute 0.07 #; Lymphocytes # 1.4 10*3/uL (1.4-4.0); Lymphocytes % 17.5 % (21.2-54.2); Mean Corpuscular HGB Conc 34.4 GM/DL (32-36); Mean Corpuscular Hemoglobin 31 PG (27-34); Mean Corpuscular Volume 88.8 FL (87-102); Mean Platelet Volume 12.3 FL (9.6-12.0); Monocytes # 0.8 10*3/uL (0.11-0.8); Monocytes % 10.1 % (1.7-12.7); Neutrophils # 5.6 10*3/uL (1.4-7.4); Neutrophils % 70.3 % (38.7-73.9); Platelet Count 179 T/CUMM (130-400); Red Cell Distribution Width 13.2 % (9.3-17.3)
[2016-11-13 07:40] LABS: Hemoglobin 10.6 GM/DL (14.0-18.0); Red Blood Count 3.47 MC/CUMM (3.8-5.5)
[2016-11-13 07:59] LABS: Calcium 9.3 MG/DL (8.5-10.1); Osmolality,Calculated 276.7 MOS/KG (273-304); Potassium 3.8 MMOL/L (3.5-5.1)
[2016-11-13] MEDS: ISOSORBIDE MONONITRATE 60 MG TABLET PO SCH ×2 (08:48→21:23)
[2016-11-13] MEDS: INSULIN LISPRO 100 UNIT/ML SUBCUT SCH ×4 (08:48→22:10)
[2016-11-13] MEDS: METOPROLOL TARTRATE 25 MG TABLET PO SCH ×2 (08:48→21:23)
[2016-11-13] MEDS: amLODIPine 10 MG TABLET PO SCH (08:48)
[2016-11-13] MEDS: ASPIRIN CHEW 81 MG TABLET PO SCH (08:48)
[2016-11-13] MEDS: FUROSEMIDE 20 MG TABLET PO SCH ×2 (08:49→16:53)
[2016-11-13] MEDS: GABAPENTIN 600 MG TABLET PO SCH ×3 (08:49→21:22)
[2016-11-13] MEDS: POTASSIUM CHLORIDE 20 MEQ TABLET PO SCH ×2 (08:49→21:24)
[2016-11-13] MEDS: THEOPHYLLINE ER 300 MG TABLET PO SCH ×2 (08:49→16:55)
[2016-11-13] MEDS: DOCUSATE SODIUM 100 MG CAPSULE PO SCH (08:49)
[2016-11-13] MEDS: SERTRALINE 100 MG TABLET PO SCH (08:49)
[2016-11-13] MEDS: CIPROFLOXACIN 500 MG TABLET PO SCH ×2 (08:49→21:24)
[2016-11-13] MEDS: CYCLOBENZAPRINE 10 MG TABLET PO SCH (08:50)
[2016-11-13] MEDS ORDERED: ACAMPROSATE CALCIUM PO SCH (09:00)
--- NOTE | 2016-11-13 10:03 | Hospitalist Progress Note ---
Assessment and Plan (1) Homicidal ideation Status: Acute Assessment and plan: Admit to ICU for close monitoring. Consult social sciences department chair for help with placement. 11/13 Pt. has been transferred to floor with sitter present. Pt. on 72 hour hold. No reports of pt. wanting to harm anyone. Current Visit: Yes (2) Suicidal ideations Status: Acute Assessment and plan: Admit to ICU for close monitoring. Suicide precautions. 11/13 Pt on floor with sitter present. There have not been any reports of sucidial ideation since transfer. Current Visit: Yes (3) Abdominal pain Status: Acute Assessment and plan: Abd xray shows 'increased stool volume'. Pt. received IV antibiotics in the ED. Start IVF at low rate. Prn pain med. Start stool softner and laxative. 11/13 Pt. denies abdominal pain this am. Abdominal assessment completed. Current Visit: Yes (4) Diabetes Status: Chronic Assessment and plan: Accuchecks achs. SSI. Diabetic diet. Current Visit: No (5) History of congestive heart failure Status: Chronic Current Visit: No (6) Hypertension Status: Chronic Assessment and plan: Home medications have been restarted. Blood pressure stable. Current Visit: No (7) Hypokalemia Status: Acute Assessment and plan: Potassium replacement. Recheck in am. 11/13 K 3.8 Current Visit: Yes (8) Obstructive sleep apnea Status: Chronic Assessment and plan: CPAP at night. 11/13 Cpap ordered for patient. He refused to wear overnight. Current Visit: No Hospitalist: Subjective Interval history: Pt. seen and examined this am. Labs and chart reviewed. Sitter present at the bed. Pt. is very lethargic and sleepy. Wakes briefly for assessment but falls back asleep. Pt. denies any issues just states "I'm trying to rest". No suicidal /homicidal ideation reported by nurses/PCT on unit. Pt. received Melatonin, Flexeril, and Gabapentin last night. Will cancel some scheduled medications and make them PRN. Pt. is on 72 hour hold and we are awaiting vacancy at [place] facility. We will continue to monitor patient. Exam - Constitutional Vitals: Period Temp Pulse Resp BP Sys/Chua Pulse Ox Last 24 Hr 97.9 F-99.0 F 69-93 15-22 108-176/60-116 89-98 General appearance: no acute distress, over weight - Head Head exam: Present: normal inspection, normocephalic - Eye Eye exam: Present: EOMI Pupils: Present: CHIQUITA - Respiratory Respiratory exam: Present: other (coarse) - Cardiovascular Cardiovascular exam: Present: regular rate and rhythm - GI/Abdominal GI/Abdominal exam: Present: normal bowel sounds, soft. Absent: tenderness - Extremities Exam Extremities exam: Present: edema (trace) - Neurological Exam Neurological exam: Absent: alert (pt. lethargic) - Psychiatric Psychiatric exam: Present: flat affect - Skin Skin exam: Present: normal color, warm, dry Results - Labs CBC & BMP: 11/13/16 04:30 11/13/16 04:30 Lab Results: I have reviewed the past 24 hour labs
[2016-11-13] MEDS ORDERED: SODIUM CHLORIDE 0.9% 500 ML IV ONE (11:57)
[2016-11-13] MEDS: risperiDONE 1 MG TABLET PO SCH (21:22)
[2016-11-13] MEDS: MELATONIN 3 MG TABLET PO SCH (21:23)
[2016-11-13] MEDS: MONTELUKAST 10 MG TABLET PO SCH (21:24)
[2016-11-13] MEDS: traZODone 50 MG TABLET PO SCH (21:24)
[2016-11-14] MEDS: PRAZOSIN 1 MG CAPSULE PO SCH (05:06)
[2016-11-14] MEDS: GABAPENTIN 600 MG TABLET PO SCH (08:50)
[2016-11-14] MEDS: CIPROFLOXACIN 500 MG TABLET PO SCH (08:50)
[2016-11-14] MEDS: SERTRALINE 100 MG TABLET PO SCH (08:50)
[2016-11-14] MEDS: ASPIRIN CHEW 81 MG TABLET PO SCH (08:50)
[2016-11-14] MEDS: THEOPHYLLINE ER 300 MG TABLET PO SCH (08:50)
[2016-11-14] MEDS: METOPROLOL TARTRATE 25 MG TABLET PO SCH (08:51)
[2016-11-14] MEDS: FUROSEMIDE 20 MG TABLET PO SCH (08:51)
[2016-11-14] MEDS: DOCUSATE SODIUM 100 MG CAPSULE PO SCH (08:51)
[2016-11-14] MEDS: POTASSIUM CHLORIDE 20 MEQ TABLET PO SCH (08:51)
[2016-11-14] MEDS: ISOSORBIDE MONONITRATE 60 MG TABLET PO SCH (08:51)
[2016-11-14] MEDS: INSULIN LISPRO 100 UNIT/ML SUBCUT SCH (08:51)
[2016-11-14] MEDS: amLODIPine 10 MG TABLET PO SCH (08:51)
[2016-11-14 09:43] VITALS: BP 119/77
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
== END 2016-11-14 12:45 | disposition home or self-care (01) ==
LOC: EDBD → EDUNIT# → N.EDINP 17:27 → N.ED 17:27 → SUATTDRO 11-12 08:00 → N.ICU 11-12 08:23 → N.4E 11-12 18:32
PROVIDERS: ADMIT Internal Medicine; ATTEND Family Medicine

== ENCOUNTER 2017-12-11 00:53 | Inpatient (IN) ==
[2017-12-11] MEDS ORDERED: SODIUM CHLORIDE 0.9% 1,000 ML IV STA (01:28)
[2017-12-11 01:37] LABS: Basophils % 0.1 % (0.0-0.8); Eosinophils # 0.1 10*3/uL (0.0-0.87); Eosinophils % 0.8 % (0.00-10.9); Hematocrit 43.4 VOL% (42.0-52.0); Hemoglobin 14.8 GM/DL (14.0-18.0); Immature Granulocytes % 0.4 %; Immature Granulocytes Absolute 0.04 #; Lymphocytes # 1.4 10*3/uL (1.4-4.0); Lymphocytes % 13.1 % (21.2-54.2); Mean Corpuscular HGB Conc 34.1 GM/DL (32-36); Mean Corpuscular Hemoglobin 31 PG (27-34); Mean Corpuscular Volume 90.4 FL (87-102); Monocytes # 1.2 10*3/uL (0.11-0.8); Monocytes % 10.9 % (1.7-12.7); Neutrophils # 8.1 10*3/uL (1.4-7.4); Neutrophils % 74.7 % (38.7-73.9); Platelet Count 122 T/CUMM (130-400); Red Cell Distribution Width 13.6 % (9.3-17.3); White Blood Count 10.8 T/CUMM (4-12)
[2017-12-11 01:52] LABS: Calcium 9.3 MG/DL (8.5-10.1); Osmolality,Calculated 279.5 MOS/KG (273-304); Total Protein 7.1 G/DL (6.4-8.3)
[2017-12-11] MEDS ORDERED: PIPERACILLIN/TAZOBACTAM 3,375 MG in SODIUM CHLORIDE 0.9% 100 ML IV STA ×2 (01:59→02:02)
[2017-12-11] MEDS ORDERED: ONDANSETRON 4 MG/2 ML VIAL IV STA (02:00)
[2017-12-11] MEDS ORDERED: MORPHINE 4 MG/1 ML VIAL IV STA ×2 (02:00→04:04)
[2017-12-11] MEDS ORDERED: metroNIDAZOLE INJ 500 MG in PREMIX 1 EACH IV STA (02:00)
[2017-12-11] MEDS ORDERED: ALBUTEROL/IPRATROPIUM 3 ML NEB RESP TX STA (02:22)
[2017-12-11 02:52] LABS: Apearance,Urine CLEAR (Clear); Bilirubin,Urine Negative (Negative); Blood, Urine Negative (Negative); Glucose,Urine (UA) Negative (Negative); Ketones,Urine 5 mg/dL (Negative); Mucus,Urine Occasional /LPF (Occasional); Nitrite,Urine Negative (Negative); Protein,Urine Negative; RBC,Urine 1 /HPF (0-4); Squamous Epithelial Cell,Urine Occasional /HPF (0-10); Urine Color Yellow (Yellow); Urine Specific Gravity 1.015 (1.001-1.035); WBC,Urine 1 /HPF (0-6)
[2017-12-11] MEDS ORDERED: HYDROmorphone 2 MG/1 ML VIAL IV STA (04:19)
[2017-12-11] MEDS ORDERED: BISACODYL 5 MG TABLET PO PRN (05:19)
[2017-12-11] MEDS ORDERED: ACETAMINOPHEN 325 MG TABLET PO PRN (05:19)
[2017-12-11] MEDS ORDERED: ONDANSETRON 4 MG/2 ML VIAL IV PRN (05:19)
[2017-12-11] MEDS ORDERED: GLUCAGON 1 MG VIAL IM PRN (05:54)
[2017-12-11] MEDS ORDERED: DEXTROSE 50% 25 GM/50 ML VIAL IV PRN (05:54)
[2017-12-11] MEDS ORDERED: CIPROFLOXACIN INJ 400 MG in PREMIX 1 EACH IV SCH (06:00)
[2017-12-11] MEDS ORDERED: ALBUTEROL/IPRATROPIUM 3 ML NEB RESP TX PRN (07:25)
[2017-12-11] MEDS: INSULIN LISPRO 100 UNIT/ML SUBCUT SCH ×4 (08:29→20:54)
[2017-12-11] MEDS: HYDROmorphone 2 MG/1 ML VIAL IV PRN ×3 (08:40→20:55)
[2017-12-11] MEDS: PANTOPRAZOLE 40 MG TABLET PO SCH (08:42)
[2017-12-11] MEDS: predniSONE 20 MG TABLET PO SCH (08:43)
[2017-12-11] MEDS: THEOPHYLLINE ER 300 MG TABLET PO SCH ×2 (08:43→16:09)
[2017-12-11] MEDS: CYCLOBENZAPRINE 10 MG TABLET PO SCH ×3 (08:43→20:54)
[2017-12-11] MEDS: GABAPENTIN 300 MG CAPSULE PO SCH ×3 (08:43→20:53)
[2017-12-11] MEDS: METOPROLOL TARTRATE 50 MG TABLET PO SCH ×2 (08:44→20:54)
[2017-12-11] MEDS: ISOSORBIDE MONONITRATE 60 MG TABLET PO SCH ×2 (08:45→20:53)
[2017-12-11] MEDS: FUROSEMIDE 20 MG TABLET PO SCH ×2 (08:46→16:09)
[2017-12-11] MEDS: THIAMINE 100 MG TABLET PO SCH (08:46)
[2017-12-11] MEDS: amLODIPine 10 MG TABLET PO SCH ×2 (08:46→20:53)
[2017-12-11] MEDS: ASPIRIN CHEW 81 MG TABLET PO SCH (08:46)
[2017-12-11] MEDS: FOLIC ACID 1 MG TABLET PO SCH (08:46)
[2017-12-11] MEDS: POTASSIUM CHLORIDE 20 MEQ TABLET PO PRN ×2 (08:47→16:09)
[2017-12-11] MEDS: POTASSIUM CHLORIDE 20 MEQ TABLET PO SCH ×2 (08:47→20:54)
[2017-12-11] MEDS: ENOXAPARIN 40 MG/0.4 ML SYRINGE SUBCUT SCH (08:52)
[2017-12-11] MEDS: metroNIDAZOLE INJ 500 MG in PREMIX 1 EACH IV SCH ×3 (08:52→22:00)
[2017-12-11] MEDS: ALBUTEROL/IPRATROPIUM 3 ML NEB RESP TX SCH ×3 (10:18→19:26)
[2017-12-11] MEDS: CIPROFLOXACIN INJ 400 MG in PREMIX 1 EACH IV SCH (20:56)
[2017-12-12] MEDS: HYDROmorphone 2 MG/1 ML VIAL IV PRN ×4 (00:51→20:35)
[2017-12-12] MEDS: metroNIDAZOLE INJ 500 MG in PREMIX 1 EACH IV SCH (02:42)
[2017-12-12 03:56] LABS: Eosinophils % 0.4 % (0.00-10.9); Hematocrit 34.1 VOL% (42.0-52.0); Hemoglobin 11.5 GM/DL (14.0-18.0); Immature Granulocytes % 0.6 %; Immature Granulocytes Absolute 0.06 #; Lymphocytes # 1.2 10*3/uL (1.4-4.0); Lymphocytes % 12.4 % (21.2-54.2); Mean Corpuscular HGB Conc 33.7 GM/DL (32-36); Mean Corpuscular Hemoglobin 31 PG (27-34); Mean Corpuscular Volume 91.2 FL (87-102); Mean Platelet Volume 11.5 FL (9.6-12.0); Monocytes # 0.9 10*3/uL (0.11-0.8); Neutrophils # 7.1 10*3/uL (1.4-7.4); Neutrophils % 76.6 % (38.7-73.9); Platelet Count 111 T/CUMM (130-400); Red Blood Count 3.74 MC/CUMM (3.8-5.5); Red Cell Distribution Width 13.2 % (9.3-17.3); White Blood Count 9.3 T/CUMM (4-12)
[2017-12-12 04:24] LABS: Calcium 8.4 MG/DL (8.5-10.1); Osmolality,Calculated 273.1 MOS/KG (273-304); Potassium 3.6 MMOL/L (3.5-5.1)
[2017-12-12] MEDS: ALBUTEROL/IPRATROPIUM 3 ML NEB RESP TX SCH ×4 (06:41→18:51)
[2017-12-12] MEDS: INSULIN LISPRO 100 UNIT/ML SUBCUT SCH ×4 (07:50→21:42)
[2017-12-12] MEDS: ISOSORBIDE MONONITRATE 60 MG TABLET PO SCH ×2 (08:50→20:25)
[2017-12-12] MEDS: THIAMINE 100 MG TABLET PO SCH (08:50)
[2017-12-12] MEDS: CYCLOBENZAPRINE 10 MG TABLET PO SCH ×3 (08:50→21:41)
[2017-12-12] MEDS: THEOPHYLLINE ER 300 MG TABLET PO SCH ×2 (08:50→16:03)
[2017-12-12] MEDS: predniSONE 20 MG TABLET PO SCH (08:50)
[2017-12-12] MEDS: GABAPENTIN 300 MG CAPSULE PO SCH ×3 (08:50→20:25)
[2017-12-12] MEDS: METOPROLOL TARTRATE 50 MG TABLET PO SCH ×2 (08:50→20:24)
[2017-12-12] MEDS: ASPIRIN CHEW 81 MG TABLET PO SCH (08:50)
[2017-12-12] MEDS: FOLIC ACID 1 MG TABLET PO SCH (08:51)
[2017-12-12] MEDS: FUROSEMIDE 20 MG TABLET PO SCH ×2 (08:51→16:02)
[2017-12-12] MEDS: amLODIPine 10 MG TABLET PO SCH ×2 (08:51→20:23)
[2017-12-12] MEDS: POTASSIUM CHLORIDE 20 MEQ TABLET PO SCH ×2 (08:51→20:25)
[2017-12-12] MEDS: PANTOPRAZOLE 40 MG TABLET PO SCH (08:51)
[2017-12-12] MEDS: ENOXAPARIN 40 MG/0.4 ML SYRINGE SUBCUT SCH (08:55)
[2017-12-12] MEDS: CIPROFLOXACIN INJ 400 MG in PREMIX 1 EACH IV SCH (08:56)
[2017-12-12] MEDS ORDERED: INFLUENZA VIRUS VACCINE 0.5 ML SYRINGE IM ONE (09:00)
[2017-12-12] MEDS: LEVOFLOXACIN 750 MG TABLET PO SCH (10:04)
[2017-12-12] MEDS ORDERED: HYDROcodone/CHLORPHENIRAMINE ER 5 ML UDCUP PO PRN (11:01)
[2017-12-12] MEDS: metroNIDAZOLE 500 MG TABLET PO SCH ×3 (12:04→20:23)
[2017-12-12] MEDS ORDERED: guaiFENesin 200 MG/10 ML UDCUP PO PRN (13:42)
[2017-12-13] MEDS: HYDROmorphone 2 MG/1 ML VIAL IV PRN (02:27)
[2017-12-13] MEDS: ALBUTEROL/IPRATROPIUM 3 ML NEB RESP TX SCH (07:47)
[2017-12-13 08:02] VITALS: BP 151/89
[2017-12-13] MEDS: metroNIDAZOLE 500 MG TABLET PO SCH (08:33)
[2017-12-13] MEDS: ASPIRIN CHEW 81 MG TABLET PO SCH (08:33)
[2017-12-13] MEDS: GABAPENTIN 300 MG CAPSULE PO SCH (08:33)
[2017-12-13] MEDS: ENOXAPARIN 40 MG/0.4 ML SYRINGE SUBCUT SCH ×2 (08:33→08:36)
[2017-12-13] MEDS: POTASSIUM CHLORIDE 20 MEQ TABLET PO SCH (08:34)
[2017-12-13] MEDS: THIAMINE 100 MG TABLET PO SCH (08:34)
[2017-12-13] MEDS: FOLIC ACID 1 MG TABLET PO SCH (08:34)
[2017-12-13] MEDS: predniSONE 20 MG TABLET PO SCH (08:34)
[2017-12-13] MEDS: FUROSEMIDE 20 MG TABLET PO SCH (08:34)
[2017-12-13] MEDS: PANTOPRAZOLE 40 MG TABLET PO SCH (08:34)
[2017-12-13] MEDS: LEVOFLOXACIN 750 MG TABLET PO SCH (08:34)
[2017-12-13] MEDS: THEOPHYLLINE ER 300 MG TABLET PO SCH (08:35)
[2017-12-13] MEDS: METOPROLOL TARTRATE 50 MG TABLET PO SCH (08:35)
[2017-12-13] MEDS: amLODIPine 10 MG TABLET PO SCH (08:35)
[2017-12-13] MEDS: INSULIN LISPRO 100 UNIT/ML SUBCUT SCH (09:04)
[2017-12-13] MEDS: CYCLOBENZAPRINE 10 MG TABLET PO SCH (09:04)
[2017-12-13] MEDS: ISOSORBIDE MONONITRATE 60 MG TABLET PO SCH (09:04)
== END 2017-12-13 09:00 | disposition left against medical advice (07) | DRG 392 ==
LOC: N.ED 00:53 → SUATTDRO 05:17 → N.EDINP 05:17 → N.2E 05:40
PROVIDERS: ADMIT Internal Medicine; ATTEND Internal Medicine

== ENCOUNTER 2018-02-07 19:57 | Observation (INO) ==
[2018-02-07] MEDS ORDERED: MORPHINE 4 MG/1 ML VIAL IV STA (20:37)
[2018-02-07] MEDS ORDERED: ONDANSETRON 4 MG/2 ML VIAL IV STA (20:37)
[2018-02-07] MEDS ORDERED: ALBUTEROL/IPRATROPIUM 3 ML NEB RESP TX STA (20:38)
[2018-02-07] MEDS ORDERED: methylPREDNISolone SOD SUC 125 MG/2 ML VIAL IV STA (20:38)
[2018-02-07 20:45] LABS: Basophils % 0.3 % (0.0-0.8); Eosinophils # 0.1 10*3/uL (0.0-0.87); Eosinophils % 1.4 % (0.00-10.9); Lymphocytes # 1.2 10*3/uL (1.4-4.0); Lymphocytes % 32.1 % (21.2-54.2); Mean Corpuscular HGB Conc 33.3 GM/DL (32-36); Mean Corpuscular Hemoglobin 31 PG (27-34); Mean Corpuscular Volume 93.6 FL (87-102); Mean Platelet Volume 11.7 FL (9.6-12.0); Monocytes # 0.3 10*3/uL (0.11-0.8); Monocytes % 7.4 % (1.7-12.7); Neutrophils # 2.2 10*3/uL (1.4-7.4); Neutrophils % 58.8 % (38.7-73.9); Platelet Count 151 T/CUMM (130-400); Red Blood Count 4.81 MC/CUMM (3.8-5.5); Red Cell Distribution Width 16.6 % (9.3-17.3); White Blood Count 3.7 T/CUMM (4-12)
[2018-02-07 21:01] LABS: Albumin 3.4 G/DL (3.4-5.0); Bilirubin,Total 0.6 MG/DL (0.2-1.0); Calcium 9.6 MG/DL (8.5-10.1); Osmolality,Calculated 283.4 MOS/KG (273-304); Potassium 3.5 MMOL/L (3.5-5.1); Total Protein 7.3 G/DL (6.4-8.3)
[2018-02-07] MEDS ORDERED: AZITHROMYCIN 250 MG TABLET PO STA (21:55)
[2018-02-07] MEDS ORDERED: cefTRIAXone 1,000 MG in SODIUM CHLORIDE 0.9% 100 ML IV STA (21:55)
[2018-02-07] MEDS ORDERED: ALBUTEROL 2.5 MG/3 ML NEB RESP TX PRN (23:07)
[2018-02-07] MEDS ORDERED: ONDANSETRON 4 MG/2 ML VIAL IV PRN (23:18)
[2018-02-07] MEDS ORDERED: GLUCAGON 1 MG VIAL IM PRN (23:18)
[2018-02-07] MEDS ORDERED: ACETAMINOPHEN 325 MG TABLET PO PRN (23:18)
[2018-02-07] MEDS ORDERED: DEXTROSE 50% 25 GM/50 ML SYRINGE IV PRN (23:18)
[2018-02-07] MEDS ORDERED: methylPREDNISolone SOD SUC 40 MG/1 ML VIAL IV SCH (23:30)
[2018-02-08] MEDS: LEVOFLOXACIN INJ 750 MG in PREMIX 1 EACH IV SCH ×2 (00:22→22:45)
[2018-02-08] MEDS: ALBUTEROL/IPRATROPIUM 3 ML NEB RESP TX SCH ×4 (01:32→19:25)
[2018-02-08] MEDS: MORPHINE 4 MG/1 ML VIAL IV PRN ×4 (01:55→21:49)
[2018-02-08] MEDS: methylPREDNISolone SOD SUC 40 MG/1 ML VIAL IV SCH ×3 (04:59→20:50)
[2018-02-08 05:22] LABS: Hematocrit 45.6 VOL% (42.0-52.0); Hemoglobin 15.5 GM/DL (14.0-18.0); Immature Granulocytes % 0.3 %; Immature Granulocytes Absolute 0.01 #; Lymphocytes # 0.4 10*3/uL (1.4-4.0); Lymphocytes % 11.4 % (21.2-54.2); Mean Corpuscular Hemoglobin 32 PG (27-34); Mean Corpuscular Volume 94.4 FL (87-102); Mean Platelet Volume 12.2 FL (9.6-12.0); Monocytes % 0.8 % (1.7-12.7); Neutrophils # 3.2 10*3/uL (1.4-7.4); Neutrophils % 87.5 % (38.7-73.9); Platelet Count 137 T/CUMM (130-400); Red Blood Count 4.83 MC/CUMM (3.8-5.5); Red Cell Distribution Width 16.2 % (9.3-17.3); White Blood Count 3.6 T/CUMM (4-12)
[2018-02-08 05:34] LABS: Calcium 9.5 MG/DL (8.5-10.1); Osmolality,Calculated 278.8 MOS/KG (273-304); Potassium 4.4 MMOL/L (3.5-5.1)
[2018-02-08] MEDS: FUROSEMIDE 20 MG TABLET PO SCH ×2 (09:04→15:35)
[2018-02-08] MEDS: METOPROLOL TARTRATE 50 MG TABLET PO SCH ×2 (09:04→20:47)
[2018-02-08] MEDS: ISOSORBIDE MONONITRATE 60 MG TABLET PO SCH ×2 (09:04→20:47)
[2018-02-08] MEDS: GABAPENTIN 300 MG CAPSULE PO SCH ×3 (09:04→20:47)
[2018-02-08] MEDS: ASPIRIN CHEW 81 MG TABLET PO SCH (09:04)
[2018-02-08] MEDS: SERTRALINE 100 MG TABLET PO SCH (09:04)
[2018-02-08] MEDS: THEOPHYLLINE ER 300 MG TABLET PO SCH ×2 (09:04→16:40)
[2018-02-08] MEDS: FOLIC ACID 1 MG TABLET PO SCH (09:06)
[2018-02-08] MEDS: INSULIN LISPRO 100 UNIT/ML SUBCUT SCH ×4 (09:06→20:51)
[2018-02-08] MEDS: THIAMINE 100 MG TABLET PO SCH (09:06)
[2018-02-08] MEDS: PANTOPRAZOLE 40 MG TABLET PO SCH (09:06)
[2018-02-08] MEDS: POTASSIUM CHLORIDE 20 MEQ TABLET PO SCH ×2 (09:06→20:47)
[2018-02-08] MEDS: ENOXAPARIN 40 MG/0.4 ML SYRINGE SUBCUT SCH (09:06)
[2018-02-08] MEDS ORDERED: guaiFENesin 200 MG/10 ML UDCUP PO PRN (11:34)
[2018-02-08] MEDS: NICOTINE 21 MG/24 HR PATCH TRANSDERM SCH (11:55)
[2018-02-08] MEDS ORDERED: risperiDONE 1 MG TABLET PO SCH (21:00)
[2018-02-08] MEDS ORDERED: FLUoxetine 20 MG CAPSULE PO SCH (21:00)
[2018-02-09] MEDS: ALBUTEROL/IPRATROPIUM 3 ML NEB RESP TX SCH ×2 (00:12→07:10)
[2018-02-09 04:58] LABS: Basophils % 0.1 % (0.0-0.8); Hematocrit 39.4 VOL% (42.0-52.0); Hemoglobin 13.2 GM/DL (14.0-18.0); Immature Granulocytes % 0.6 %; Immature Granulocytes Absolute 0.05 #; Lymphocytes # 0.7 10*3/uL (1.4-4.0); Lymphocytes % 8.6 % (21.2-54.2); Mean Corpuscular HGB Conc 33.5 GM/DL (32-36); Mean Corpuscular Hemoglobin 32 PG (27-34); Mean Corpuscular Volume 94.9 FL (87-102); Mean Platelet Volume 12.2 FL (9.6-12.0); Monocytes # 0.3 10*3/uL (0.11-0.8); Monocytes % 3.2 % (1.7-12.7); Neutrophils # 6.8 10*3/uL (1.4-7.4); Neutrophils % 87.5 % (38.7-73.9); Platelet Count 140 T/CUMM (130-400); Red Blood Count 4.15 MC/CUMM (3.8-5.5); Red Cell Distribution Width 15.8 % (9.3-17.3); White Blood Count 7.8 T/CUMM (4-12)
[2018-02-09] MEDS: methylPREDNISolone SOD SUC 40 MG/1 ML VIAL IV SCH (05:02)
[2018-02-09 05:28] LABS: Calcium 8.8 MG/DL (8.5-10.1); Osmolality,Calculated 280.8 MOS/KG (273-304); Potassium 4.5 MMOL/L (3.5-5.1)
[2018-02-09 07:34] VITALS: BP 124/77
[2018-02-09] MEDS: MORPHINE 4 MG/1 ML VIAL IV PRN (08:41)
[2018-02-09] MEDS: THEOPHYLLINE ER 300 MG TABLET PO SCH (09:04)
[2018-02-09] MEDS: THIAMINE 100 MG TABLET PO SCH (09:04)
[2018-02-09] MEDS: FOLIC ACID 1 MG TABLET PO SCH (09:04)
[2018-02-09] MEDS: ISOSORBIDE MONONITRATE 60 MG TABLET PO SCH (09:04)
[2018-02-09] MEDS: FUROSEMIDE 20 MG TABLET PO SCH (09:04)
[2018-02-09] MEDS: PANTOPRAZOLE 40 MG TABLET PO SCH (09:04)
[2018-02-09] MEDS: ASPIRIN CHEW 81 MG TABLET PO SCH (09:04)
[2018-02-09] MEDS: METOPROLOL TARTRATE 50 MG TABLET PO SCH (09:04)
[2018-02-09] MEDS: GABAPENTIN 300 MG CAPSULE PO SCH (09:04)
[2018-02-09] MEDS: POTASSIUM CHLORIDE 20 MEQ TABLET PO SCH (09:05)
[2018-02-09] MEDS: NICOTINE 21 MG/24 HR PATCH TRANSDERM SCH (09:05)
[2018-02-09] MEDS: ENOXAPARIN 40 MG/0.4 ML SYRINGE SUBCUT SCH (09:05)
[2018-02-09] MEDS: SERTRALINE 100 MG TABLET PO SCH (09:05)
[2018-02-09] MEDS: INSULIN LISPRO 100 UNIT/ML SUBCUT SCH (13:27)
== END 2018-02-09 12:49 | disposition home or self-care (01) ==
LOC: N.ED 19:57 → N.EDINP 19:57 → SUATTDRO 23:06 → N.2E 23:41
PROVIDERS: ADMIT Internal Medicine; ATTEND Family Medicine

== ENCOUNTER 2018-08-04 04:08 | Observation (INO) ==
[2018-08-04] MEDS ORDERED: ALBUTEROL/IPRATROPIUM 3 ML NEB RESP TX STA ×2 (04:27→07:04)
[2018-08-04] MEDS ORDERED: FUROSEMIDE 100 MG/10 ML VIAL IV STA (04:27)
[2018-08-04] MEDS ORDERED: methylPREDNISolone SOD SUC 125 MG/2 ML VIAL IV STA (04:27)
[2018-08-04 05:22] LABS: Basophils % 0.7 % (0.0-0.8); Eosinophils # 0.3 10*3/uL (0.0-0.87); Eosinophils % 6.2 % (0.00-10.9); Hematocrit 41.9 VOL% (42.0-52.0); Hemoglobin 13.4 GM/DL (14.0-18.0); Immature Granulocytes % 0.2 %; Immature Granulocytes Absolute 0.01 #; Lymphocytes # 1.4 10*3/uL (1.4-4.0); Mean Corpuscular Volume 93.5 FL (87-102); Mean Platelet Volume 11.4 FL (9.6-12.0); Monocytes % 10.6 % (1.7-12.7); Neutrophils % 52.3 % (38.7-73.9); Platelet Count 114 T/CUMM (130-400); Red Blood Count 4.48 MC/CUMM (3.8-5.5); Red Cell Distribution Width 14.2 % (9.3-17.3); White Blood Count 4.5 T/CUMM (4-12)
[2018-08-04 05:34] LABS: PT Patient Result 10.4 SECS
[2018-08-04] MEDS ORDERED: hydrALAZINE 20 MG/1 ML VIAL IV STA (06:24)
[2018-08-04] MEDS ORDERED: LACTULOSE 20 GM/30 ML UDCUP PO PRN (07:53)
[2018-08-04] MEDS ORDERED: ONDANSETRON 4 MG/2 ML VIAL IV PRN (07:53)
[2018-08-04] MEDS ORDERED: ACETAMINOPHEN 325 MG TABLET PO PRN (07:53)
[2018-08-04] MEDS ORDERED: NICOTINE 21 MG/24 HR PATCH TRANSDERM PRN (07:53)
[2018-08-04] MEDS ORDERED: ALBUTEROL 2.5 MG/3 ML NEB RESP TX PRN (07:56)
[2018-08-04] MEDS ORDERED: MORPHINE 4 MG/1 ML VIAL IV PRN (08:00)
[2018-08-04] MEDS ORDERED: DEXTROSE 50% 25 GM/50 ML VIAL IV PRN (08:06)
[2018-08-04] MEDS ORDERED: GLUCAGON 1 MG VIAL IM PRN (08:06)
[2018-08-04] MEDS ORDERED: SULINDAC 150 MG TABLET PO PRN (08:10)
[2018-08-04 08:13] LABS: Apearance,Urine CLEAR (Clear); Bilirubin,Urine Negative (Negative); Blood, Urine Negative (Negative); Glucose,Urine (UA) Negative (Negative); Ketones,Urine Negative (Negative); Mucus,Urine Occasional /LPF (Occasional); Nitrite,Urine Negative (Negative); Protein,Urine Negative; RBC,Urine <1 /HPF (0-4); Squamous Epithelial Cell,Urine Occasional /HPF (0-10); Urine Color Colorless (Yellow); Urine Specific Gravity 1.004 (1.001-1.035); Urine Urobilinogen < 2.0 EU/DL (0.2-1.0); WBC,Urine 2 /HPF (0-6)
[2018-08-04 08:27] LABS: Calcium 9.6 MG/DL (8.5-10.1); Osmolality,Calculated 283.1 MOS/KG (273-304); Risk Ratio 2.79; Thyroid Stimulating Hormone 1.37 uIU/ml (0.358-3.74); VLDL CHOLESTEROL 18.8 MG/DL
[2018-08-04] MEDS: GABAPENTIN 300 MG CAPSULE PO SCH ×3 (08:54→20:31)
[2018-08-04] MEDS: ENOXAPARIN 40 MG/0.4 ML SYRINGE SUBCUT SCH (08:54)
[2018-08-04] MEDS: POTASSIUM CHLORIDE 20 MEQ TABLET PO SCH ×2 (08:54→20:30)
[2018-08-04] MEDS: PANTOPRAZOLE 40 MG TABLET PO SCH (08:55)
[2018-08-04] MEDS: ASPIRIN CHEW 81 MG TABLET PO SCH (08:55)
[2018-08-04] MEDS: CETIRIZINE 10 MG TABLET PO SCH (08:55)
[2018-08-04 09:35] LABS: Barbiturates Screen,Urine Negative (Negative); Benzodiazepines Screen,Urine Negative (Negative); Cannabinoid Screen,Urine Negative (Negative); Opiate Screen,Urine Negative (Negative); Phencyclidine Screen,Urine Negative (Negative)
[2018-08-04] MEDS: methylPREDNISolone SOD SUC 40 MG/1 ML VIAL IV SCH ×2 (10:32→20:28)
[2018-08-04] MEDS: MAGNESIUM OXIDE 400 MG TABLET PO SCH ×2 (10:32→20:31)
[2018-08-04] MEDS: LOSARTAN 25 MG TABLET PO SCH (11:42)
[2018-08-04] MEDS: ISOSORBIDE MONONITRATE 60 MG TABLET PO SCH ×2 (11:42→20:30)
[2018-08-04] MEDS: FOLIC ACID 1 MG TABLET PO SCH (11:42)
[2018-08-04] MEDS: SERTRALINE 100 MG TABLET PO SCH (11:43)
[2018-08-04] MEDS: THIAMINE 100 MG TABLET PO SCH (11:43)
[2018-08-04] MEDS: ALBUTEROL/IPRATROPIUM 3 ML NEB RESP TX SCH ×2 (12:05→19:00)
[2018-08-04] MEDS: INSULIN LISPRO 100 UNIT/ML SUBCUT SCH ×3 (13:26→20:28)
[2018-08-04] MEDS: FUROSEMIDE 20 MG TABLET PO SCH (15:09)
[2018-08-04] MEDS: risperiDONE 1 MG TABLET PO SCH (20:30)
[2018-08-04] MEDS: PRAZOSIN 1 MG CAPSULE PO SCH (20:31)
[2018-08-04] MEDS: MORPHINE 4 MG/1 ML VIAL IV PRN (20:33)
[2018-08-04] MEDS ORDERED: FLUoxetine 20 MG CAPSULE PO SCH (21:00)
[2018-08-05] MEDS: ALBUTEROL/IPRATROPIUM 3 ML NEB RESP TX SCH ×4 (00:50→19:01)
[2018-08-05 05:16] LABS: Basophils % 0.1 % (0.0-0.8); Hematocrit 39.2 VOL% (42.0-52.0); Hemoglobin 12.9 GM/DL (14.0-18.0); Immature Granulocytes % 0.4 %; Immature Granulocytes Absolute 0.03 #; Lymphocytes # 0.5 10*3/uL (1.4-4.0); Lymphocytes % 6.8 % (21.2-54.2); Mean Corpuscular HGB Conc 32.9 GM/DL (32-36); Mean Corpuscular Volume 92.5 FL (87-102); Mean Platelet Volume 12.5 FL (9.6-12.0); Monocytes % 2.5 % (1.7-12.7); Neutrophils % 90.2 % (38.7-73.9); Platelet Count 119 T/CUMM (130-400); Red Blood Count 4.24 MC/CUMM (3.8-5.5); Red Cell Distribution Width 14.2 % (9.3-17.3); White Blood Count 7.5 T/CUMM (4-12)
[2018-08-05 05:28] LABS: Calcium 9.3 MG/DL (8.5-10.1); Osmolality,Calculated 279.2 MOS/KG (273-304)
[2018-08-05] MEDS: MORPHINE 4 MG/1 ML VIAL IV PRN ×3 (05:30→22:44)
[2018-08-05] MEDS: SERTRALINE 100 MG TABLET PO SCH (09:20)
[2018-08-05] MEDS: ISOSORBIDE MONONITRATE 60 MG TABLET PO SCH ×2 (09:20→21:00)
[2018-08-05] MEDS: GABAPENTIN 300 MG CAPSULE PO SCH ×3 (09:20→21:00)
[2018-08-05] MEDS: MAGNESIUM OXIDE 400 MG TABLET PO SCH ×2 (09:20→21:00)
[2018-08-05] MEDS: FUROSEMIDE 20 MG TABLET PO SCH ×2 (09:20→16:50)
[2018-08-05] MEDS: LOSARTAN 25 MG TABLET PO SCH (09:20)
[2018-08-05] MEDS: POTASSIUM CHLORIDE 20 MEQ TABLET PO SCH ×2 (09:20→21:00)
[2018-08-05] MEDS: ASPIRIN CHEW 81 MG TABLET PO SCH (09:20)
[2018-08-05] MEDS: FOLIC ACID 1 MG TABLET PO SCH (09:20)
[2018-08-05] MEDS: THIAMINE 100 MG TABLET PO SCH (09:20)
[2018-08-05] MEDS: PANTOPRAZOLE 40 MG TABLET PO SCH (09:21)
[2018-08-05] MEDS: CETIRIZINE 10 MG TABLET PO SCH (09:21)
[2018-08-05] MEDS: ENOXAPARIN 40 MG/0.4 ML SYRINGE SUBCUT SCH (09:23)
[2018-08-05] MEDS: methylPREDNISolone SOD SUC 40 MG/1 ML VIAL IV SCH ×2 (09:23→20:59)
[2018-08-05] MEDS: INSULIN LISPRO 100 UNIT/ML SUBCUT SCH ×4 (09:29→20:59)
[2018-08-05] MEDS ORDERED: LACTULOSE 20 GM/30 ML UDCUP PO ONE (10:23)
[2018-08-05] MEDS: SODIUM CHLORIDE 0.9% 1,000 ML IV SCH (11:15)
[2018-08-05] MEDS: risperiDONE 1 MG TABLET PO SCH (20:59)
[2018-08-05] MEDS: PRAZOSIN 1 MG CAPSULE PO SCH (21:00)
[2018-08-06] MEDS: ALBUTEROL/IPRATROPIUM 3 ML NEB RESP TX SCH ×3 (02:02→13:50)
[2018-08-06 05:19] LABS: Basophils % 0.1 % (0.0-0.8); Hematocrit 35.5 VOL% (42.0-52.0); Hemoglobin 11.6 GM/DL (14.0-18.0); Immature Granulocytes % 0.6 %; Immature Granulocytes Absolute 0.05 #; Lymphocytes # 0.4 10*3/uL (1.4-4.0); Lymphocytes % 5.1 % (21.2-54.2); Mean Corpuscular HGB Conc 32.7 GM/DL (32-36); Mean Corpuscular Volume 92.7 FL (87-102); Mean Platelet Volume 12.4 FL (9.6-12.0); Monocytes % 2.3 % (1.7-12.7); Neutrophils % 91.9 % (38.7-73.9); Platelet Count 105 T/CUMM (130-400); Red Blood Count 3.83 MC/CUMM (3.8-5.5); Red Cell Distribution Width 14.3 % (9.3-17.3); White Blood Count 7.9 T/CUMM (4-12)
[2018-08-06 05:47] LABS: Calcium 9.3 MG/DL (8.5-10.1)
[2018-08-06 05:59] LABS: Lymphocytes 1 % (20-55); Microcytosis 1+; Platelet Estimate Decreased; Polychromasia Few; Segmented Neutrophils 99 % (50-85); Total Cells Counted 100
[2018-08-06] MEDS: methylPREDNISolone SOD SUC 40 MG/1 ML VIAL IV SCH (08:48)
[2018-08-06] MEDS: ENOXAPARIN 40 MG/0.4 ML SYRINGE SUBCUT SCH (08:48)
[2018-08-06] MEDS: FOLIC ACID 1 MG TABLET PO SCH (08:49)
[2018-08-06] MEDS: INSULIN LISPRO 100 UNIT/ML SUBCUT SCH ×3 (08:49→16:29)
[2018-08-06] MEDS: LOSARTAN 25 MG TABLET PO SCH (08:49)
[2018-08-06] MEDS: GABAPENTIN 300 MG CAPSULE PO SCH ×2 (08:49→16:40)
[2018-08-06] MEDS: PANTOPRAZOLE 40 MG TABLET PO SCH (08:49)
[2018-08-06] MEDS: MAGNESIUM OXIDE 400 MG TABLET PO SCH (08:49)
[2018-08-06] MEDS: SERTRALINE 100 MG TABLET PO SCH (08:49)
[2018-08-06] MEDS: ISOSORBIDE MONONITRATE 60 MG TABLET PO SCH (08:49)
[2018-08-06] MEDS: POTASSIUM CHLORIDE 20 MEQ TABLET PO SCH (08:49)
[2018-08-06] MEDS: THIAMINE 100 MG TABLET PO SCH (08:49)
[2018-08-06] MEDS: CETIRIZINE 10 MG TABLET PO SCH (08:50)
[2018-08-06] MEDS: FUROSEMIDE 20 MG TABLET PO SCH ×2 (08:50→16:40)
[2018-08-06] MEDS: ASPIRIN CHEW 81 MG TABLET PO SCH (08:50)
[2018-08-06] MEDS: MORPHINE 4 MG/1 ML VIAL IV PRN (09:11)
[2018-08-06] MEDS: SODIUM CHLORIDE 0.9% 1,000 ML IV SCH (09:12)
[2018-08-06] MEDS ORDERED: NALOXONE 0.4 MG/ML VIAL IV ONE (11:30)
[2018-08-06] MEDS ORDERED: risperiDONE 1 MG TABLET PO SCH (11:30)
[2018-08-06 16:10] VITALS: BP 140/90
[2018-08-07] MEDS ORDERED: methylPREDNISolone SOD SUC 40 MG/1 ML VIAL IV SCH (09:00)
== END 2018-08-06 17:10 | disposition home or self-care (01) ==
LOC: EDUNIT# → EDBD → N.ED 04:08 → N.EDINP 04:08 → N.4E 12:28
PROVIDERS: ADMIT Internal Medicine; ATTEND Internal Medicine

== ENCOUNTER 2018-10-06 06:11 | Observation (INO) ==
[2018-10-06] MEDS ORDERED: methylPREDNISolone SOD SUC 125 MG/2 ML VIAL IV STA (06:26)
[2018-10-06] MEDS ORDERED: ALBUTEROL NEB SOLN 5 MG/ML 20 ML/BOTTLE RESP TX SCH (06:30)
[2018-10-06 06:42] LABS: Basophils % 0.5 % (0.0-0.8); Eosinophils # 0.2 10*3/uL (0.0-0.87); Eosinophils % 5.9 % (0.00-10.9); Hematocrit 41.6 VOL% (42.0-52.0); Hemoglobin 13.9 GM/DL (14.0-18.0); Immature Granulocytes % 0.5 %; Immature Granulocytes Absolute 0.02 #; Lymphocytes # 0.9 10*3/uL (1.4-4.0); Lymphocytes % 21.7 % (21.2-54.2); Mean Corpuscular HGB Conc 33.4 GM/DL (32-36); Mean Corpuscular Volume 92.9 FL (87-102); Mean Platelet Volume 11.1 FL (9.6-12.0); Monocytes % 10.2 % (1.7-12.7); Neutrophils % 61.2 % (38.7-73.9); Platelet Count 131 T/CUMM (130-400); Red Blood Count 4.48 MC/CUMM (3.8-5.5); Red Cell Distribution Width 15.6 % (9.3-17.3); White Blood Count 3.9 T/CUMM (4-12)
[2018-10-06 06:46] LABS: PT Patient Result 11.2 SECS; Partial Thromboplastin Time 24.5 SECS (0-40)
[2018-10-06 07:03] LABS: Albumin 3.8 G/DL (3.4-5.0); Bilirubin,Total 0.6 MG/DL (0.2-1.0); Calcium 9.3 MG/DL (8.5-10.1); Total Protein 7.3 G/DL (6.4-8.3)
[2018-10-06] MEDS ORDERED: POTASSIUM CHLORIDE 20 MEQ TABLET PO STA (08:18)
[2018-10-06] MEDS ORDERED: DEXTROSE 50% 25 GM/50 ML VIAL IV PRN (09:26)
[2018-10-06] MEDS ORDERED: NICOTINE 21 MG/24 HR PATCH TRANSDERM PRN (09:26)
[2018-10-06] MEDS ORDERED: guaiFENesin/DM ER 600-30 MG TABLET PO PRN (09:26)
[2018-10-06] MEDS ORDERED: ONDANSETRON 4 MG/2 ML VIAL IV PRN (09:26)
[2018-10-06] MEDS ORDERED: GLUCAGON 1 MG VIAL IM PRN (09:26)
[2018-10-06] MEDS ORDERED: ACETAMINOPHEN 325 MG TABLET PO PRN ×2 (09:26→10:07)
[2018-10-06] MEDS ORDERED: hydrALAZINE 20 MG/1 ML VIAL IV PRN (10:06)
[2018-10-06] MEDS: ALBUTEROL/IPRATROPIUM 3 ML NEB RESP TX SCH ×5 (10:45→22:27)
[2018-10-06 10:55] LABS: Barbiturates Screen,Urine Negative (Negative); Benzodiazepines Screen,Urine Negative (Negative); Cannabinoid Screen,Urine Negative (Negative); Opiate Screen,Urine Negative (Negative); Phencyclidine Screen,Urine Negative (Negative)
[2018-10-06 10:59] LABS: Apearance,Urine Slightly Hazy (Clear); Bacteria,Urine Many /HPF (Few); Bilirubin,Urine Negative (Negative); Blood, Urine Small mg/dL (Negative); Glucose,Urine (UA) Negative (Negative); Ketones,Urine 5 mg/dL (Negative); Mucus,Urine Moderate /LPF (Occasional); Nitrite,Urine Positive (Negative); Protein,Urine 30 MG/DL; RBC,Urine 2 /HPF (0-4); Squamous Epithelial Cell,Urine Occasional /HPF (0-10); Urine Color Yellow (Yellow); Urine Specific Gravity 1.015 (1.001-1.035); Urine Urobilinogen < 2.0 EU/DL (0.2-1.0); WBC,Urine 213 /HPF (0-6)
[2018-10-06] MEDS: SERTRALINE 100 MG TABLET PO SCH (11:18)
[2018-10-06] MEDS: ISOSORBIDE MONONITRATE 60 MG TABLET PO SCH ×2 (11:18→21:56)
[2018-10-06] MEDS: LOSARTAN 25 MG TABLET PO SCH (11:19)
[2018-10-06] MEDS: ASPIRIN CHEW 81 MG TABLET PO SCH (11:19)
[2018-10-06] MEDS: INSULIN REGULAR 100 UNIT/ML SUBCUT SCH ×3 (11:19→22:05)
[2018-10-06] MEDS ORDERED: ALBUTEROL 2.5 MG/3 ML NEB RESP TX PRN (12:31)
[2018-10-06] MEDS: LORazepam 0.5 MG TABLET PO PRN (12:47)
[2018-10-06] MEDS ORDERED: IPRATROPIUM/ALBUTEROL INHALER INH SCH (13:00)
[2018-10-06] MEDS: ACAMPROSATE PO SCH ×2 (15:43→22:54)
[2018-10-06] MEDS: GABAPENTIN 300 MG CAPSULE PO SCH ×2 (16:41→21:56)
[2018-10-06] MEDS: metFORMIN 500 MG TABLET PO SCH (16:41)
[2018-10-06] MEDS: FUROSEMIDE 20 MG TABLET PO SCH (16:41)
[2018-10-06] MEDS: MEROPENEM 1,000 MG in SODIUM CHLORIDE 0.9% 100 ML IV SCH (17:10)
[2018-10-06] MEDS: risperiDONE 1 MG TABLET PO SCH (21:57)
[2018-10-06] MEDS: MAGNESIUM OXIDE 400 MG TABLET PO SCH (21:57)
[2018-10-06] MEDS: POTASSIUM CHLORIDE 20 MEQ TABLET PO SCH (21:58)
[2018-10-06] MEDS: PRAZOSIN 1 MG CAPSULE PO SCH (21:59)
[2018-10-06] MEDS: methylPREDNISolone SOD SUC 40 MG/1 ML VIAL IV SCH (22:01)
[2018-10-07] MEDS: MEROPENEM 1,000 MG in SODIUM CHLORIDE 0.9% 100 ML IV SCH ×3 (01:11→16:46)
[2018-10-07] MEDS: ALBUTEROL/IPRATROPIUM 3 ML NEB RESP TX SCH ×6 (02:10→23:56)
[2018-10-07 04:54] LABS: Hematocrit 39.2 VOL% (42.0-52.0); Hemoglobin 12.8 GM/DL (14.0-18.0); Immature Granulocytes % 0.4 %; Immature Granulocytes Absolute 0.02 #; Lymphocytes # 0.4 10*3/uL (1.4-4.0); Mean Corpuscular HGB Conc 32.7 GM/DL (32-36); Mean Corpuscular Volume 92.5 FL (87-102); Monocytes % 3.6 % (1.7-12.7); Platelet Count 146 T/CUMM (130-400); Red Blood Count 4.24 MC/CUMM (3.8-5.5)
[2018-10-07 05:15] LABS: Calcium 9.6 MG/DL (8.5-10.1); Osmolality,Calculated 283.4 MOS/KG (273-304)
[2018-10-07] MEDS: INSULIN REGULAR 100 UNIT/ML SUBCUT SCH ×4 (07:58→21:11)
[2018-10-07] MEDS: ACAMPROSATE PO SCH ×3 (08:43→20:54)
[2018-10-07] MEDS: methylPREDNISolone SOD SUC 40 MG/1 ML VIAL IV SCH ×2 (08:44→21:00)
[2018-10-07] MEDS: GABAPENTIN 300 MG CAPSULE PO SCH ×3 (08:45→20:53)
[2018-10-07] MEDS: ISOSORBIDE MONONITRATE 60 MG TABLET PO SCH ×2 (08:45→20:52)
[2018-10-07] MEDS: PANTOPRAZOLE 40 MG TABLET PO SCH (08:45)
[2018-10-07] MEDS: POTASSIUM CHLORIDE 20 MEQ TABLET PO SCH ×2 (08:45→20:52)
[2018-10-07] MEDS: LOSARTAN 25 MG TABLET PO SCH (08:45)
[2018-10-07] MEDS: metFORMIN 500 MG TABLET PO SCH ×2 (08:45→16:46)
[2018-10-07] MEDS: THIAMINE 100 MG TABLET PO SCH (08:45)
[2018-10-07] MEDS: MAGNESIUM OXIDE 400 MG TABLET PO SCH ×2 (08:46→21:19)
[2018-10-07] MEDS: SERTRALINE 100 MG TABLET PO SCH (08:46)
[2018-10-07] MEDS: FUROSEMIDE 20 MG TABLET PO SCH ×2 (08:46→16:46)
[2018-10-07] MEDS: CETIRIZINE 10 MG TABLET PO SCH (08:46)
[2018-10-07] MEDS: ASPIRIN CHEW 81 MG TABLET PO SCH (08:46)
[2018-10-07] MEDS: LORazepam 0.5 MG TABLET PO PRN ×2 (08:47→20:51)
[2018-10-07] MEDS: risperiDONE 1 MG TABLET PO SCH (20:52)
[2018-10-07] MEDS: PRAZOSIN 1 MG CAPSULE PO SCH (20:53)
[2018-10-08] MEDS: MEROPENEM 1,000 MG in SODIUM CHLORIDE 0.9% 100 ML IV SCH (01:04)
[2018-10-08] MEDS: ALBUTEROL/IPRATROPIUM 3 ML NEB RESP TX SCH ×2 (03:45→07:17)
[2018-10-08 05:55] LABS: Hematocrit 39.5 VOL% (42.0-52.0); Hemoglobin 12.5 GM/DL (14.0-18.0); Immature Granulocytes % 0.6 %; Immature Granulocytes Absolute 0.04 #; Lymphocytes # 0.4 10*3/uL (1.4-4.0); Lymphocytes % 5.8 % (21.2-54.2); Mean Corpuscular HGB Conc 31.6 GM/DL (32-36); Mean Corpuscular Volume 95.6 FL (87-102); Mean Platelet Volume 11.8 FL (9.6-12.0); Monocytes % 3.6 % (1.7-12.7); Platelet Count 133 T/CUMM (130-400); Red Blood Count 4.13 MC/CUMM (3.8-5.5); Red Cell Distribution Width 15.5 % (9.3-17.3); White Blood Count 6.9 T/CUMM (4-12)
[2018-10-08 06:22] LABS: Calcium 9.2 MG/DL (8.5-10.1); Osmolality,Calculated 289.3 MOS/KG (273-304)
[2018-10-08 07:59] VITALS: BP 134/81
[2018-10-08] MEDS: INSULIN REGULAR 100 UNIT/ML SUBCUT SCH (08:37)
[2018-10-08] MEDS: methylPREDNISolone SOD SUC 40 MG/1 ML VIAL IV SCH (08:38)
[2018-10-08] MEDS: MAGNESIUM OXIDE 400 MG TABLET PO SCH (08:44)
[2018-10-08] MEDS: FUROSEMIDE 20 MG TABLET PO SCH (08:44)
[2018-10-08] MEDS: ISOSORBIDE MONONITRATE 60 MG TABLET PO SCH (08:44)
[2018-10-08] MEDS: PANTOPRAZOLE 40 MG TABLET PO SCH (08:44)
[2018-10-08] MEDS: LOSARTAN 25 MG TABLET PO SCH (08:45)
[2018-10-08] MEDS: THIAMINE 100 MG TABLET PO SCH (08:45)
[2018-10-08] MEDS: ASPIRIN CHEW 81 MG TABLET PO SCH (08:45)
[2018-10-08] MEDS: CETIRIZINE 10 MG TABLET PO SCH (08:45)
[2018-10-08] MEDS: POTASSIUM CHLORIDE 20 MEQ TABLET PO SCH (08:45)
[2018-10-08] MEDS: GABAPENTIN 300 MG CAPSULE PO SCH (08:45)
[2018-10-08] MEDS: SERTRALINE 100 MG TABLET PO SCH (08:45)
[2018-10-08] MEDS: ACAMPROSATE PO SCH (08:49)
[2018-10-08] MEDS: metFORMIN 500 MG TABLET PO SCH (08:51)
[2018-10-08] MEDS: LORazepam 0.5 MG TABLET PO PRN (08:56)
[2018-10-08] MEDS ORDERED: NICOTINE 7 MG/24 HR PATCH TRANSDERM SCH (09:00)
[2018-10-08] MEDS ORDERED: LEVOFLOXACIN 750 MG TABLET PO SCH (09:00)
== END 2018-10-08 12:09 | disposition home or self-care (01) ==
LOC: N.ED 06:11 → N.EDINP 06:11 → N.2E 09:24
PROVIDERS: ADMIT Internal Medicine Geriatric Medicine; ATTEND Internal Medicine Geriatric Medicine

== ENCOUNTER 2018-11-15 10:06 | Inpatient (IN) ==
[2018-11-15] MEDS ORDERED: KETOROLAC 30 MG/1 ML VIAL IV STA (10:16)
[2018-11-15] MEDS ORDERED: PANTOPRAZOLE 40 MG VIAL IV STA (10:16)
[2018-11-15] MEDS ORDERED: ORPHENADRINE 60 MG/2 ML VIAL IV STA (10:16)
[2018-11-15] MEDS ORDERED: ONDANSETRON 4 MG/2 ML VIAL IV STA (10:16)
[2018-11-15] MEDS ORDERED: AZITHROMYCIN INJ 500 MG in SODIUM CHLORIDE 0.9% 250 ML IV STA (10:16)
[2018-11-15] MEDS ORDERED: methylPREDNISolone SOD SUC 125 MG/2 ML VIAL IV STA (10:16)
[2018-11-15] MEDS ORDERED: ALBUTEROL NEB SOLN 5 MG/ML 20 ML/BOTTLE RESP TX SCH (10:30)
[2018-11-15] MEDS ORDERED: FUROSEMIDE 40 MG/4 ML VIAL IV STA (10:43)
[2018-11-15 10:45] LABS: Basophils % 0.5 % (0.0-0.8); Eosinophils # 0.1 10*3/uL (0.0-0.87); Eosinophils % 1.6 % (0.00-10.9); Hematocrit 39.6 VOL% (42.0-52.0); Hemoglobin 13.7 GM/DL (14.0-18.0); Immature Granulocytes % 0.3 %; Immature Granulocytes Absolute 0.01 #; Lymphocytes # 0.7 10*3/uL (1.4-4.0); Lymphocytes % 19.1 % (21.2-54.2); Mean Corpuscular HGB Conc 34.6 GM/DL (32-36); Mean Corpuscular Volume 92.3 FL (87-102); Mean Platelet Volume 11.4 FL (9.6-12.0); Monocytes % 10.4 % (1.7-12.7); Neutrophils % 68.1 % (38.7-73.9); Platelet Count 113 T/CUMM (130-400); Red Blood Count 4.29 MC/CUMM (3.8-5.5); Red Cell Distribution Width 14.1 % (9.3-17.3); White Blood Count 3.8 T/CUMM (4-12)
[2018-11-15 10:58] LABS: PT Patient Result 10.8 SECS (9.6-12.2); Partial Thromboplastin Time 22.9 SECS (20.8-36.0)
[2018-11-15 11:15] LABS: Alanine Aminotransferase 38 U/L (16-61); Albumin 3.5 G/DL (3.4-5.0); Alkaline Phosphatase 58 U/L (45-117); Aspartate Amino Transferase 26 U/L (0-37); Blood Urea Nitrogen 14 MG/DL (7-18); Calcium 9.2 MG/DL (8.5-10.1); Glucose 121 MG/DL (74-106); Osmolality,Calculated 278.5 MOS/KG (273-304); Total Protein 7.1 G/DL (6.4-8.3); Troponin I < 0.015 NG/ML (0.00-0.045)
[2018-11-15] MEDS ORDERED: POTASSIUM BICARB EFFERVESCENT 25 MEQ TABLET PO ONE (11:19)
[2018-11-15 12:46] LABS: Apearance,Urine Slightly Hazy (Clear); Bacteria,Urine Many /HPF (Few); Bilirubin,Urine Negative (Negative); Blood, Urine Negative (Negative); Glucose,Urine (UA) Negative (Negative); Hyaline Casts,Urine 5 /LPF (0-3); Ketones,Urine Negative (Negative); Mucus,Urine Few /LPF (Occasional); Nitrite,Urine Negative (Negative); Protein,Urine Negative; RBC,Urine 5 /HPF (0-4); Squamous Epithelial Cell,Urine Occasional /HPF (0-10); Urine Color Yellow (Yellow); Urine Specific Gravity 1.014 (1.001-1.035); Urine Urobilinogen < 2.0 EU/DL (0.2-1.0); WBC,Urine 76 /HPF (0-6)
[2018-11-15 12:51] LABS: Barbiturates Screen,Urine Negative (Negative); Benzodiazepines Screen,Urine Negative (Negative); Cannabinoid Screen,Urine Negative (Negative); Opiate Screen,Urine Negative (Negative); Phencyclidine Screen,Urine Negative (Negative)
[2018-11-15] MEDS ORDERED: ALBUTEROL/IPRATROPIUM 3 ML NEB RESP TX STA (13:00)
[2018-11-15] MEDS ORDERED: ACETAMINOPHEN 325 MG TABLET PO PRN (14:02)
[2018-11-15] MEDS ORDERED: LACTULOSE 20 GM/30 ML UDCUP PO PRN (14:02)
[2018-11-15] MEDS ORDERED: NICOTINE 21 MG/24 HR PATCH TRANSDERM PRN (14:02)
[2018-11-15] MEDS ORDERED: ALBUTEROL 2.5 MG/3 ML NEB RESP TX PRN (14:05)
[2018-11-15] MEDS ORDERED: SODIUM CHLORIDE 0.9% 1,000 ML IV SCH (15:00)
[2018-11-15] MEDS ORDERED: KETOROLAC 15 MG/1 ML VIAL IV ONE (15:11)
[2018-11-15] MEDS: cefTRIAXone 1,000 MG in SYRINGE 1 EACH IV SCH (15:35)
[2018-11-15] MEDS ORDERED: FUROSEMIDE 40 MG/4 ML VIAL IV SCH (16:00)
[2018-11-15] MEDS: FUROSEMIDE 40 MG TABLET PO SCH (17:09)
[2018-11-15] MEDS: ALBUTEROL/IPRATROPIUM 3 ML NEB RESP TX SCH (20:31)
[2018-11-15] MEDS: ENOXAPARIN 40 MG/0.4 ML SYRINGE SUBCUT SCH (21:07)
[2018-11-15] MEDS: methylPREDNISolone SOD SUC 40 MG/1 ML VIAL IV SCH (23:30)
[2018-11-16] MEDS: ALBUTEROL/IPRATROPIUM 3 ML NEB RESP TX SCH ×4 (02:15→20:13)
[2018-11-16 05:40] LABS: Basophils % 0.2 % (0.0-0.8); Hematocrit 39.3 VOL% (42.0-52.0); Hemoglobin 13.5 GM/DL (14.0-18.0); Immature Granulocytes % 0.5 %; Immature Granulocytes Absolute 0.03 #; Lymphocytes # 0.3 10*3/uL (1.4-4.0); Lymphocytes % 3.9 % (21.2-54.2); Mean Corpuscular HGB Conc 34.4 GM/DL (32-36); Mean Corpuscular Volume 92.3 FL (87-102); Mean Platelet Volume 12.3 FL (9.6-12.0); Monocytes % 2.8 % (1.7-12.7); Neutrophils % 92.6 % (38.7-73.9); Platelet Count 126 T/CUMM (130-400); Red Blood Count 4.26 MC/CUMM (3.8-5.5); Red Cell Distribution Width 13.9 % (9.3-17.3); White Blood Count 6.4 T/CUMM (4-12)
[2018-11-16 06:05] LABS: Lymphocytes 6 % (20-55); Segmented Neutrophils 90 % (50-85); Total Cells Counted 100
[2018-11-16 06:06] LABS: Anisocytosis 1+
[2018-11-16 06:07] LABS: Ovalocytes 1+; Platelet Estimate Adequate
[2018-11-16 06:09] LABS: Calcium 9.2 MG/DL (8.5-10.1); Osmolality,Calculated 277.1 MOS/KG (273-304); Risk Ratio 1.94
[2018-11-16] MEDS: PANTOPRAZOLE 40 MG TABLET PO SCH (08:50)
[2018-11-16] MEDS: FUROSEMIDE 40 MG TABLET PO SCH (08:50)
[2018-11-16] MEDS: methylPREDNISolone SOD SUC 40 MG/1 ML VIAL IV SCH (12:34)
[2018-11-16] MEDS: KETOROLAC 15 MG/1 ML VIAL IV SCH ×3 (12:35→23:32)
[2018-11-16] MEDS ORDERED: POTASSIUM CHLORIDE 20 MEQ TABLET PO ONE (14:24)
[2018-11-16] MEDS ORDERED: guaiFENesin 200 MG/10 ML UDCUP PO PRN (14:25)
[2018-11-16] MEDS: cefTRIAXone 1,000 MG in SYRINGE 1 EACH IV SCH (14:58)
[2018-11-16] MEDS ORDERED: LORazepam 1 MG TABLET PO ONE (20:12)
[2018-11-16] MEDS: ENOXAPARIN 40 MG/0.4 ML SYRINGE SUBCUT SCH (20:55)
[2018-11-17] MEDS: ALBUTEROL/IPRATROPIUM 3 ML NEB RESP TX SCH ×2 (01:53→07:48)
[2018-11-17] MEDS: KETOROLAC 15 MG/1 ML VIAL IV SCH (05:10)
[2018-11-17 05:57] LABS: Basophils % 0.2 % (0.0-0.8); Eosinophils % 0.5 % (0.00-10.9); Hematocrit 40.1 VOL% (42.0-52.0); Hemoglobin 13.6 GM/DL (14.0-18.0); Immature Granulocytes % 0.5 %; Immature Granulocytes Absolute 0.03 #; Lymphocytes # 1.6 10*3/uL (1.4-4.0); Lymphocytes % 23.5 % (21.2-54.2); Mean Corpuscular HGB Conc 33.9 GM/DL (32-36); Mean Platelet Volume 12.2 FL (9.6-12.0); Monocytes % 7.1 % (1.7-12.7); Neutrophils % 68.2 % (38.7-73.9); Platelet Count 130 T/CUMM (130-400); Red Blood Count 4.36 MC/CUMM (3.8-5.5); Red Cell Distribution Width 13.7 % (9.3-17.3); White Blood Count 6.6 T/CUMM (4-12)
[2018-11-17 06:26] LABS: Calcium 9.2 MG/DL (8.5-10.1); Osmolality,Calculated 275.7 MOS/KG (273-304)
[2018-11-17] MEDS ORDERED: POTASSIUM CHLORIDE 20 MEQ TABLET PO ONE (08:53)
[2018-11-17] MEDS ORDERED: methylPREDNISolone SOD SUC 40 MG/1 ML VIAL IV SCH (09:00)
[2018-11-17 09:30] VITALS: BP 159/92
[2018-11-17] MEDS: PANTOPRAZOLE 40 MG TABLET PO SCH (10:29)
[2018-11-17] MEDS: FUROSEMIDE 40 MG TABLET PO SCH (11:02)
== END 2018-11-17 11:13 | disposition home or self-care (01) | DRG 191 ==
LOC: EDBD → EDUNIT# → N.ED 10:06 → N.EDINP 14:02 → N.5E 14:39
PROVIDERS: ADMIT Internal Medicine; ATTEND Internal Medicine